=== PATIENT | female | born 1965 | race Caucasian/White ===

== ENCOUNTER 2017-01-07 20:39 | Inpatient (IN) | payer OTHER ==
[2017-01-07 22:17] LABS: Anisocytosis Slight; Basophils # (A) 0.1 k/uL (0-0.2); Basophils % (A) 1 %; CH 25.3; CHCM 30.9; Eosinophils # (A) 0.2 k/uL (0-0.7); Eosinophils % (A) 1 %; HDW 2.91; HGB 12.6 gm/dL (11.4-16.0); Hypochromasia Moderate; Luc # (Auto) 0.09; Luc % (Auto) 1; Lymphocytes # (A) 1.1 k/uL (1.0-4.8); Lymphocytes % (A) 8 %; MCH 24.7 pg (25.0-35.0); MCV 82.3 fL (80.0-100.0); Mean Platelet Volume 8.9; Monocytes # (A) 0.5 k/uL (0-1.0); Monocytes % (A) 4 %; Neutrophils # (A) 11.4 k/uL (1.3-7.7); Neutrophils % (A) 85 %; RBC 5.11 m/uL (3.80-5.40); RDW 18.3 % (11.5-15.5); WBC 13.4 k/uL (3.8-10.6); WBC (Perox) 13.98
[2017-01-07 22:18] LABS: INR 1.9 (<1.2); Partial Thromboplastin Time 41.5 sec (22.0-30.0); Prothrombin Time 18.5 sec (9.0-12.0)
[2017-01-07 22:26] LABS: ALT 26 U/L (9-52); AST 18 U/L (14-36); Alkaline Phosphatase 290 U/L (38-126); Anion Gap 15 mmol/L; Blood Urea Nitrogen 17 mg/dL (7-17); Calcium 9.2 mg/dL (8.4-10.2); Carbon Dioxide 25 mmol/L (22-30); Chloride 96 mmol/L (98-107); Glucose 107 mg/dL (74-99); Non-African American GFR(MDRD) >60 (>60 ml/min/1.73 sqM); Phosphorus 4.1 mg/dL (2.5-4.5); Potassium 3.7 mmol/L (3.5-5.1); Sodium 136 mmol/L (137-145); Total Bilirubin 0.6 mg/dL (0.2-1.3); Total Protein 7.2 g/dL (6.3-8.2)
--- NOTE | 2017-01-07 22:33 | ED ---
General Adult HPI - General Chief complaint: Shortness of Breath Stated complaint: SOB Source: EMS, RN notes reviewed, old records reviewed Mode of arrival: EMS Limitations: no limitations - History of Present Illness Initial comments: This is a 51-year-old female to the ER for evaluation today. This patient presents for evaluation in regards to shortness of breath, belly pain, swelling and patient has no history of cervical CVA. Patient accepted in transfer for evaluation, no prior testing was done. Patient has known positive PE. Not currently on anticoagulation. No fevers cough or congestion. Patient does complain of shortness of breath - Related Data Home Medications Medication Instructions Recorded Confirmed Hydrocodone/Acetaminophen [[place] 1 tab PO Q6HR PRN 01/07/17 01/07/17 5-325] Ranitidine HCl [Zantac] 150 mg PO BID 01/07/17 01/07/17 Rivaroxaban [Xarelto Starter Pack] 1 tab PO DIRECTED 01/07/17 01/07/17 Rizatriptan Benzoate [Rizatriptan] 10 mg PO DAILY PRN 01/07/17 01/07/17 diphenhydrAMINE HCL [Benadryl] 25 mg PO HS PRN 01/07/17 01/07/17 Allergies Allergy/AdvReac Type Severity Reaction Status Date / Time Penicillins Allergy Swelling Verified 01/07/17 22:20 Review of Systems ROS Statement: Those systems with pertinent positive or pertinent negative responses have been documented in the HPI. ROS Other: All systems not noted in ROS Statement are negative. Past Medical History Past Medical History: Cancer, COPD Additional Past Medical History / Comment(s): Possible cervical CA, traces of CA in liver History of Any Multi-Drug Resistant Organisms: None Reported Additional Past Surgical History / Comment(s): liver biopsy Past Psychological History: Anxiety Smoking Status: Current every day smoker Past Alcohol Use History: None Reported Past Drug Use History: None Reported General Exam Limitations: no limitations General appearance: alert, in no apparent distress Head exam: Present: atraumatic, normocephalic, normal inspection Eye exam: Present: normal appearance, PERRL, EOMI. Absent: scleral icterus, conjunctival injection, periorbital swelling ENT exam: Present: normal exam, mucous membranes moist Neck exam: Present: normal inspection. Absent: tenderness, meningismus, lymphadenopathy Respiratory exam: Present: normal lung sounds bilaterally, decreased breath sounds. Absent: respiratory distress, wheezes, rales, rhonchi, stridor Cardiovascular Exam: Present: regular rate, normal rhythm, normal heart sounds. Absent: systolic murmur, diastolic murmur, rubs, gallop, clicks GI/Abdominal exam: Present: soft, distended, normal bowel sounds, other ( Significant ascites). Absent: tenderness, guarding, rebound, rigid Extremities exam: Present: normal inspection, full ROM, normal capillary refill , other (Bilateral lower extremity edema). Absent: tenderness, pedal edema, joint swelling, calf tenderness Back exam: Present: normal inspection Neurological exam: Present: alert, oriented X3, CN II-XII intact Psychiatric exam: Present: normal affect, normal mood Skin exam: Present: warm, dry, intact, normal color. Absent: rash Course Vital Signs 01/07/17 01/07/17 01/07/17 20:42 21:15 22:18 Temperature 96.8 F L Pulse Rate 94 77 Respiratory 20 20 20 Rate Blood Pressure 112/73 102/72 O2 Sat by Pulse 98 95 Oximetry 01/07/17 01/08/17 23:11 00:08 Temperature Pulse Rate 97 95 Respiratory 20 Rate Blood Pressure 105/77 108/82 O2 Sat by Pulse 93 L 98 Oximetry - Reevaluation(s) Reevaluation #1: 01/08/17 00:18 Spoke with patient at length regarding diagnosis, questions answered EKG Findings - EKG Comments: EKG Findings:: EKG shows sinus rhythm rate of 97, [place] 128, QRS 80, QTC 469 Medical Decision Making - Medical Decision Making 51 female at a year with known PE coming in with increasing shortness of breath , 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 Patient has positive PE positive DVT, significant ascites. Patient readmitted for oncological evaluation, diagnostic and therapeutic paracentesis, anticoagulation - Lab Data Result diagrams: 01/07/17 21:31 01/07/17 21:31 Lab Results 01/07/17 01/07/17 01/07/17 Range/Units 21:31 21:31 21:31 WBC 13.4 H (3.8-10.6) k/uL RBC 5.11 (3.80-5.40) m/uL Hgb 12.6 (11.4-16.0) gm/dL Hct 42.0 (34.0-46.0) % MCV 82.3 (80.0-100.0) fL MCH 24.7 L (25.0-35.0) pg MCHC 30.0 L (31.0-37.0) g/dL RDW 18.3 H (11.5-15.5) % Plt Count 360 (150-450) k/uL Neutrophils % 85 % Lymphocytes % 8 % Monocytes % 4 % Eosinophils % 1 % Basophils % 1 % Neutrophils # 11.4 H (1.3-7.7) k/uL Lymphocytes # 1.1 (1.0-4.8) k/uL Monocytes # 0.5 (0-1.0) k/uL Eosinophils # 0.2 (0-0.7) k/uL Basophils # 0.1 (0-0.2) k/uL Hypochromasia Moderate Anisocytosis Slight PT (9.0-12.0) sec INR (<1.2) APTT (22.0-30.0) sec Sodium 136 L (137-145) mmol/L Potassium 3.7 (3.5-5.1) mmol/L Chloride 96 L (98-107) mmol/L Carbon Dioxide 25 (22-30) mmol/L Anion Gap 15 mmol/L BUN 17 (7-17) mg/dL Creatinine 0.70 (0.52-1.04) mg/dL Est GFR (MDRD) Af Amer >60 (>60 ml/min/1.73 sqM) Est GFR (MDRD) Non-Af >60 (>60 ml/min/1.73 sqM) Glucose 107 H (74-99) mg/dL Calcium 9.2 (8.4-10.2) mg/dL Phosphorus 4.1 (2.5-4.5) mg/dL Magnesium 2.0 (1.6-2.3) mg/dL Total Bilirubin 0.6 (0.2-1.3) mg/dL AST 18 (14-36) U/L ALT 26 (9-52) U/L Alkaline Phosphatase 290 H (38-126) U/L Total Creatine Kinase 55 (30-135) U/L CK-MB (CK-2) 0.7 (0.0-2.4) ng/mL CK-MB (CK-2) Rel Index 1.3 Troponin I 0.023 (0.000-0.034) ng/mL Total Protein 7.2 (6.3-8.2) g/dL Albumin 3.6 (3.5-5.0) g/dL Lipase 105 (23-300) U/L Urine Color Urine Appearance (Clear) Urine pH (5.0-8.0) Ur Specific [place] (1.001-1.035) Urine Protein (Negative) Urine Glucose (UA) (Negative) Urine Ketones (Negative) Urine Blood (Negative) Urine Nitrite (Negative) Urine Bilirubin (Negative) Urine Urobilinogen (<2.0) mg/dL Ur Leukocyte Esterase (Negative) Urine RBC (0-5) /hpf Urine WBC (0-5) /hpf Ur Squamous Epith Cells (0-4) /hpf Urine Mucus (None) /hpf 01/07/17 01/07/17 Range/Units 21:31 22:28 WBC (3.8-10.6) k/uL RBC (3.80-5.40) m/uL Hgb (11.4-16.0) gm/dL Hct (34.0-46.0) % MCV (80.0-100.0) fL MCH (25.0-35.0) pg MCHC (31.0-37.0) g/dL RDW (11.5-15.5) % Plt Count (150-450) k/uL Neutrophils % % Lymphocytes % % Monocytes % % Eosinophils % % Basophils % % Neutrophils # (1.3-7.7) k/uL Lymphocytes # (1.0-4.8) k/uL Monocytes # (0-1.0) k/uL Eosinophils # (0-0.7) k/uL Basophils # (0-0.2) k/uL Hypochromasia Anisocytosis PT 18.5 H (9.0-12.0) sec INR 1.9 H (<1.2) APTT 41.5 H (22.0-30.0) sec Sodium (137-145) mmol/L Potassium (3.5-5.1) mmol/L Chloride (98-107) mmol/L Carbon Dioxide (22-30) mmol/L Anion Gap mmol/L BUN (7-17) mg/dL Creatinine (0.52-1.04) mg/dL Est GFR (MDRD) Af Amer (>60 ml/min/1.73 sqM) Est GFR (MDRD) Non-Af (>60 ml/min/1.73 sqM) Glucose (74-99) mg/dL Calcium (8.4-10.2) mg/dL Phosphorus (2.5-4.5) mg/dL Magnesium (1.6-2.3) mg/dL Total Bilirubin (0.2-1.3) mg/dL AST (14-36) U/L ALT (9-52) U/L Alkaline Phosphatase (38-126) U/L Total Creatine Kinase (30-135) U/L CK-MB (CK-2) (0.0-2.4) ng/mL CK-MB (CK-2) Rel Index Troponin I (0.000-0.034) ng/mL Total Protein (6.3-8.2) g/dL Albumin (3.5-5.0) g/dL Lipase (23-300) U/L Urine Color Dark Yellow Urine Appearance Cloudy H (Clear) Urine pH 5.5 (5.0-8.0) Ur Specific [place] >1.050 H (1.001-1.035) Urine Protein 1+ H (Negative) Urine Glucose (UA) Negative (Negative) Urine Ketones Trace H (Negative) Urine Blood Negative (Negative) Urine Nitrite Negative (Negative) Urine Bilirubin 1+ H (Negative) Urine Urobilinogen 4.0 (<2.0) mg/dL Ur Leukocyte Esterase Negative (Negative) Urine RBC 4 (0-5) /hpf Urine WBC 6 H (0-5) /hpf Ur Squamous Epith Cells 13 H (0-4) /hpf Urine Mucus Few H (None) /hpf - Radiology Data Radiology results: report reviewed (Chest x-ray negative, ultrasound bilateral lower Short[place] positive for DVT), image reviewed Disposition Clinical Impression: Cervical cancer, DVT, bilateral lower limbs, Pulmonary emboli, Ascites Disposition: ADMITTED IP TO THIS [facility] Condition: Fair Referrals: Delonte Hadley, [Primary Care Provider] - 1-2 days
[2017-01-07 22:42] LABS: Creatine Kinase MB 0.7 ng/mL (0.0-2.4); Troponin I 0.023 ng/mL (0.000-0.034)
[2017-01-07 22:45] LABS: Appearance,Urine Cloudy (Clear); Bilirubin,Urine 1+ (Negative); Glucose,Urine (UA) Negative (Negative); Ketones,Urine Trace (Negative); Leukocyte Esterase,Urine Negative (Negative); Mucus,Urine Few /hpf; Nitrite,Urine Negative (Negative); PH, Urine 5.5 (5.0-8.0); Particle Count 15164; Protein,Urine 1+ (Negative); RBC,Urine 4 /hpf (0-5); Squamous Epithelial Cell,Urine 13 /hpf (0-4); UA Billing (MACRO vs. MICRO) MICRO; WBC,Urine 6 /hpf (0-5)
[2017-01-07 22:48] LABS: Specific Gravity,Urine >1.050 (1.001-1.035)
--- NOTE | 2017-01-07 23:38 | US ---
EXAMINATION TYPE: US venous doppler duplex LE LT DATE OF EXAM: 01/07/2017 11:23 PM COMPARISON: NONE CLINICAL HISTORY: Pain. right leg edma SIDE PERFORMED: Right TECHNIQUE: The lower extremity deep venous system is examined utilizing real time linear array sonog codie with graded compression, doppler sonography and color-flow sonography. VESSELS IMAGED: External Iliac Vein (EIV) Common Femoral Vein Deep Femoral Vein Greater Saphenous Vein * Femoral Vein Popliteal Vein Small Saphenous Vein * Proximal Calf Veins (* superficial vessels) Right Leg: Positive for DVT Left Leg: Positive for DVT Positive DVT right femoral vein, popiteal vein and left common femoral vein IMPRESSION: The exam shows evidence of bilateral acute deep venous thrombosis in the legs.
[2017-01-08] MEDS ORDERED: HEPARIN SODIUM,PORCINE 5,000 UNIT/ML 1 ML VIAL IV PRN (00:14)
[2017-01-08] MEDS ORDERED: HEPARIN SODIUM,PORCINE 5,000 UNIT/ML 1 ML VIAL IV ONE (00:14)
[2017-01-08] MEDS ORDERED: MORPHINE SULFATE 2 MG/ML SYRINGE IVP STA (00:15)
[2017-01-08] MEDS ORDERED: ONDANSETRON 4 MG/2 ML VIAL IVP PRN ×2 (00:15→01:54)
[2017-01-08] MEDS ORDERED: ONDANSETRON 4 MG/2 ML VIAL IVP STA (00:15)
[2017-01-08] MEDS ORDERED: MORPHINE SULFATE 2 MG/ML SYRINGE IVP PRN (00:15)
[2017-01-08] MEDS ORDERED: SODIUM CHLORIDE 0.9% 1,000 ML IV ONE (00:15)
[2017-01-08] MEDS: HEPARIN SODIUM,PORCINE/D5W PMX 25,000 UNIT in DEXTROSE/WATER 1 500ML.BAG IV SCH ×2 (00:44→16:19)
--- NOTE | 2017-01-08 01:39 | XR ---
EXAMINATION TYPE: XR chest 2V DATE OF EXAM: 01/08/2017 COMPARISON: NONE HISTORY: Chest pain TECHNIQUE: Frontal and lateral views of the chest are obtained. FINDINGS: There is blunting of costophrenic angles. Heart appears enlarged. There is some infiltrate at the lung bases bilaterally. There are chest leads. I see no definite heart failure. The bony thor ax appears intact. IMPRESSION: Bilateral pleural effusions with basilar pulmonary infiltrates. Cardiomegaly. No gross h eart failure seen. There are large central pulmonary arteries probably due to pulmonary hypertension.
[2017-01-08] MEDS ORDERED: ACETAMINOPHEN TAB 325 MG TAB PO PRN (01:54)
[2017-01-08] MEDS ORDERED: NALOXONE 0.4 MG/ML 1 ML VIAL IV PRN (01:54)
[2017-01-08] MEDS ORDERED: diphenhydrAMINE 25 MG CAP PO PRN (01:59)
[2017-01-08] MEDS ORDERED: SUMAtriptan SUCCINATE 50 MG TAB PO PRN (01:59)
[2017-01-08 02:06] VITALS: BMI 32.0
--- NOTE | 2017-01-08 02:37 | P.HPIM ---
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 Her legs have also been becoming more and more swollen right more than left. She has also been feeling dizzy, weak and nauseous as well. No fevers or chills but she was always feeling cold. Patient was diagnosed with cancer by the end of October by an outside facility but she did not see an oncologist yet. She told me she had an appointment on the with an oncologist. It has been hard for her to ambulate for the last several days secondary to significant weakness as well as the above symptoms. She does not recall any sick contacts or recent travel. At the outside facility patient was diagnosed with pulmonary embolism and deep venous thrombosis, she was started on Xarelto which she has some difficulties obtaining secondary to insurance issues. She also stopped taking it as because of significant abdominal pain. She presented to [facility] initially and over there she had a computed tomography scan of the chest and that showed significant bilateral pleural effusions greater on the right side as well as diffuse bilateral pulmonary emboli associated with right ventricular strain. Review of Systems 12 point review of system performed, negative except for HPI Past Medical History Past Medical History: Cancer, COPD, Deep Vein Thrombosis (DVT) Additional Past Medical History / Comment(s): Possible cervical CA, traces of CA in liver, enlarged heart History of Any Multi-Drug Resistant Organisms: None Reported Additional Past Surgical History / Comment(s): liver biopsy, history of cervical cancer removal many years ago. Past Anesthesia/Blood Transfusion Reactions: No Reported Reaction Past Psychological History: Anxiety Smoking Status: Current some day smoker Past Alcohol Use History: None Reported Past Drug Use History: None Reported - Past Family History Father History Unknown: Yes Family Medical History: Cancer, Hypertension Additional Family Medical History / Comment(s): after cancer went to brain Mother History Unknown: Yes Family Medical History: Coronary Artery Disease (CAD), Hyperlipidemia, Hypertension, Myocardial Infarction ([place]) Additional Family Medical History / Comment(s): heart caths with stents Medications and Allergies Home Medications Medication Instructions Recorded Confirmed Type Hydrocodone/Acetaminophen [[place] 1 tab PO Q6HR PRN 01/07/17 01/07/17 History 5-325] Ranitidine HCl [Zantac] 150 mg PO BID 01/07/17 01/07/17 History Rivaroxaban [Xarelto Starter Pack] 1 tab PO DIRECTED 01/07/17 01/07/17 History Rizatriptan Benzoate [Rizatriptan] 10 mg PO DAILY PRN 01/07/17 01/07/17 History diphenhydrAMINE HCL [Benadryl] 25 mg PO HS PRN 01/07/17 01/07/17 History Allergies Allergy/AdvReac Type Severity Reaction Status Date / Time Penicillins Allergy Swelling Verified 01/07/17 22:20 Physical Exam Vitals: Vital Signs Temp Pulse Pulse Resp BP BP Pulse Ox 01/08/17 01:51 97.3 F L 89 20 104/72 94 L 01/08/17 01:30 83 18 111/73 94 L 01/08/17 01:17 82 97 01/08/17 00:26 97.4 F L 92 20 102/75 96 01/08/17 00:08 95 108/82 98 01/07/17 23:11 97 20 105/77 93 L 01/07/17 22:18 77 20 102/72 95 01/07/17 21:15 20 01/07/17 20:42 96.8 F L 94 20 112/73 98 Intake and Output 01/07/17 01/07/17 01/08/17 14:59 22:59 06:59 Intake Total 150 Balance 150 Intake: Amount of Fluid Infused ( 150 ml) Other: Weight 71.668 kg 79.5 kg Patient Weight 01/08/17 06:59 Weight 79.5 kg Constitutional: No acute distress, conversant, pleasant Eyes:Anicteric sclerae, moist conjunctiva, no lid-lag, PERRLA, ENMT: Oropharynx clear, no erythema, exudates Neck: Supple, FROM, no masses, or JVD, No carotid bruits, No thyromegaly Lungs: Clear to auscultation, Clear to percussion, Normal respiratory effort, no accessory muscle use Cardiovascular: Heart regular in rate and rhythm, No murmurs, gallops, or rubs, 2+ peripheral edema R>L Abdominal: Soft, diffusely tender, severely distended, no guarding, rebound or rigidity, No hepatomegaly, No splenomegaly, No palpable mass Skin: Normal temperature, tone, texture, turgor, no induration, No subcutaneous nodules, No rash, lesions, No ulcers Extremities: No digital cyanosis, No clubbing, Pedal pulses intact and symmetrical, Radial pulses intact and symmetrical, No calf tenderness Psychiatric: Alert and oriented to person, place and time, appropriate affect, intact judgement Neuro: Muscles Strength 5/5 in all 4 extremities, Sensation to light touch grossly present throughout, Cranial nerves II-XII grossly intact, no focal sensory deficits Results CBC & Chem 7: 01/07/17 21:31 01/07/17 21:31 Labs: Abnormal Lab Results - Last 24 Hours (Table) 01/07/17 01/07/17 01/07/17 Range/Units 21:31 21:31 21:31 WBC 13.4 H (3.8-10.6) k/uL MCH 24.7 L (25.0-35.0) pg MCHC 30.0 L (31.0-37.0) g/dL RDW 18.3 H (11.5-15.5) % Neutrophils # 11.4 H (1.3-7.7) k/uL PT 18.5 H (9.0-12.0) sec INR 1.9 H (<1.2) APTT 41.5 H (22.0-30.0) sec Sodium 136 L (137-145) mmol/L Chloride 96 L (98-107) mmol/L Glucose 107 H (74-99) mg/dL Alkaline Phosphatase 290 H (38-126) U/L Urine Appearance (Clear) Ur Specific [place] (1.001-1.035) Urine Protein (Negative) Urine Ketones (Negative) Urine Bilirubin (Negative) Urine WBC (0-5) /hpf Ur Squamous Epith Cells (0-4) /hpf Urine Mucus (None) /hpf 01/07/17 Range/Units 22:28 WBC (3.8-10.6) k/uL MCH (25.0-35.0) pg MCHC (31.0-37.0) g/dL RDW (11.5-15.5) % Neutrophils # (1.3-7.7) k/uL PT (9.0-12.0) sec INR (<1.2) APTT (22.0-30.0) sec Sodium (137-145) mmol/L Chloride (98-107) mmol/L Glucose (74-99) mg/dL Alkaline Phosphatase (38-126) U/L Urine Appearance Cloudy H (Clear) Ur Specific [place] >1.050 H (1.001-1.035) Urine Protein 1+ H (Negative) Urine Ketones Trace H (Negative) Urine Bilirubin 1+ H (Negative) Urine WBC 6 H (0-5) /hpf Ur Squamous Epith Cells 13 H (0-4) /hpf Urine Mucus Few H (None) /hpf Thrombosis Risk Factor Assmnt - Choose All That Apply Any of the Below Risk Factors Present?: Yes Each Factor Represents 1 point: Age 41-60 years, Swollen legs (current) Other Risk Factors: Yes Each Risk Factor Represents 3 Points: History of DVT/PE Thrombosis Risk Factor Assessment Total Risk Factor Score: 5 Thrombosis Risk Factor Assessment Level: High Risk Assessment and Plan Plan: #1 acute bilateral pulmonary emboli, recent DVTs bilaterally: According to patient she did have an IVC filter put in at the outside facility, we'll need to obtain records in the morning. Started on heparin IV, will continue Likely switch to xarelto when stable #2 unknown type of cancer cervical vs. ovarian vs. other types: Oncology consult #3 severe ascites Likely secondary to intra-abdominal cancer combined with the liver metastases Likely need paracentesis
[2017-01-08 07:57] LABS: ALT 23 U/L (9-52); AST 14 U/L (14-36); Alkaline Phosphatase 220 U/L (38-126); Anion Gap 14 mmol/L; Blood Urea Nitrogen 15 mg/dL (7-17); Calcium 8.5 mg/dL (8.4-10.2); Carbon Dioxide 26 mmol/L (22-30); Chloride 97 mmol/L (98-107); Glucose 100 mg/dL (74-99); Magnesium 1.9 mg/dL (1.6-2.3); Non-African American GFR(MDRD) >60 (>60 ml/min/1.73 sqM); Phosphorus 4.1 mg/dL (2.5-4.5); Sodium 137 mmol/L (137-145); Total Bilirubin 0.4 mg/dL (0.2-1.3)
[2017-01-08 08:00] LABS: Anisocytosis Slight; Basophils # (A) 0.1 k/uL (0-0.2); Basophils % (A) 1 %; CH 24.7; Eosinophils # (A) 0.2 k/uL (0-0.7); Eosinophils % (A) 2 %; HCT 35.7 % (34.0-46.0); HDW 2.79; HGB 10.6 gm/dL (11.4-16.0); Hypochromasia Marked; Luc # (Auto) 0.14; Luc % (Auto) 1; Lymphocytes # (A) 1.2 k/uL (1.0-4.8); Lymphocytes % (A) 10 %; MCH 24.5 pg (25.0-35.0); MCHC 29.6 g/dL (31.0-37.0); MCV 82.6 fL (80.0-100.0); Mean Platelet Volume 9.1; Monocytes # (A) 0.8 k/uL (0-1.0); Monocytes % (A) 6 %; Neutrophils # (A) 10.6 k/uL (1.3-7.7); Neutrophils % (A) 81 %; RBC 4.32 m/uL (3.80-5.40); RDW 17.7 % (11.5-15.5); WBC 13.1 k/uL (3.8-10.6); WBC (Perox) 13.85
[2017-01-08 08:31] LABS: Hypersegmented Neutrophils Present; Large Platelets Present
[2017-01-08] MEDS ORDERED: IOHEXOL 350 MG/ML 25 ML BOTTLE (ORAL USE) PO PRN (08:34)
[2017-01-08] MEDS ORDERED: RX INFO: IV CONTRAST WAS GIVEN 1 EACH MISC MISCELLANE PRN (08:34)
[2017-01-08] MEDS: HYDROcodone/APAP 5-325MG 1 EACH TAB PO PRN ×2 (10:04→22:55)
[2017-01-08] MEDS: FAMOTIDINE 20 MG TAB PO SCH ×2 (10:05→20:06)
--- NOTE | 2017-01-08 13:15 | P.PN ---
Progress Note - Text Progress Note Date: 01/08/17 briefly this is a 51-year-old female with a diagnosis of cancer with metastasis , she does not know the primary (suspected cervical cancer versus ovarian) who presented with increasing abdominal distention pain and shortness of breath at the progressive lower extremity swelling, the patient apparently received most of her workup at [facility] but has not seen an oncologist she also was diagnosed with DVT and PE and reports having IVC filter. She has been off her Xarelto for the past month. She reportedly had a CT abdomen and pelvis a week ago done in [facility] results unknown. Except there is noted ascites with shifting dullness and abdominal distention. We will consult oncology and GI, we'll initiate diuresis started her on Lasix 40mg IV BID. We' ll request records from [facility] at [facility]. WE'LL await recommendations from consultants and continue to follow her clinical course
[2017-01-08] MEDS: FUROSEMIDE 10 MG/ML 4 ML VIAL IV SCH ×2 (14:18→20:07)
[2017-01-08] MEDS ORDERED: PHYTONADIONE 5 MG in SODIUM CHLORIDE 0.9% 50 ML IVPB STA (18:24)
--- NOTE | 2017-01-08 18:24 | P.CONS ---
History of Present Illness - Reason for Consult Consult date: 01/08/17 Metastatic malignancy. Ascites and pleural effusions - History of Present Illness The patient is a 51-year-old lady, with the complicated recent past medical history. She had presented to [facility] with increasing shortness of breath and lower extremity swelling, in late 11/12. She was found to have bilateral PE and DVT. Imaging at that time also revealed evidence of lesions in the liver suggestive of metastasis. She underwent a liver biopsy on 11/24/16. Tumor markers revealed markedly [place] 19-9[place] [address]. CEA was also elevated at 2720, with the CT a 125 increased to a much lesser extent at 198. AFP was normal at 2.3. Biopsy came back positive for moderately differentiated adenocarcinoma, most consistent with upper GI/ pancreatobiliary primary though lung was not totally ruled out. Around this time the patient apparently had a Pap smear that showed some atypical squamous cells but no definite evidence of malignancy. During that admission, the patient also had an IVC filter placed. She was prescribed as Xarelto on discharge, but apparently was not taking it regularly, due to coverage issues. Chest x-ray on 11/18/16 had shown bibasilar infiltrates and pleural effusions. CT chest abdomen and pelvis on 11/19/16 had revealed bilateral pulmonary emboli involving upper, middle and lower lobe branches. There was a small pleural effusion on the left side as well as a small speculated subpleural nodule in the left chest measuring 0.8 cm. There was also a 5 mm nodule in the right lung base. A CT of the abdomen had shown diffusely enlarged liver, nearly 20 cm, with multiple ill-defined hypodense lesions throughout consistent with metastasis, largest in the left lobe measuring 4.4 cm and the largest in the right measuring 4.6 cm. The spleen had also shown innumerable variable size fluid attenuation nodules largest anteriorly measuring 3.1 cm. Pancreatic and adrenal glands were negative. There was extensive mesenteric hyperdensity in the left anterior upper abdomen highly suggestive of peritoneal/omental metastatic deposits. Enlarged lymph nodes were noted in the left iliac and femoral regions. CT pelvis showed a moderate amount of ascites. Lower exudate Doppler had shown bilateral DVT, more extensive on the left compared to the right oncology follow-up was recommended, but according to the patient this was delayed as she could not find an oncologist near her would occur insurance. She was ultimately sent up to see Dr. De La Vega next week in the office. She went to the emergency room at [facility], on 12/31/16 complaining of some abdominal distention. Alpha phosphatase was elevated on labs at 217. She had a transvaginal ultrasound at that time that showed normal-appearing uterus, with a small cyst on the right ovary and the left ovary not visualized. Abdominal ultrasound again showed multiple lesions in the liver and spleen, and now development of ascites. She then came back to the ER at [facility] on 01/07/17, complaining of progressive shortness of breath as well as abdominal distention over the past few days. She had a repeat CTA done, which now showed progression of pleural effusions greater on the right than the left. Bilateral PE again noted, with decrease in clot burden. Compared to prior computed tomography scan done on there appeared to be progression of disease in the liver. The patient was thus transferred here, for further management. Consult was placed for further evaluation and recommendations. The patient denied any prior history of malignancy personally. She is a somewhat poor historian, and initially stated that she was told that she has cervical cancer. There is no history of breast or ovarian cancer in the family. He states that her father of some kind of cancer metastatic to the brain Review of Systems Constitutional: Reports fatigue, Reports poor appetite, Reports weakness, Reports weight loss Eyes: denies blurred vision, denies pain Ears: deny: decreased hearing, ear discharge, earache, tinnitus Ears, nose, mouth and throat: Denies headache, Denies sore throat Cardiovascular: Reports orthopnea, Reports palpitations, Reports shortness of breath Respiratory: Reports dyspnea, Reports pain on inspiration Gastrointestinal: Reports bloating, Reports loss of appetite Genitourinary: Denies dysuria, Denies hematuria Menstruation: Reports postmenopausal Musculoskeletal: Reports as per HPI (LE swelling) Integumentary: Denies pruritus, Denies rash Neurological: Reports weakness Psychiatric: Reports anxiety Endocrine: Reports fatigue, Reports weight change Hematologic/Lymphatic: Reports thrombophilia Past Medical History Past Medical History: Cancer, COPD, Deep Vein Thrombosis (DVT) Additional Past Medical History / Comment(s): Possible cervical CA, traces of CA in liver, enlarged heart History of Any Multi-Drug Resistant Organisms: None Reported Additional Past Surgical History / Comment(s): liver biopsy, history of cervical cancer removal many years ago. Past Anesthesia/Blood Transfusion Reactions: No Reported Reaction Past Psychological History: Anxiety Smoking Status: Current some day smoker Past Alcohol Use History: None Reported Past Drug Use History: None Reported - Past Family History Father History Unknown: Yes Family Medical History: Cancer, Hypertension Additional Family Medical History / Comment(s): after cancer went to brain Mother History Unknown: Yes Family Medical History: Coronary Artery Disease (CAD), Hyperlipidemia, Hypertension, Myocardial Infarction ([place]) Additional Family Medical History / Comment(s): heart caths with stents Medications and Allergies Home Medications Medication Instructions Recorded Confirmed Type Hydrocodone/Acetaminophen [[place] 1 tab PO Q6HR PRN 01/07/17 01/07/17 History 5-325] Ranitidine HCl [Zantac] 150 mg PO BID 01/07/17 01/07/17 History Rivaroxaban [Xarelto Starter Pack] 1 tab PO DIRECTED 01/07/17 01/07/17 History Rizatriptan Benzoate [Rizatriptan] 10 mg PO DAILY PRN 01/07/17 01/07/17 History diphenhydrAMINE HCL [Benadryl] 25 mg PO HS PRN 01/07/17 01/07/17 History Allergies Allergy/AdvReac Type Severity Reaction Status Date / Time Penicillins Allergy Swelling Verified 01/07/17 22:20 Physical Exam Vitals: Vital Signs Temp Pulse Pulse Resp BP BP Pulse Ox 01/08/17 11:58 97.5 F L 91 18 96/71 97 01/08/17 09:45 97.0 F L 96 18 108/79 96 01/08/17 04:00 89 18 100/74 94 L 01/08/17 01:51 97.3 F L 89 20 104/72 94 L 01/08/17 01:30 83 18 111/73 94 L 01/08/17 01:17 82 97 01/08/17 00:26 97.4 F L 92 20 102/75 96 01/08/17 00:08 95 108/82 98 01/07/17 23:11 97 20 105/77 93 L 01/07/17 22:18 77 20 102/72 95 01/07/17 21:15 20 01/07/17 20:42 96.8 F L 94 20 112/73 98 Intake and Output 01/08/17 01/08/17 01/08/17 06:59 14:59 22:59 Intake Total 550 100 837.05 Output Total 1000 Balance 550 100 -162.95 Intake: Amount of Fluid Infused ( 150 ml) Intake, IV Titration 400 777.05 Amount Heparin Sodium,Porcine/ 402.05 D5w Pmx 25,000 unit In Dextrose/Water 1 500ml. bag @ 18 UNITS/KG/HR 25.8 mls/hr IV .[id number] [facility] Rx#:[id number] Sodium Chloride 0.9% 1, 400 375 000 ml @ 100 mls/hr IV . Q10H ONE Rx#:[id number] Oral 100 60 Output: Urine 1000 Other: Voiding Method Bedpan Weight 79.5 kg - Constitutional General appearance: mild distress - EENT Eyes: EOMI, PERRLA ENT: hearing grossly normal, normal oropharynx - Neck Neck: no lymphadenopathy - Respiratory Respiratory: bilateral: diminished - Cardiovascular Rhythm: regular Heart sounds: normal: S1, S2 - Gastrointestinal General gastrointestinal: distended, hepatomegaly Localized gastrointestinal: tender: RUQ - Integumentary Integumentary: normal - Neurologic Neurologic: CNII-XII intact - Musculoskeletal 2 + LE edema Musculoskeletal: generalized weakness, strength equal bilaterally - Psychiatric Psychiatric: A&O x's 3, appropriate affect Results CBC & Chem 7: 01/08/17 05:44 01/08/17 05:44 Labs: Abnormal Lab Results - Last 24 Hours (Table) 01/07/17 01/07/17 01/07/17 Range/Units 21:31 21:31 21:31 WBC 13.4 H (3.8-10.6) k/uL Hgb (11.4-16.0) gm/dL MCH 24.7 L (25.0-35.0) pg MCHC 30.0 L (31.0-37.0) g/dL RDW 18.3 H (11.5-15.5) % Neutrophils # 11.4 H (1.3-7.7) k/uL PT 18.5 H (9.0-12.0) sec INR 1.9 H (<1.2) APTT 41.5 H (22.0-30.0) sec Sodium 136 L (137-145) mmol/L Chloride 96 L (98-107) mmol/L Glucose 107 H (74-99) mg/dL Alkaline Phosphatase 290 H (38-126) U/L Total Protein (6.3-8.2) g/dL Albumin (3.5-5.0) g/dL Urine Appearance (Clear) Ur Specific [place] (1.001-1.035) Urine Protein (Negative) Urine Ketones (Negative) Urine Bilirubin (Negative) Urine WBC (0-5) /hpf Ur Squamous Epith Cells (0-4) /hpf Urine Mucus (None) /hpf 01/07/17 01/08/17 01/08/17 Range/Units 22:28 05:44 05:44 WBC 13.1 H (3.8-10.6) k/uL Hgb 10.6 L (11.4-16.0) gm/dL MCH 24.5 L (25.0-35.0) pg MCHC 29.6 L (31.0-37.0) g/dL RDW 17.7 H (11.5-15.5) % Neutrophils # 10.6 H (1.3-7.7) k/uL PT (9.0-12.0) sec INR (<1.2) APTT 59.2 H (22.0-30.0) sec Sodium (137-145) mmol/L Chloride (98-107) mmol/L Glucose (74-99) mg/dL Alkaline Phosphatase (38-126) U/L Total Protein (6.3-8.2) g/dL Albumin (3.5-5.0) g/dL Urine Appearance Cloudy H (Clear) Ur Specific [place] >1.050 H (1.001-1.035) Urine Protein 1+ H (Negative) Urine Ketones Trace H (Negative) Urine Bilirubin 1+ H (Negative) Urine WBC 6 H (0-5) /hpf Ur Squamous Epith Cells 13 H (0-4) /hpf Urine Mucus Few H (None) /hpf 01/08/17 Range/Units 05:44 WBC (3.8-10.6) k/uL Hgb (11.4-16.0) gm/dL MCH (25.0-35.0) pg MCHC (31.0-37.0) g/dL RDW (11.5-15.5) % Neutrophils # (1.3-7.7) k/uL PT (9.0-12.0) sec INR (<1.2) APTT (22.0-30.0) sec Sodium (137-145) mmol/L Chloride 97 L (98-107) mmol/L Glucose 100 H (74-99) mg/dL Alkaline Phosphatase 220 H (38-126) U/L Total Protein 6.0 L (6.3-8.2) g/dL Albumin 2.8 L (3.5-5.0) g/dL Urine Appearance (Clear) Ur Specific [place] (1.001-1.035) Urine Protein (Negative) Urine Ketones (Negative) Urine Bilirubin (Negative) Urine WBC (0-5) /hpf Ur Squamous Epith Cells (0-4) /hpf Urine Mucus (None) /hpf Microbiology - Last 24 Hours (Table) 01/07/17 22:28 Urine Culture - Preliminary Urine,Voided Assessment and Plan (1) Dyspnea Narrative/Plan: The patient does have a known recent pulmonary embolus, and was not on anticoagulation regularly. However she states that she had been taking her Xarelto over the last few days with the last dose yesterday. CTA from yesterday showed decrease in size of the clot burden. At this time, I believe that her shortness of breath is more due to progression of pleural effusion and ascites. She is currently stable on oxygen, saturating 96% on 2 L. For further improvement, she is likely going to need fluid drainage from the peritoneal cavity and possibly the lung. Status: Acute (2) Ascites Narrative/Plan: This has been significantly progressive over the past week. At this time, I believe this is a significant component of her shortness of breath. There is also causing her marked discomfort. Therefore paracentesis is indicated. Consult had been placed to interventional radiology, but the procedure was held due to concerns about the patient's recent PE and the need to stop anticoagulation for the procedure. Had an extensive discussion with interventional radiology. The patient, clinically, should have significant benefit from the procedure. She is currently on IV heparin. Her clot is more than a month old. Her current symptoms are most likely not from the clot, but due to her pleural effusions and ascites. Therefore stopping anticoagulation for a few hours for this procedure should carry comparatively low risk. In addition, the patient actually has an IVC filter placed, in which case the risk of recurrent PE with stopping heparin for a few hours is essentially minimal. Radiology we'll therefore schedule the procedure for tomorrow. Heparin will be held, 2-4 hours prior to procedure, as recommended by radiology, and resumed after the procedure. Cytology will be ordered on the ascites fluid Status: Acute (3) Pulmonary emboli Narrative/Plan: The patient has bilateral PE and DVT. As noted, these are more than a month old. The patient was not taking her anticoagulation regularly in the interim, but appears to have been doing so more regularly over the last few days. Clot burden was diminished as noted. Current symptoms are felt to be more related to pleural effusion and ascites rather than her PE. The patient is currently on IV heparin. Continue IV heparin, until any planned invasive procedures are completed. She may need a thoracentesis. Once invasive procedures have been completed, she can resume Xarelto. Status: Acute (4) Metastatic adenocarcinoma Narrative/Plan: The patient's liver biopsy showed metastatic adenocarcinoma. She gave a history of cervical cancer. However her Pap smear had shown atypical squamous cells but no definite malignancy. In any case the histology in the liver as adenocarcinoma. Therefore she does NOT have a diagnosis of cervical cancer. She appears to have extensive metastatic disease from adenocarcinoma of upper GI /pancreatobiliary origin. Based on the very high CA 199 level, pancreaticobiliary origin is somewhat favored. She'll follow-up in the office with Dr. sahu, once acute conditions are controlled, to discuss treatment options Status: Acute (5) Coagulopathy Narrative/Plan: Her INR on admission was 1.9. This could be due to Xarelto affect, which usually lasts about 12-24 hours. However there could be a component of liver dysfunction also. I will give her a dose of IV vitamin K, given the planned procedure. PT INR will be checked in the a.m. there is no risk from reversing the INR, as the patient is being anticoagulated with IV heparin. In fact not reversing it, while the patient is on IV heparin could increase risk of bleeding Status: Acute
[2017-01-09] MEDS: HYDROcodone/APAP 5-325MG 1 EACH TAB PO PRN ×3 (04:42→19:41)
[2017-01-09] MEDS: HYDROmorphone 1 MG/ML 1 ML SYRINGE IV PRN (05:36)
[2017-01-09 06:55] LABS: Anisocytosis Slight; Basophils # (A) 0.1 k/uL (0-0.2); Basophils % (A) 1 %; CH 25.2; CHCM 30.8; Eosinophils # (A) 0.3 k/uL (0-0.7); Eosinophils % (A) 2 %; HCT 38.2 % (34.0-46.0); HDW 3.05; HGB 11.1 gm/dL (11.4-16.0); Hypochromasia Moderate; Luc # (Auto) 0.14; Luc % (Auto) 1; Lymphocytes # (A) 1.6 k/uL (1.0-4.8); Lymphocytes % (A) 13 %; MCH 23.9 pg (25.0-35.0); MCHC 29.1 g/dL (31.0-37.0); MCV 82.4 fL (80.0-100.0); Mean Platelet Volume 8.6; Monocytes # (A) 0.7 k/uL (0-1.0); Monocytes % (A) 5 %; Neutrophils # (A) 10.2 k/uL (1.3-7.7); Neutrophils % (A) 78 %; RBC 4.63 m/uL (3.80-5.40); RDW 18.5 % (11.5-15.5); WBC 13.1 k/uL (3.8-10.6); WBC (Perox) 12.79
[2017-01-09 07:04] LABS: INR 1.2 (<1.2); Partial Thromboplastin Time 32.7 sec (22.0-30.0)
[2017-01-09] MEDS: FAMOTIDINE 20 MG TAB PO SCH ×2 (08:13→19:43)
[2017-01-09] MEDS: FUROSEMIDE 10 MG/ML 4 ML VIAL IV SCH ×2 (10:21→19:43)
[2017-01-09] MEDS: ONDANSETRON 4 MG/2 ML VIAL IVP PRN ×2 (10:43→15:10)
--- NOTE | 2017-01-09 10:45 | CONS ---
CONSULTATION DATE OF DICTATION: 01/09/2017 REASON FOR CONSULTATION: Ascites. HISTORY OF PRESENT ILLNESS: The patient is a 51-year-old pleasant white female who was diagnosed with metastatic malignancy of unknown primary in October of 2016. Apparently in October of 2016 she presented with shortness of breath and lower extremity swelling, diagnosed with DVT, PE, and further workup revealed multiple lesions in the liver suspicious for metastasis. She underwent A liver biopsy that showed adenocarcinoma and also was noted to have elevated tumor markers of CEA as well as CA-19.9. The patient was discharged home on Xarelto; however, because of insurance reasons, she was not taking it regularly. She is regarding-admitted to the hospital with worsening shortness of breath, abdominal distention for the last 2 days' duration, and now diagnosed with massive ascites. She has been complaining of some abdominal discomfort, occasional nausea, vomiting, not feeling well over the last several weeks. She also has lower extremity swelling that started around 3 to 4 weeks. She denies any history of chronic liver disease. Denies any alcohol use. No history of jaundice or hepatitis in the past. PAST MEDICAL HISTORY: Her past medical history is significant for: 1. Newly diagnosed metastatic carcinoma of the liver. 2. History of COPD. 3. DVT/PE about 2 months ago. 4. Questionable cervical cancer. MEDICATIONS AT HOME: Medications at home include: 1. Xarelto. 2. Zantac. 3. [place]. 4. Benadryl. ALLERGIES: PENICILLIN. SOCIAL HISTORY: Denies any smoking or alcohol use. FAMILY HISTORY: Mother had some kind of cancer and hypertension. Father has coronary artery disease and hyperlipidemia. REVIEW OF SYSTEMS: CARDIOPULMONARY: No chest pain, but she does complain of shortness of breath. GENITOURINARY: No dysuria, hematuria. MUSCULOSKELETAL: Unremarkable. SKIN: Unremarkable. NEUROLOGY: Unremarkable. ENT/VISION: Unremarkable. CONSTITUTIONAL: Progressive weight loss. No fever, chills, night sweats. PHYSICAL EXAMINATION: She appears comfortable. Blood pressure is 107/77, pulse rate 71, temperature 97.1. HEENT EXAMINATION: Unremarkable. Conjunctivae are pink, sclerae anicteric. Oral cavity with no lesions. NECK: No JVD or lymph node enlargement. Chest was clear to auscultation. HEART: Regular rate and rhythm. ABDOMEN: Distended. Fluid thrill present. It was non-tender. EXTREMITIES: Two plus pedal edema. SKIN: No rashes. NEURO: She is alert and oriented x3. No focal deficits. IMAGING: Chest x-ray done at the time of admission to the hospital showed bilateral pleural effusions with basilar pulmonary infiltrates noted. CT of the abdomen done at [facility] prior to transfer showed hepatomegaly with multiple lesions in the liver and moderate amount of ascites. LABS FROM TODAY: WBC 13.1, hemoglobin 11.3, platelets 405. INR is 1.2. Basic metabolic panel is within normal limits. IMPRESSION: 1. This is a lady with history of metastatic malignancy to the liver of unknown primary, probably pancreatobiliary or upper GI in origin, who was seen by Dr. Bhat on consultation yesterday. She presents with shortness of breath, progressive abdominal distention and lower extremity swelling for the last several weeks' duration. CT of the abdomen apparently done at [facility] did show evidence of moderate amount of ascites. Clinically patient has significant amount of ascites. 2. History of DVT/PE, presently on Xarelto, which is on hold since yesterday. Presently on IV heparin. Most likely her ascites is related to metastatic malignancy. No history of chronic liver disease. RECOMMENDATIONS: I agree with Dr. Bhat's recommendation of proceeding with large-volume paracentesis for therapeutic purposes. According to the nursing staff, the patient is scheduled for large-volume paracentesis today. We will follow the patient closely during her hospital stay. Thank you for this consultation. MMODL / IJN: [id number] /
--- NOTE | 2017-01-09 15:03 | P.PN ---
Subjective Progress Note Date: 01/09/17 Principal diagnosis: The patient is a 51-year-old lady, with the complicated recent past medical history. She had presented to [facility] with increasing shortness of breath and lower extremity swelling, in late 11/12. She was found to have bilateral PE and DVT. Imaging at that time also revealed evidence of lesions in the liver suggestive of metastasis. She underwent a liver biopsy on 11/24/16. Tumor markers revealed markedly [place] 19[place] [address]. CEA was also elevated at 2720, with the CT a 125 increased to a much lesser extent at 198. AFP was normal at 2.3. Biopsy came back positive for moderately differentiated adenocarcinoma, most consistent with upper GI/ pancreatobiliary primary though lung was not totally ruled out. Around this time the patient apparently had a Pap smear that showed some atypical squamous cells but no definite evidence of malignancy. During that admission, the patient also had an IVC filter placed and discharged home and Xarelto, she was transferred here from [place] for progressive worsening dyspnea previous CT done there was consistent with a moderate amount of ascites Today patient is feeling pretty fatigued and tired denies any lightheadedness report some weakness, denies any improvement of her shortness of breath. No acute events overnight Objective - Vital Signs Vital signs: Vital Signs Temp 97.1 F L 01/09/17 04:00 Pulse 84 01/09/17 11:41 Resp 16 01/09/17 11:41 BP 97/75 01/09/17 11:41 Pulse Ox 93 L 01/09/17 11:41 Intake & Output 01/08/17 01/09/17 01/09/17 18:59 06:59 18:59 Intake Total 937.05 625 475.43 Output Total 1000 1350 150 Balance -62.95 -725 325.43 Weight 80.5 kg Intake: IV 25 45 0.9@5mls/hr 25 45 Intake, IV Titration 777.05 430.43 Amount Heparin Sodium,Porcine/ 402.05 430.43 D5w Pmx 25,000 unit In Dextrose/Water 1 500ml. bag @ 18 UNITS/KG/HR 25.8 mls/hr IV .[id number] [facility] Rx#:[id number] Sodium Chloride 0.9% 1, 375 000 ml @ 100 mls/hr IV . Q10H ONE Rx#:[id number] Oral 160 600 Output: Urine 1000 1350 150 Other: Voiding Method Bedpan Bedpan Bedpan # Voids 1 - Exam Constitutional: No acute distress, conversant, pleasant Eyes: Anicteric sclerae, moist conjunctiva, no lid-lag, PERRLA ENMT: NC/AT,Oropharynx clear, no erythema, exudates Neck:Supple, FROM, no masses, or JVD, No carotid bruits; No thyromegaly Lungs: Clear to auscultation but diminished in the bases bilaterally, Clear to percussion, Normal respiratory effort, no accessory muscle use Cardiovascular: Heart regular in rate and rhythm, No murmurs, gallops, or rubs no peripheral edema Abdominal: Soft Nontender, distended with shifting dullness, no guarding, no rebound or rigidity, Normoactive bowel sounds Skin: Normal temperature, tone, texture, turgor, No induration No subcutaneous nodules, No rash, lesions, No ulcers Extremities:No digital cyanosis No clubbing, Pedal pulses intact and symmetrical Radial pulses intact and symmetrical Normal gait and station, No calf tenderness Psychiatric: Alert and oriented to person, place and time, Appropriate affect Intact judgement Neuro: Muscles Strength 5/5 in all 4 extremities, Sensation to light touch grossly present throughout, Cranial nerves II-XII grossly intact. No focal sensory deficits - Labs CBC & Chem 7: 01/09/17 06:14 01/08/17 05:44 Labs: Abnormal Lab Results - Last 24 Hours (Table) 01/09/17 01/09/17 Range/Units 06:14 06:14 WBC 13.1 H (3.8-10.6) k/uL Hgb 11.1 L (11.4-16.0) gm/dL MCH 23.9 L (25.0-35.0) pg MCHC 29.1 L (31.0-37.0) g/dL RDW 18.5 H (11.5-15.5) % Neutrophils # 10.2 H (1.3-7.7) k/uL INR 1.2 H (<1.2) APTT 32.7 H (22.0-30.0) sec Microbiology - Last 24 Hours (Table) 01/07/17 22:28 Urine Culture - Final Urine,Voided 01/07/17 21:31 Blood Culture - Preliminary Blood No Growth after 24 hours Assessment and Plan (1) Dyspnea Narrative/Plan: * Multifactorial secondary to symptomatic ascites superimposed on underlying pleural effusion possibly malignant superimposed on underlying PE and COPD * Continue supplemental oxygen and Lasix for diuresis * Patient scheduled for paracentesis which will hopefully be therapeutic, we'll reassess the patient tomorrow and if improved send her home if not she'll probably need to have a thoracentesis Status: Acute (2) Coagulopathy Status: Acute (3) DVT, bilateral lower limbs Status: Acute (4) Metastatic adenocarcinoma Narrative/Plan: Appreciate oncology Dr. 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 Status: Acute (5) Pulmonary emboli Narrative/Plan: * Anticoagulation held we'll restart postprocedure * Repeat CT of the chest is showing gradually progressive decrease in the clot burden of note the patient does have IVC filter that was placed at [facility] Status: Acute (6) Ascites Narrative/Plan: * Patient is scheduled to have abdominal paracentesis by IR today Status: Acute
[2017-01-09] MEDS: HEPARIN SODIUM,PORCINE/D5W PMX 25,000 UNIT in DEXTROSE/WATER 1 500ML.BAG IV SCH (19:40)
--- NOTE | 2017-01-09 22:48 | US ---
EXAMINATION TYPE: US paracentesis abd w/image DATE OF EXAM: 01/09/2017 CLINICAL HISTORY: 51-year-old female with distended abdomen, trouble breathing, request for therapeu tic and diagnostic paracentesis. FINDINGS AND TECHNIQUE: The patient's INR was rechecked after vitamin K administration and I decreased from 1.9 to 1.2. The procedure was discussed with the patient. The risks, complications, benefits, and alternatives we re discussed and any questions were answered. Informed consent was obtained. The procedure was perfor med at the patient's bedside. Ultrasound directed marking was performed at the left lower quadrant. The patient was prepped and draped in the usual sterile fashion. All elements of maximal barrier technique were utilized. Utilizing a 6 [place] Safecentesis catheter, access into the left lower quadrant fluid collection was secured. Approximately 6 liters of straw-colored fluid was removed. The patient was stable throughout the proc edure and remained stable following completion of the procedure. A 60 ml sample was labeled by [facility] personnel and sent for requested laboratory analysis. Patient's condition was improved following the procedure. Catheter was removed, hemostasis obtained, and a bandage placed. IMPRESSION: Successful diagnostic and therapeutic paracentesis under ultrasound guidance. 6 L of normal straw-col ored fluid removed. Laboratory analysis pending.
[2017-01-10] MEDS: HYDROmorphone 1 MG/ML 1 ML SYRINGE IV PRN (00:23)
[2017-01-10] MEDS: ONDANSETRON 4 MG/2 ML VIAL IVP PRN ×4 (00:23→17:35)
[2017-01-10 03:01] LABS: Anisocytosis Slight; Basophils # (A) 0.1 k/uL (0-0.2); Basophils % (A) 1 %; CH 24.3; CHCM 29.4; Eosinophils # (A) 0.2 k/uL (0-0.7); Eosinophils % (A) 1 %; HCT 38.4 % (34.0-46.0); HDW 3.07; HGB 11.4 gm/dL (11.4-16.0); Hypochromasia Marked; Luc # (Auto) 0.17; Luc % (Auto) 1; Lymphocytes # (A) 0.8 k/uL (1.0-4.8); Lymphocytes % (A) 6 %; MCH 24.5 pg (25.0-35.0); MCHC 29.5 g/dL (31.0-37.0); MCV 82.7 fL (80.0-100.0); Mean Platelet Volume 7.6; Monocytes # (A) 0.6 k/uL (0-1.0); Monocytes % (A) 4 %; Neutrophils # (A) 11.2 k/uL (1.3-7.7); Neutrophils % (A) 86 %; RBC 4.64 m/uL (3.80-5.40); RDW 17.1 % (11.5-15.5); WBC (Perox) 12.93
[2017-01-10 03:26] LABS: INR 1.2 (<1.2)
[2017-01-10 03:27] LABS: Partial Thromboplastin Time 36.3 sec (22.0-30.0)
[2017-01-10] MEDS: FUROSEMIDE 10 MG/ML 4 ML VIAL IV SCH ×2 (08:37→22:51)
[2017-01-10] MEDS: FAMOTIDINE 20 MG TAB PO SCH ×2 (08:38→22:51)
--- NOTE | 2017-01-10 10:03 | XR ---
EXAMINATION TYPE: XR KUB , 2 VIEWS DATE OF EXAM ORDERED: 01/10/2017 HISTORY: nausea. COMPARISON: None. FINDINGS: There are bilateral pleural effusions and bibasilar atelectasis. There is an inferior vena cava filter in place. The abdominal gas pattern is within normal limits. There is no evidence of free fluid or free air. Th ere is a 10 mm amorphous calcification lateral to the right renal outline. This may represent a granu raysa.. IMPRESSION: 1. BILATERAL EFFUSIONS AND BIBASILAR AIRSPACE DISEASE. 2. NONOBSTRUCTIVE ABDOMINAL GAS PATTERN.
--- NOTE | 2017-01-10 10:10 | PN ---
PROGRESS NOTE DATE OF SERVICE: 01/10/17 INTERVAL HISTORY: The patient is a 51-year-old pleasant white female, admitted with shortness of breath, lower extremity swelling and bilateral DVT and PE, on anticoagulation. She was diagnosed with metastatic carcinoma involving the liver of unknown primary. She was admitted with new onset ascites with significant abdominal distention. She underwent large volume paracentesis yesterday and approximately 6 L of fluid was removed. The patient is feeling much better this morning. She has still has some nausea. No abdominal pain. Feels somewhat constipated. PHYSICAL EXAMINATION: Appears comfortable, in no apparent distress. VITAL SIGNS: Stable. Blood pressure is 107/80, pulse 87, temp is 97.2, HEENT examination unremarkable. Conjunctivae pink. Sclerae anicteric. Oral cavity not lesions. Neck: No jugular venous distention or lymph node enlargement. Chest: Clear to auscultation. HEART: Regular rate and rhythm. ABDOMEN: Soft, it was still slightly distended. Extremities 2+ pitting edema. Neurological: Alert and oriented times three. No focal deficits. LAB: WBC 13, hemoglobin 11.4, and platelets are normal. INR is 1.2. IMPRESSION: 1. Metastatic carcinoma to the liver of unknown primary. Dr. Bhat following the patient closely. 2. New onset ascites, most likely related to malignant ascites, she is status post large volume paracentesis yesterday for therapeutic purposes and she is feeling much better. RECOMMENDATIONS: 1. We will advance diet as tolerated. 2. We will sign off for now. 3. Please call us if needed. Thank you for this consultation. MMODL / IJN: [id number] /
[2017-01-10] MEDS: HEPARIN SODIUM,PORCINE/D5W PMX 25,000 UNIT in DEXTROSE/WATER 1 500ML.BAG IV SCH ×2 (10:41→14:39)
--- NOTE | 2017-01-10 10:47 | P.PN ---
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 She has noted marked improvement in abdominal discomfort. Shortness of breath is also improved, though partially Objective - Vital Signs Vital signs: Vital Signs Temp 96.3 F L 01/10/17 08:00 Pulse 90 01/10/17 08:00 Resp 16 01/10/17 08:00 BP 102/66 01/10/17 08:00 Pulse Ox 94 L 01/10/17 08:00 Intake & Output 01/09/17 01/10/17 01/10/17 18:59 06:59 18:59 Intake Total 475.43 986.72 120 Output Total 350 800 300 Balance 125.43 186.72 -180 Weight 74 kg Intake: IV 45 50 0.9@5mls/hr 45 50 Intake, IV Titration 430.43 216.72 Amount Heparin Sodium,Porcine/ 430.43 216.72 D5w Pmx 25,000 unit In Dextrose/Water 1 500ml. bag @ 18 UNITS/KG/HR 25.8 mls/hr IV .[id number] [facility] Rx#:[id number] Oral 720 120 Output: Urine 350 800 300 Other: Voiding Method Bedpan - Constitutional General appearance: Present: mild distress - EENT Eyes: Present: EOMI, PERRLA ENT: Present: hearing grossly normal, normal oropharynx - Respiratory Respiratory: bilateral: diminished (Right greater than left) - Cardiovascular Rhythm: regular Heart sounds: normal: S1, S2 - Gastrointestinal Gastrointestinal Comment(s): Positive ascites by exam, diminished General gastrointestinal: Present: distended, soft - Integumentary Integumentary: Present: normal - Neurologic Neurologic: Present: CNII-XII intact - Musculoskeletal Musculoskeletal Comment(s): Bilateral lower extremity swelling, right greater than left Musculoskeletal: Present: strength equal bilaterally - Psychiatric Psychiatric: Present: A&O x's 3, appropriate affect - Labs CBC & Chem 7: 01/10/17 02:14 01/08/17 05:44 Labs: Abnormal Lab Results - Last 24 Hours (Table) 01/10/17 01/10/17 Range/Units 02:14 02:14 WBC 13.0 H (3.8-10.6) k/uL MCH 24.5 L (25.0-35.0) pg MCHC 29.5 L (31.0-37.0) g/dL RDW 17.1 H (11.5-15.5) % Neutrophils # 11.2 H (1.3-7.7) k/uL Lymphocytes # 0.8 L (1.0-4.8) k/uL INR 1.2 H (<1.2) APTT 36.3 H (22.0-30.0) sec Microbiology - Last 24 Hours (Table) 01/07/17 21:31 Blood Culture - Preliminary Blood No Growth after 48 hours 01/07/17 22:28 Urine Culture - Final Urine,Voided Assessment and Plan (1) Dyspnea Narrative/Plan: This was clinically felt to be due to massive ascites, as well as pleural effusions. As noted in the initial consult, CT scans just prior to admission and actually shown decrease in clot burden in the lungs. The patient has experienced significant relief after paracentesis were still remains somewhat short of breath. In this case it would be reasonable to evaluate her for thoracentesis. Will consult pulmonary medicine for the same Status: Acute (2) Ascites Narrative/Plan: Status post 6 L paracentesis, with improvement in symptoms. Cytology is pending. Status: Acute (3) Pulmonary emboli Narrative/Plan: Continue IV heparin, till invasive procedures are completed. She can then be placed back on Xarelto Status: Acute (4) Metastatic adenocarcinoma Narrative/Plan: The diagnosis was discussed with the patient. She had previously indicated that she had cervix cancer. She was advised that her pathology report had shown only atypical cells in the cervix whereas the liver biopsy at confirmed metastatic adenocarcinoma most consistent with upper GI or pancreatobiliary origin. Based on the high CA 19-9 level, pancreaticobiliary origin is felt to be more likely. She was advise, that she has stage IV malignancy which is not curable. The mainstay of treatment is systemic chemotherapy, with an objective of prolongation of life and palliation of symptoms. She will follow-up in the office with Dr. De La Vega to discuss systemic treatment options Status: Acute (5) Coagulopathy Status: Acute
--- NOTE | 2017-01-10 11:43 | P.PN ---
Subjective Progress Note Date: 01/10/17 Principal diagnosis: The patient is a 51-year-old lady, with the complicated recent past medical history. She had presented to [facility] with increasing shortness of breath and lower extremity swelling, in late 11/12. She was found to have bilateral PE and DVT. Imaging at that time also revealed evidence of lesions in the liver suggestive of metastasis. She underwent a liver biopsy on 11/24/16. Tumor markers revealed markedly elevated CA 19-9[place] [address]. CEA was also elevated at 2720, with the CT a 125 increased to a much lesser extent at 198. AFP was normal at 2.3. Biopsy came back positive for moderately differentiated adenocarcinoma, most consistent with upper GI/ pancreatobiliary primary though lung was not totally ruled out. Around this time the patient apparently had a Pap smear that showed some atypical squamous cells but no definite evidence of malignancy. During that admission, the patient also had an IVC filter placed and discharged home and Xarelto, she was transferred here from [place] for progressive worsening dyspnea previous CT done there was consistent with a moderate amount of ascites Today patient is feeling pretty fatigued and tired denies any lightheadedness report some weakness, reports improvement in her shortness of breath. having some episodes of intractable nausea has had some vomiting and reports improvement of her belly pain since having her 6 L abdominal paracentesis yesterday also complains of some lightheadedness and feeling unsteady on her legs, No acute events overnight Objective - Vital Signs Vital signs: Vital Signs Temp 96.3 F L 01/10/17 08:00 Pulse 90 01/10/17 08:00 Resp 16 01/10/17 08:00 BP 102/66 01/10/17 08:00 Pulse Ox 94 L 01/10/17 08:00 Intake & Output 01/09/17 01/10/17 01/10/17 18:59 06:59 18:59 Intake Total 475.43 986.72 120 Output Total 350 800 300 Balance 125.43 186.72 -180 Weight 74 kg Intake: IV 45 50 0.9@5mls/hr 45 50 Intake, IV Titration 430.43 216.72 Amount Heparin Sodium,Porcine/ 430.43 216.72 D5w Pmx 25,000 unit In Dextrose/Water 1 500ml. bag @ 18 UNITS/KG/HR 25.8 mls/hr IV .[id number] [facility] Rx#:[id number] Oral 720 120 Output: Urine 350 800 300 Other: Voiding Method Bedpan - Exam Constitutional: No acute distress, conversant, pleasant Eyes: Anicteric sclerae, moist conjunctiva, no lid-lag, PERRLA ENMT: NC/AT,Oropharynx clear, no erythema, exudates Neck:Supple, FROM, no masses, or JVD, No carotid bruits; No thyromegaly Lungs: Clear to auscultation but diminished in the bases bilaterally, Clear to percussion, Normal respiratory effort, no accessory muscle use Cardiovascular: Heart regular in rate and rhythm, No murmurs, gallops, or rubs no peripheral edema Abdominal: Soft Nontender, improving distention with shifting dullness, no guarding, no rebound or rigidity, Normoactive bowel sounds Skin: Normal temperature, tone, texture, turgor, No induration No subcutaneous nodules, No rash, lesions, No ulcers Extremities:No digital cyanosis No clubbing, Pedal pulses intact and symmetrical Radial pulses intact and symmetrical Normal gait and station, No calf tenderness Psychiatric: Alert and oriented to person, place and time, Appropriate affect Intact judgement Neuro: Muscles Strength 5/5 in all 4 extremities, Sensation to light touch grossly present throughout, Cranial nerves II-XII grossly intact. No focal sensory deficits - Labs CBC & Chem 7: 01/10/17 02:14 01/08/17 05:44 Labs: Abnormal Lab Results - Last 24 Hours (Table) 01/10/17 01/10/17 Range/Units 02:14 02:14 WBC 13.0 H (3.8-10.6) k/uL MCH 24.5 L (25.0-35.0) pg MCHC 29.5 L (31.0-37.0) g/dL RDW 17.1 H (11.5-15.5) % Neutrophils # 11.2 H (1.3-7.7) k/uL Lymphocytes # 0.8 L (1.0-4.8) k/uL INR 1.2 H (<1.2) APTT 36.3 H (22.0-30.0) sec Microbiology - Last 24 Hours (Table) 01/07/17 21:31 Blood Culture - Preliminary Blood No Growth after 48 hours 01/07/17 22:28 Urine Culture - Final Urine,Voided Assessment and Plan (1) Dyspnea Narrative/Plan: * Multifactorial secondary to symptomatic ascites superimposed on underlying pleural effusion possibly malignant superimposed on underlying PE and COPD * Continue supplemental oxygen and Lasix for diuresis * much improved post 6 L paracentesis, agree with consult to pulmonary for possible thoracentesis Status: Acute (2) Coagulopathy Status: Acute (3) DVT, bilateral lower limbs Status: Acute (4) Metastatic adenocarcinoma Narrative/Plan: Appreciate oncology Dr. 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 Status: Acute (5) Pulmonary emboli Narrative/Plan: * Anticoagulation held we'll restart postprocedure * Repeat CT of the chest is showing gradually progressive decrease in the clot burden of note the patient does have IVC filter that was placed at [facility] Status: Acute (6) Ascites Narrative/Plan: * patient had large volume 6 L abdominal paracentesis yesterday, cytology pending * Clearly less symptomatic than she was yesterday Status: Acute Plan: patient doing well post-paracentesis pulmonary consulted, will order KUB for intractable nausea and vomiting, will consult PTOT and continue to follow her clinical course
[2017-01-10] MEDS: HYDROcodone/APAP 5-325MG 1 EACH TAB PO PRN ×2 (13:17→23:05)
--- NOTE | 2017-01-10 15:34 | P.CNPUL ---
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 I was asked to evaluate this patient shortness of breath. The patient is a very complex medical history. She initially presented to [facility] with increasing shortness of breath and lower extremity swelling, in late 11/12. She was found to have bilateral PE and DVT. At that time the patient was also given an IVC filter and placed on anticoagulation. However, imaging at that time also revealed evidence of lesions in the liver suggestive of metastasis. She underwent a liver biopsy on 11/24/16. Tumor markers revealed markedly elevated [place] 19-9[place] [address]. CEA was also elevated at 2720, with the CT a 125 increased to a much lesser extent at 198. AFP was normal at 2.3. Biopsy came back positive for moderately differentiated adenocarcinoma, most consistent with upper GI/pancreatobiliary primary though lung was not totally ruled out. Around this time the patient apparently had a Pap smear that showed some atypical squamous cells but no definite evidence of malignancy. During that admission, the patient also had an IVC filter placed. At the time of discharge, the patient was prescribed Xarelto, but apparently was not taking it regularly, due to coverage issues. Chest x-ray on 11/18/16 had shown bibasilar infiltrates and pleural effusions. CT chest abdomen and pelvis on 11/19/16 had revealed bilateral pulmonary emboli involving upper, middle and lower lobe branches. There was a small pleural effusion on the left side as well as a small speculated subpleural nodule in the left chest measuring 0.8 cm. There was also a 5 mm nodule in the right lung base. The CT of the abdomen had shown diffusely enlarged liver, nearly 20 cm, with multiple ill-defined hypodense lesions throughout consistent with metastasis, largest in the left lobe measuring 4.4 cm and the largest in the right measuring 4.6 cm. The spleen had also shown innumerable variable size fluid attenuation nodules largest anteriorly measuring 3.1 cm. Pancreatic and adrenal glands were negative. There was extensive mesenteric hyperdensity in the left anterior upper abdomen highly suggestive of peritoneal/omental metastatic deposits. Enlarged lymph nodes were noted in the left iliac and femoral regions. CT pelvis showed a moderate amount of ascites. Lower extremity Doppler had shown bilateral DVT, more extensive on the left compared to the right The patient went to the emergency room at [facility], on 12/31/16 complaining of some abdominal distention. She then came back to the ER at [facility] on 01/07/17, complaining of progressive shortness of breath as well as abdominal distention over the past few days. She had a repeat CTA done, which now showed progression of pleural effusions greater on the right than the left. Bilateral PE again noted, with decrease in clot burden. Compared to prior computed tomography scan done on 11/18/16 there appeared to be progression of disease in the liver. The patient was thus transferred here, for further management. The patient underwent a large volume paracentesis yesterday that was done by interventional radiology. A total of 6 L of fluid was removed and on today's evaluation the patient is already feeling better and she is less short of breath. I reviewed the CTA of the chest and I think there is small to moderate-sized bilateral pleural effusion which could be potentially malignant at this stage. Clinically the patient is doing well. She is in oxygen at 3 L/m nasal cannula. Lower extremities are swollen and the patient has been confirmed to have bilateral DVTs based on recent Doppler of the lower extremities was done on 01/07/2017. She is currently on IV heparin. No other oral anticoagulants for now. She is hemodynamically stable. Oncology is on the case. No hemoptysis. No pleurisy. No other complaints otherwise. Her shortness of breath significantly improved following the paracentesis Review of Systems Constitutional: Reports fatigue, Reports poor appetite, Reports weakness, Reports weight loss Eyes: denies blurred vision, denies bulging eye, denies decreased vision Ears: deny: decreased hearing, ear discharge, earache Ears, nose, mouth and throat: Denies headache, Denies sore throat Cardiovascular: Reports decreased exercise tolerance, Reports dyspnea on exertion, Reports edema, Reports leg edema, Reports shortness of breath Respiratory: Reports dyspnea Gastrointestinal: Reports as per HPI, Reports bloating, Reports nausea Genitourinary: Denies dysuria, Denies hematuria Musculoskeletal: Denies myalgias Musculoskeletal: bilateral: ankle swelling, absent: ankle pain, ankle stiffness Integumentary: Denies pruritus, Denies rash Neurological: Denies numbness, Denies weakness Psychiatric: Denies anxiety, Denies depression Endocrine: Denies fatigue, Denies weight change 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, ascites and [place] pleural effusions, bilateral lower extremity DVT, pulmonary embolism, lower extremity edema, ascites, atypical cells from cervical evaluation without indication of cervical cancer History of Any Multi-Drug Resistant Organisms: None Reported Additional Past Surgical History / Comment(s): liver biopsy, history of cervical procedures for atypical cervical cells Past Anesthesia/Blood Transfusion Reactions: No Reported Reaction Past Psychological History: Anxiety Smoking Status: Current some day smoker Past Alcohol Use History: None Reported Past Drug Use History: None Reported - Past Family History Father History Unknown: Yes Family Medical History: Cancer, Hypertension Additional Family Medical History / Comment(s): after cancer went to brain Mother History Unknown: Yes Family Medical History: Coronary Artery Disease (CAD), Hyperlipidemia, Hypertension, Myocardial Infarction (PR) Additional Family Medical History / Comment(s): heart caths with stents Medications and Allergies Home Medications Medication Instructions Recorded Confirmed Type Hydrocodone/Acetaminophen [[place] 1 tab PO Q6HR PRN 01/07/17 01/07/17 History 5-325] Ranitidine HCl [Zantac] 150 mg PO BID 01/07/17 01/07/17 History Rivaroxaban [Xarelto Starter Pack] 1 tab PO DIRECTED 01/07/17 01/07/17 History Rizatriptan Benzoate [Rizatriptan] 10 mg PO DAILY PRN 01/07/17 01/07/17 History diphenhydrAMINE HCL [Benadryl] 25 mg PO HS PRN 01/07/17 01/07/17 History Allergies Allergy/AdvReac Type Severity Reaction Status Date / Time Penicillins Allergy Swelling Verified 01/07/17 22:20 Physical Exam Vitals: Vital Signs Temp Pulse Resp BP Pulse Ox 01/10/17 12:00 96.4 F L 86 16 95/72 95 01/10/17 08:00 96.3 F L 90 16 102/66 94 L 01/10/17 03:19 97.2 F L 87 17 107/80 94 L 01/10/17 00:00 97 F L 93 16 97/68 94 L 01/09/17 20:00 97 F L 82 16 97/70 95 01/09/17 16:00 84 16 94/69 93 L Intake and Output 01/10/17 01/10/17 01/10/17 06:59 14:59 22:59 Intake Total 851.67 658.33 Output Total 300 700 Balance 551.67 -41.67 Intake: IV 50 0.9@5mls/hr 50 Intake, IV Titration 201.67 298.33 Amount Heparin Sodium,Porcine/ 201.67 298.33 D5w Pmx 25,000 unit In Dextrose/Water 1 500ml. bag @ 18 UNITS/KG/HR 25.8 mls/hr IV .[id number] NORMA Rx#:[id number] Oral 600 360 Output: Urine 300 700 Other: # Bowel Movements 1 Weight 74 kg Head exam was generally normal. There was no scleral icterus or corneal arcus. Mucous membranes were moist.Neck was supple and without jugular venous distension, thyromegaly, or carotid bruits. Carotids were easily palpable bilaterally. There was no adenopathy. Lung sounds are diminished bilaterally especially in the lung bases along with dullness to percussionCardiac exam revealed the PMI to be normally situated and sized. The rhythm was regular and no extrasystoles were noted during several minutes of auscultation. The first and second heart sounds were normal and physiologic splitting of the second heart sound was noted. There were no murmurs, rubs, clicks, or gallops. Abdomen is positive for ascites with shifting wave and dullness. No direct tenderness rebound tenderness or guarding. Extremities are swollen bilaterally and there is diminished pulses no open wounds or ulcers. Neurologically the patient is awake 3 and there is no focal neurological deficit.Examination of the skin revealed no evidence of significant rashes, suspicious appearing nevi or other concerning lesions. Skeletal examination shows no active arthritis or joint deformities. Results - Laboratory Findings CBC and BMP: 01/10/17 02:14 01/08/17 05:44 PT/INR, D-dimer PT 12.0 sec (9.0-12.0) 01/10/17 02:14 INR 1.2 (<1.2) H 01/10/17 02:14 Abnormal lab findings: Abnormal Labs 01/07/17 01/07/17 01/07/17 21:31 21:31 21:31 WBC 13.4 H Hgb MCH 24.7 L MCHC 30.0 L RDW 18.3 H Neutrophils # 11.4 H Lymphocytes # PT 18.5 H INR 1.9 H APTT 41.5 H Sodium 136 L Chloride 96 L Glucose 107 H Alkaline Phosphatase 290 H Total Protein Albumin Urine Appearance Ur Specific [place] Urine Protein Urine Ketones Urine Bilirubin Urine WBC Ur Squamous Epith Cells Urine Mucus 01/07/17 01/08/17 01/08/17 22:28 05:44 05:44 WBC 13.1 H Hgb 10.6 L MCH 24.5 L MCHC 29.6 L RDW 17.7 H Neutrophils # 10.6 H Lymphocytes # PT INR APTT 59.2 H Sodium Chloride Glucose Alkaline Phosphatase Total Protein Albumin Urine Appearance Cloudy H Ur Specific [place] >1.050 H Urine Protein 1+ H Urine Ketones Trace H Urine Bilirubin 1+ H Urine WBC 6 H Ur Squamous Epith Cells 13 H Urine Mucus Few H 01/08/17 01/09/17 01/09/17 05:44 06:14 06:14 WBC 13.1 H Hgb 11.1 L MCH 23.9 L MCHC 29.1 L RDW 18.5 H Neutrophils # 10.2 H Lymphocytes # PT INR 1.2 H APTT 32.7 H Sodium Chloride 97 L Glucose 100 H Alkaline Phosphatase 220 H Total Protein 6.0 L Albumin 2.8 L Urine Appearance Ur Specific [place] Urine Protein Urine Ketones Urine Bilirubin Urine WBC Ur Squamous Epith Cells Urine Mucus 01/10/17 01/10/17 01/10/17 02:14 02:14 12:30 WBC 13.0 H Hgb MCH 24.5 L MCHC 29.5 L RDW 17.1 H Neutrophils # 11.2 H Lymphocytes # 0.8 L PT INR 1.2 H APTT 36.3 H 37.3 H Sodium Chloride Glucose Alkaline Phosphatase Total Protein Albumin Urine Appearance Ur Specific [place] Urine Protein Urine Ketones Urine Bilirubin Urine WBC Ur Squamous Epith Cells Urine Mucus Assessment and Plan Plan: Assessment 1 metastatic stage IV cancer of a gastrointestinal/biliary in origin with secondary omental involvement and ascites and hepatic metastases. There may be also possibly pulmonary metastases knowing that the patient has multiple pulmonary nodules that are subcentimeter scattered throughout the lungs and the patient has also developed bilateral pleural effusions. Possibly malignant pleural effusions. A Biopsy of the liver has shown metastatic adenocarcinoma. The patient has an elevated CA-19-9 level. This is likely a metastatic adenocarcinoma of a biliary origin 2 pulmonary embolism, bilateral, initially diagnosed in October 2016 and the patient has an IVC filter in place. Patient was prescribed Xarelto for pulmonary embolism 3 bilateral lower extremity DVT 4 bilateral lower extremity edema 5 shortness of breath due to massive ascites, bilateral pleural effusion and pulmonary embolism. 6 acute hypoxic arrest 30 failure secondary to above and the patient is currently on oxygen at 2 L/m nasal cannula 7 cervical dysplasia Plan The patient will be kept on IV heparin. Will be glad to consider a thoracentesis on this patient, bilateral, the patient's shortness of breath does not improve much following the large volume paracentesis. We will obtain ultrasound marking of the chest bilaterally and we will proceed with sequential thoracentesis based on the ultrasound markings in the findings. Meanwhile, the patient will be kept on IV Lasix. Did not commit to long-acting oral anticoagulation such as Xarelto till the patient has been adequately drained in the fluid balance is well optimized. Prognosis obviously is poor baseline above -mentioned metastatic disease.
--- NOTE | 2017-01-10 17:18 | US ---
EXAMINATION TYPE: US chest DATE OF EXAM: 01/10/2017 COMPARISON: Chest x-ray from 2 days ago CLINICAL HISTORY: with markings of pleural effusions. EXAM MEASUREMENTS: Right Pleural Effusion fluid pocket: 9.0 cm Right skin to fluid thickness: 1.4 cm Left Pleural Effusion fluid pocket: not saved Left skin to fluid thickness: not saved Right side marked for possible thoracentesis outside the dept. Left side marked for possible thoracentesis outside the dept. Pulmonologists are able to review the images in the patient?s EMR. Small to moderate-sized right slightly greater than left pleural effusions are confirmed on images sa saima in correlate with recent x-ray IMPRESSIONS: As above
[2017-01-11] MEDS: HEPARIN SODIUM,PORCINE/D5W PMX 25,000 UNIT in DEXTROSE/WATER 1 500ML.BAG IV SCH (03:28)
[2017-01-11 06:03] LABS: Anisocytosis Slight; Basophils # (A) 0.1 k/uL (0-0.2); Basophils % (A) 1 %; CH 24.2; CHCM 29.6; Eosinophils # (A) 0.3 k/uL (0-0.7); Eosinophils % (A) 3 %; HCT 38.5 % (34.0-46.0); HDW 3.16; HGB 11.1 gm/dL (11.4-16.0); Hypochromasia Marked; Luc # (Auto) 0.21; Luc % (Auto) 2; Lymphocytes # (A) 1.1 k/uL (1.0-4.8); Lymphocytes % (A) 10 %; MCH 23.7 pg (25.0-35.0); MCHC 28.9 g/dL (31.0-37.0); Mean Platelet Volume 6.5; Monocytes # (A) 0.6 k/uL (0-1.0); Monocytes % (A) 5 %; Neutrophils % (A) 80 %; RBC 4.69 m/uL (3.80-5.40); RDW 17.1 % (11.5-15.5); WBC 11.3 k/uL (3.8-10.6); WBC (Perox) 11.25
[2017-01-11 06:16] LABS: INR 1.3 (<1.2); Partial Thromboplastin Time 54.2 sec (22.0-30.0); Prothrombin Time 12.5 sec (9.0-12.0)
[2017-01-11] MEDS: FUROSEMIDE 10 MG/ML 4 ML VIAL IV SCH ×2 (09:54→19:58)
[2017-01-11] MEDS: FAMOTIDINE 20 MG TAB PO SCH ×2 (09:54→19:58)
--- NOTE | 2017-01-11 11:03 | P.PN ---
Subjective Progress Note Date: 01/11/17 Principal diagnosis: Dyspnea This is a 51 year old unfortunate female with history of metastatic adenocarcinoma. The liver metastasis with proven by liver biopsy on 2016. Patient also with known history of pulmonary embolism for which she was discharged home on xarelto. Now patient presented with complaints of abdominal distention to [facility]. And on January 07 presented with some shortness of breath. Computed tomography scan showing progression of her pleural effusions. With the bilateral PE. Here patient has already underwent paracentesis. 6 L of fluid out. She is feeling better no abdominal pain no fever no chills. Objective - Vital Signs Vital signs: Vital Signs Temp 96.8 F L 01/11/17 08:00 Pulse 89 01/11/17 08:00 Resp 18 01/11/17 08:00 BP 100/69 01/11/17 08:00 Pulse Ox 92 L 01/11/17 08:00 Intake & Output 01/10/17 01/11/17 01/11/17 18:59 06:59 18:59 Intake Total 778.33 574.282 120 Output Total 900 2450 Balance -121.67 -1875.718 120 Weight 71.8 kg Intake: Intake, IV Titration 298.33 574.282 Amount Heparin Sodium,Porcine/ 298.33 574.282 D5w Pmx 25,000 unit In Dextrose/Water 1 500ml. bag @ 18 UNITS/KG/HR 25.8 mls/hr IV .[id number] NORMA Rx#:[id number] Oral 480 120 Output: Urine 900 1850 Stool 600 Other: Voiding Method Toilet # Voids 2 0 # Bowel Movements 1 1 - Exam gen:alert and oriented lungs: Diminished to auscultation. No wheezes heart:s1s2 abdomen:soft and depressible,non tender ext:no edema - Labs CBC & Chem 7: 01/11/17 05:34 01/08/17 05:44 Labs: Abnormal Lab Results - Last 24 Hours (Table) 01/10/17 01/10/17 01/11/17 Range/Units 12:30 19:08 05:34 WBC 11.3 H (3.8-10.6) k/uL Hgb 11.1 L (11.4-16.0) gm/dL MCH 23.7 L (25.0-35.0) pg MCHC 28.9 L (31.0-37.0) g/dL RDW 17.1 H (11.5-15.5) % Neutrophils # 9.0 H (1.3-7.7) k/uL PT (9.0-12.0) sec INR (<1.2) APTT 37.3 H 84.2 H (22.0-30.0) sec 01/11/17 Range/Units 05:34 WBC (3.8-10.6) k/uL Hgb (11.4-16.0) gm/dL MCH (25.0-35.0) pg MCHC (31.0-37.0) g/dL RDW (11.5-15.5) % Neutrophils # (1.3-7.7) k/uL PT 12.5 H (9.0-12.0) sec INR 1.3 H (<1.2) APTT 54.2 H (22.0-30.0) sec Microbiology - Last 24 Hours (Table) 01/07/17 21:31 Blood Culture - Preliminary Blood No Growth after 72 hours Assessment and Plan (1) Dyspnea Narrative/Plan: Starting to feel better now. Dr. Jack to evaluate for need for thoracentesis going to have a repeat chest x-ray. Status: Acute (2) Ascites Narrative/Plan: Status post paracentesis of 6 L Status: Acute (3) DVT, bilateral lower limbs Narrative/Plan: On heparin drip Status: Acute (4) Pulmonary emboli Narrative/Plan: On heparin drip Status: Acute (5) Metastatic adenocarcinoma Narrative/Plan: Patient with stage IV adenocarcinoma. Treatment at this point is palliative. Status: Acute Plan: We will await pulmonary plans at this time. To see if thoracentesis is indicated. Plan for treatment is outpatient therapy for palliative chemo
--- NOTE | 2017-01-11 11:45 | XR ---
EXAMINATION TYPE: XR chest 1V portable DATE OF EXAM: 01/11/2017 COMPARISON: NONE HISTORY: Pleural effusion TECHNIQUE: Single frontal view of the chest is obtained. FINDINGS: Bilateral lower lobe consolidation and small effusion. Heart size at the upper limits of n ormal. No pneumothorax. IMPRESSION: Bilateral infiltrate and small pleural effusion.
--- NOTE | 2017-01-11 12:47 | P.PN ---
Subjective Progress Note Date: 01/11/17 Principal diagnosis: Malignant ascites and pleural effusion. 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 I was asked to evaluate this patient shortness of breath. The patient is a very complex medical history. She initially presented to [facility] with increasing shortness of breath and lower extremity swelling, in late 11/12. She was found to have bilateral PE and DVT. At that time the patient was also given an IVC filter and placed on anticoagulation. However, imaging at that time also revealed evidence of lesions in the liver suggestive of metastasis. She underwent a liver biopsy on 11/24/16. Tumor markers revealed markedly elevated CA 19-9[place] [address]. CEA was also elevated at 2720, with the CT a 125 increased to a much lesser extent at 198. AFP was normal at 2.3. Biopsy came back positive for moderately differentiated adenocarcinoma, most consistent with upper GI/pancreatobiliary primary though lung was not totally ruled out. Around this time the patient apparently had a Pap smear that showed some atypical squamous cells but no definite evidence of malignancy. During that admission, the patient also had an IVC filter placed. At the time of discharge, the patient was prescribed Xarelto, but apparently was not taking it regularly, due to coverage issues. Chest x-ray on 11/18/16 had shown bibasilar infiltrates and pleural effusions. CT chest abdomen and pelvis on 11/19/16 had revealed bilateral pulmonary emboli involving upper, middle and lower lobe branches. There was a small pleural effusion on the left side as well as a small speculated subpleural nodule in the left chest measuring 0.8 cm. There was also a 5 mm nodule in the right lung base. The CT of the abdomen had shown diffusely enlarged liver, nearly 20 cm, with multiple ill-defined hypodense lesions throughout consistent with metastasis, largest in the left lobe measuring 4.4 cm and the largest in the right measuring 4.6 cm. The spleen had also shown innumerable variable size fluid attenuation nodules largest anteriorly measuring 3.1 cm. Pancreatic and adrenal glands were negative. There was extensive mesenteric hyperdensity in the left anterior upper abdomen highly suggestive of peritoneal/omental metastatic deposits. Enlarged lymph nodes were noted in the left iliac and femoral regions. CT pelvis showed a moderate amount of ascites. Lower extremity Doppler had shown bilateral DVT, more extensive on the left compared to the right The patient went to the emergency room at [facility], on 12/31/16 complaining of some abdominal distention. She then came back to the ER at [facility] on 01/07/17, complaining of progressive shortness of breath as well as abdominal distention over the past few days. She had a repeat CTA done, which now showed progression of pleural effusions greater on the right than the left. Bilateral PE again noted, with decrease in clot burden. Compared to prior computed tomography scan done on 11/18/16 there appeared to be progression of disease in the liver. The patient was thus transferred here, for further management. The patient underwent a large volume paracentesis yesterday that was done by interventional radiology. A total of 6 L of fluid was removed and on today's evaluation the patient is already feeling better and she is less short of breath. I reviewed the CTA of the chest and I think there is small to moderate-sized bilateral pleural effusion which could be potentially malignant at this stage. Clinically the patient is doing well. She is in oxygen at 3 L/m nasal cannula. Lower extremities are swollen and the patient has been confirmed to have bilateral DVTs based on recent Doppler of the lower extremities was done on 01/07/2017. She is currently on IV heparin. No other oral anticoagulants for now. She is hemodynamically stable. Oncology is on the case. No hemoptysis. No pleurisy. No other complaints otherwise. Her shortness of breath significantly improved following the paracentesis Patient was reevaluated today on 01/11/2017, doing well, relatively asymptomatic , had paracentesis done and total of 6 L of fluid were removed, noticed no significant change in her right pleural effusion. Patient is now on IV heparin , may consider holding the heparin tomorrow and performing a right-sided thoracentesis however before doing that I would like to have a repeat chest x- ray in a.m. I reviewed the results of the ultrasound of the chest, and I plan to most likely perform a right-sided thoracentesis on the patient tomorrow hoping to expand her right lung further. Patient is not in any form of respiratory distress, she is being followed by oncology, and she will eventually need to have outpatient follow-up with oncology for chemotherapy. Apparently she already had a tissue diagnosis showing moderately differentiated adenocarcinoma consistent with upper GI/pancreatobiliary primary. Objective - Vital Signs Vital signs: Vital Signs Temp 96.8 F L 01/11/17 08:00 Pulse 89 01/11/17 08:00 Resp 18 01/11/17 08:00 BP 100/69 01/11/17 08:00 Pulse Ox 92 L 01/11/17 08:00 Intake & Output 01/10/17 01/11/17 01/11/17 18:59 06:59 18:59 Intake Total 778.33 574.282 120 Output Total 900 2450 400 Balance -121.67 -1875.718 -280 Weight 71.8 kg Intake: Intake, IV Titration 298.33 574.282 Amount Heparin Sodium,Porcine/ 298.33 574.282 D5w Pmx 25,000 unit In Dextrose/Water 1 500ml. bag @ 18 UNITS/KG/HR 25.8 mls/hr IV .[id number] [facility] Rx#:[id number] Oral 480 120 Output: Urine 900 1850 400 Stool 600 Other: Voiding Method Toilet # Voids 2 0 # Bowel Movements 1 1 - Exam Physical Exam: Revealed a 51-year-old female in no distress. Head: Normocephalic, atraumatic. PERRLA, EOMI. HEENT:[Neck is supple.] [No neck masses.] [No thyromegaly.] [No JVD.] Chest: [Clear throughout, no crackles, no rhonchi, no wheezes.] Cardiac Exam: [Normal S1 and S2, no S3 gallop, no murmur.] Abdomen: [Soft, nontender, positive ascites, no rebound, no guarding. Positive shifting wave and dullness. Extremities: [No clubbing, no edema, no cyanosis.] Neurological Exam: [No focal neurologic deficit. Musculoskeletal normal range of motion, and no weakness. Skin: No rashes, no ulcerations Psychiatric: Normal mood and affect, no evidence of anxiety, and no symptoms to suggest depression. Normal mental status exam.] - Labs CBC & Chem 7: 01/11/17 05:34 01/08/17 05:44 Labs: Abnormal Lab Results - Last 24 Hours (Table) 01/10/17 01/10/1717 Range/Units 12:30 19:08 05:34 WBC 11.3 H (3.8-10.6) k/uL Hgb 11.1 L (11.4-16.0) gm/dL MCH 23.7 L (25.0-35.0) pg MCHC 28.9 L (31.0-37.0) g/dL RDW 17.1 H (11.5-15.5) % Neutrophils # 9.0 H (1.3-7.7) k/uL PT (9.0-12.0) sec INR (<1.2) APTT 37.3 H 84.2 H (22.0-30.0) sec 01/11/17 Range/Units 05:34 WBC (3.8-10.6) k/uL Hgb (11.4-16.0) gm/dL MCH (25.0-35.0) pg MCHC (31.0-37.0) g/dL RDW (11.5-15.5) % Neutrophils # (1.3-7.7) k/uL PT 12.5 H (9.0-12.0) sec INR 1.3 H (<1.2) APTT 54.2 H (22.0-30.0) sec Microbiology - Last 24 Hours (Table) 01/07/17 21:31 Blood Culture - Preliminary Blood No Growth after 72 hours Assessment and Plan Plan: 1 metastatic stage IV cancer of a gastrointestinal/biliary in origin with secondary omental involvement and ascites and hepatic metastases. There may be also possibly pulmonary metastases knowing that the patient has multiple pulmonary nodules that are subcentimeter scattered throughout the lungs and the patient has also developed bilateral pleural effusions. Possibly malignant pleural effusions. A Biopsy of the liver has shown metastatic adenocarcinoma. The patient has an elevated CA-19-9 level. This is likely a metastatic adenocarcinoma of a biliary origin 2 pulmonary embolism, bilateral, initially diagnosed in October 2016 and the patient has an IVC filter in place. Patient was prescribed Xarelto for pulmonary embolism 3 bilateral lower extremity DVT 4 bilateral lower extremity edema 5 shortness of breath due to massive ascites, bilateral pleural effusion and pulmonary embolism. 6 acute hypoxic arrest 30 failure secondary to above and the patient is currently on oxygen at 2 L/m nasal cannula 7 cervical dysplasia Recommendation: Continue IV heparin for now, reviewed the chest x-ray from today , reviewed the ultrasound which was done recently, we'll likely proceed with a right-sided thoracentesis after holding heparin for a couple of hours tomorrow. We'll continue to follow. Prognosis is definitely poor and guarded, patient could be discharged home possibly tomorrow and follow up on outpatient basis with oncology. Time with Patient: Less than 30
[2017-01-11] MEDS ORDERED: ALPRAZolam 0.25 MG TAB PO PRN (18:28)
[2017-01-11 21:34] VITALS: RESP 18; TEMP 97.5
[2017-01-12 07:35] VITALS: BP 105/69; PULSE 86
[2017-01-12] MEDS: FAMOTIDINE 20 MG TAB PO SCH (07:46)
[2017-01-12] MEDS: FUROSEMIDE 10 MG/ML 4 ML VIAL IV SCH (07:46)
[2017-01-12] MEDS: HYDROcodone/APAP 5-325MG 1 EACH TAB PO PRN (07:51)
[2017-01-12 08:17] LABS: Anisocytosis Slight; Basophils # (A) 0.1 k/uL (0-0.2); Basophils % (A) 1 %; CH 24.5; CHCM 29.7; Eosinophils # (A) 0.2 k/uL (0-0.7); Eosinophils % (A) 2 %; HCT 39.4 % (34.0-46.0); HDW 3.13; HGB 11.6 gm/dL (11.4-16.0); Hypochromasia Marked; Luc # (Auto) 0.16; Luc % (Auto) 2; Lymphocytes # (A) 0.9 k/uL (1.0-4.8); Lymphocytes % (A) 9 %; MCH 24.2 pg (25.0-35.0); MCHC 29.3 g/dL (31.0-37.0); MCV 82.7 fL (80.0-100.0); Mean Platelet Volume 6.7; Monocytes # (A) 0.5 k/uL (0-1.0); Monocytes % (A) 5 %; Neutrophils # (A) 8.3 k/uL (1.3-7.7); Neutrophils % (A) 82 %; RBC 4.77 m/uL (3.80-5.40); RDW 17.6 % (11.5-15.5); WBC 10.2 k/uL (3.8-10.6); WBC (Perox) 10.77
[2017-01-12 08:24] LABS: INR 1.3 (<1.2); Partial Thromboplastin Time 50.3 sec (22.0-30.0); Prothrombin Time 12.4 sec (9.0-12.0)
--- NOTE | 2017-01-12 09:18 | P.PN ---
Subjective Progress Note Date: 01/12/17 Principal diagnosis: Dyspnea This is a 51 year old unfortunate female with history of metastatic adenocarcinoma. The liver metastasis with proven by liver biopsy on 2016. Patient also with known history of pulmonary embolism for which she was discharged home on xarelto. Now patient presented with complaints of abdominal distention to [facility]. And on January 07 presented with some shortness of breath. Computed tomography scan showing progression of her pleural effusions. With the bilateral PE. Here patient has already underwent paracentesis. 6 L of fluid out. Today patient says she is complaining of some abdominal pain. Denies any shortness of breath. No fever no cough. Objective - Vital Signs Vital signs: Vital Signs Temp 97.5 F L 01/12/17 07:00 Pulse 86 01/12/17 07:55 Resp 18 01/12/17 07:55 BP 105/69 01/12/17 07:00 Pulse Ox 92 L 01/12/17 07:00 Intake & Output 01/11/17 01/12/17 01/12/17 18:59 06:59 18:59 Intake Total 480 Output Total 1000 Balance -520 Weight 71 kg Intake: Oral 480 Output: Urine 1000 Other: Voiding Method Toilet Toilet # Voids 0 3 2 # Bowel Movements 0 1 - Exam gen:alert and oriented lungs: Diminished to auscultation. No wheezes heart:s1s2 abdomen:soft and depressible,non tender, softly distended ext:no edema - Labs CBC & Chem 7: 01/12/17 07:49 01/08/17 05:44 Labs: Abnormal Lab Results - Last 24 Hours (Table) 01/12/17 01/12/17 Range/Units 07:49 07:49 MCH 24.2 L (25.0-35.0) pg MCHC 29.3 L (31.0-37.0) g/dL RDW 17.6 H (11.5-15.5) % Neutrophils # 8.3 H (1.3-7.7) k/uL Lymphocytes # 0.9 L (1.0-4.8) k/uL PT 12.4 H (9.0-12.0) sec INR 1.3 H (<1.2) APTT 50.3 H (22.0-30.0) sec Microbiology - Last 24 Hours (Table) 01/07/17 21:31 Blood Culture - Preliminary Blood No Growth after 96 hours Assessment and Plan (1) Dyspnea Narrative/Plan: Starting to feel better now. Plan for thoracentesis by Dr. Cao Status: Acute (2) Ascites Narrative/Plan: Status post paracentesis of 6 L Status: Acute (3) DVT, bilateral lower limbs Narrative/Plan: On heparin drip Status: Acute (4) Pulmonary emboli Narrative/Plan: On heparin drip Status: Acute (5) Metastatic adenocarcinoma Narrative/Plan: Patient with stage IV adenocarcinoma. Treatment at this point is palliative. I discussed with patient today she understands the condition is terminal in chemo will only be palliative Status: Acute (6) Pleural effusion Narrative/Plan: Serum for thoracentesis by Dr. Jack Status: Acute Plan: I did discuss went over everything with the patient. She understands that her condition is terminal chemotherapy is just palliative at this point. She wants to pursue palliative chemo at this time.
--- NOTE | 2017-01-12 09:49 | XR ---
EXAMINATION TYPE: XR chest 1V portable DATE OF EXAM: 01/12/2017 COMPARISON: Prior chest x-ray 01/11/2017 HISTORY: Pleural effusion TECHNIQUE: Single frontal view of the chest is obtained. FINDINGS: Bibasilar increased density persists, the heart is enlarged. No evident pneumothorax. Pulm onary vascularity and arik are stable. Prominent lung volume may be indicative of COPD. Patient is ro tated. IMPRESSION: Bibasilar effusions and associated atelectasis, correlate to exclude pneumonia. Cardiome stefani.
[2017-01-12] MEDS: HEPARIN SODIUM,PORCINE/D5W PMX 25,000 UNIT in DEXTROSE/WATER 1 500ML.BAG IV SCH (10:45)
--- NOTE | 2017-01-12 13:29 | P.PN ---
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 I was asked to evaluate this patient shortness of breath. The patient is a very complex medical history. She initially presented to [facility] with increasing shortness of breath and lower extremity swelling, in late 11/12. She was found to have bilateral PE and DVT. At that time the patient was also given an IVC filter and placed on anticoagulation. However, imaging at that time also revealed evidence of lesions in the liver suggestive of metastasis. She underwent a liver biopsy on 11/24/16. Tumor markers revealed markedly elevated CA 19-9[place] [address]. CEA was also elevated at 2720, with the CT a 125 increased to a much lesser extent at 198. AFP was normal at 2.3. Biopsy came back positive for moderately differentiated adenocarcinoma, most consistent with upper GI/pancreatobiliary primary though lung was not totally ruled out. Around this time the patient apparently had a Pap smear that showed some atypical squamous cells but no definite evidence of malignancy. During that admission, the patient also had an IVC filter placed. At the time of discharge, the patient was prescribed Xarelto, but apparently was not taking it regularly, due to coverage issues. Chest x-ray on 11/18/16 had shown bibasilar infiltrates and pleural effusions. CT chest abdomen and pelvis on 11/19/16 had revealed bilateral pulmonary emboli involving upper, middle and lower lobe branches. There was a small pleural effusion on the left side as well as a small speculated subpleural nodule in the left chest measuring 0.8 cm. There was also a 5 mm nodule in the right lung base. The CT of the abdomen had shown diffusely enlarged liver, nearly 20 cm, with multiple ill-defined hypodense lesions throughout consistent with metastasis, largest in the left lobe measuring 4.4 cm and the largest in the right measuring 4.6 cm. The spleen had also shown innumerable variable size fluid attenuation nodules largest anteriorly measuring 3.1 cm. Pancreatic and adrenal glands were negative. There was extensive mesenteric hyperdensity in the left anterior upper abdomen highly suggestive of peritoneal/omental metastatic deposits. Enlarged lymph nodes were noted in the left iliac and femoral regions. CT pelvis showed a moderate amount of ascites. Lower extremity Doppler had shown bilateral DVT, more extensive on the left compared to the right The patient went to the emergency room at [facility], on 12/31/16 complaining of some abdominal distention. She then came back to the ER at [facility] on 01/07/17, complaining of progressive shortness of breath as well as abdominal distention over the past few days. She had a repeat CTA done, which now showed progression of pleural effusions greater on the right than the left. Bilateral PE again noted, with decrease in clot burden. Compared to prior computed tomography scan done on 11/18/16 there appeared to be progression of disease in the liver. The patient was thus transferred here, for further management. The patient underwent a large volume paracentesis yesterday that was done by interventional radiology. A total of 6 L of fluid was removed and on today's evaluation the patient is already feeling better and she is less short of breath. I reviewed the CTA of the chest and I think there is small to moderate-sized bilateral pleural effusion which could be potentially malignant at this stage. Clinically the patient is doing well. She is in oxygen at 3 L/m nasal cannula. Lower extremities are swollen and the patient has been confirmed to have bilateral DVTs based on recent Doppler of the lower extremities was done on 01/07/2017. She is currently on IV heparin. No other oral anticoagulants for now. She is hemodynamically stable. Oncology is on the case. No hemoptysis. No pleurisy. No other complaints otherwise. Her shortness of breath significantly improved following the paracentesis Patient was reevaluated today on 01/11/2017, doing well, relatively asymptomatic , had paracentesis done and total of 6 L of fluid were removed, noticed no significant change in her right pleural effusion. Patient is now on IV heparin , may consider holding the heparin tomorrow and performing a right-sided thoracentesis however before doing that I would like to have a repeat chest x- ray in a.m. I reviewed the results of the ultrasound of the chest, and I plan to most likely perform a right-sided thoracentesis on the patient tomorrow hoping to expand her right lung further. Patient is not in any form of respiratory distress, she is being followed by oncology, and she will eventually need to have outpatient follow-up with oncology for chemotherapy. Apparently she already had a tissue diagnosis showing moderately differentiated adenocarcinoma consistent with upper GI/pancreatobiliary primary. On 01/12/2017 she has reevaluated. She is wearing oxygen intermittently, usually after ambulation. Lung sounds are clear, diminished at the bases right greater than the left . No rhonchi, no wheezes no rales . She wears 2 L of oxygen at home, and has a concentrator. Chest x-ray from 01/12/[address] Matthew, the right pleural effusion is decreasing in size, patient may be started on Xarelto, heparin drip can be stopped. Patient can be discharged home from pulmonary standpoint. Objective - Vital Signs Vital signs: Vital Signs Temp 97.5 F L 01/12/17 07:00 Pulse 86 01/12/17 07:55 Resp 18 01/12/17 07:55 BP 105/69 01/12/17 07:00 Pulse Ox 92 L 01/12/17 07:00 Intake & Output 01/11/17 01/12/17 01/12/17 18:59 06:59 18:59 Intake Total 869.92 Output Total 1000 Balance -130.08 Weight 71 kg Intake: Intake, IV Titration 389.92 Amount Heparin Sodium,Porcine/ 389.92 D5w Pmx 25,000 unit In Dextrose/Water 1 500ml. bag @ 18 UNITS/KG/HR 25.8 mls/hr IV .[id number] [facility] Rx#:[id number] Oral 480 Output: Urine 1000 Other: Voiding Method Toilet Toilet # Voids 0 3 1 # Bowel Movements 0 1 - Exam Exam Physical Exam: Revealed a 51-year-old female in no distress. Head: Normocephalic, atraumatic. PERRLA, EOMI. HEENT:[Neck is supple.] [No neck masses.] [No thyromegaly.] [No JVD.] Chest: [Clear throughout, no crackles, no rhonchi, no wheezes.] Cardiac Exam: [Normal S1 and S2, no S3 gallop, no murmur.] Abdomen: [Soft, nontender, positive ascites, no rebound, no guarding. Positive shifting wave and dullness. Extremities: [No clubbing, no edema, no cyanosis.] Neurological Exam: [No focal neurologic deficit. Musculoskeletal normal range of motion, and no weakness. Skin: No rashes, no ulcerations Psychiatric: Normal mood and affect, no evidence of anxiety, and no symptoms to suggest depression. Normal mental status exam.] - Labs CBC & Chem 7: 01/12/17 07:49 01/08/17 05:44 Labs: Abnormal Lab Results - Last 24 Hours (Table) 01/12/17 01/12/17 Range/Units 07:49 07:49 MCH 24.2 L (25.0-35.0) pg MCHC 29.3 L (31.0-37.0) g/dL RDW 17.6 H (11.5-15.5) % Neutrophils # 8.3 H (1.3-7.7) k/uL Lymphocytes # 0.9 L (1.0-4.8) k/uL PT 12.4 H (9.0-12.0) sec INR 1.3 H (<1.2) APTT 50.3 H (22.0-30.0) sec Microbiology - Last 24 Hours (Table) 01/07/17 21:31 Blood Culture - Preliminary Blood No Growth after 96 hours Assessment and Plan Plan: Assessment and Plan Plan: 1 metastatic stage IV cancer of a gastrointestinal/biliary in origin with secondary omental involvement and ascites and hepatic metastases. There may be also possibly pulmonary metastases knowing that the patient has multiple pulmonary nodules that are subcentimeter scattered throughout the lungs and the patient has also developed bilateral pleural effusions. Possibly malignant pleural effusions. A Biopsy of the liver has shown metastatic adenocarcinoma. The patient has an elevated CA-19-9 level. This is likely a metastatic adenocarcinoma of a biliary origin 2 pulmonary embolism, bilateral, initially diagnosed in October 2016 and the patient has an IVC filter in place. Patient was prescribed Xarelto for pulmonary embolism 3 bilateral lower extremity DVT 4 bilateral lower extremity edema 5 shortness of breath due to massive ascites, bilateral pleural effusion and pulmonary embolism. 6 acute hypoxic arrest 30 failure secondary to above and the patient is currently on oxygen at 2 L/m nasal cannula 7 cervical dysplasia Recommendation: Chest x-ray from 01/12/2017 has been reviewed and shows slight improvement in the size of the right pleural effusion. Patient is oxygenating well only wearing oxygen intermittently. This point we will not cancel the thoracentesis. Patient may resume her Xarelto, stop the IV heparin. Prognosis is definitely poor and guarded, patient could be discharged home today and follow up on outpatient basis with oncology. I performed a history & physical examination of the patient and discussed their management with my nurse practitioner, Mariam Berg. I reviewed the nurse practitioner's note and agree with the documented findings and plan of care.
--- NOTE | 2017-01-12 13:37 | P.DS ---
Providers Date of admission: 01/08/17 00:18 Expected date of discharge: 01/12/17 Attending physician: Karl Andrade MD Consults: 01/08/17 00:15 Consult Physician Routine Consulting Provider: Ramiro De La Vega Consult Reason/Comments: ca Do you want consulting provider notified?: Yes 01/10/17 10:49 Consult Physician Routine Consulting Provider: Jeremie Walter Consult Reason/Comments: Pleural effusions, dyspnea, need for thoracentesis Do you want consulting provider notified?: Yes Primary care physician: Delonte Hadley - Discharge Diagnosis(es) (1) Dyspnea Current Visit: Yes Status: Acute (2) Ascites Current Visit: Yes Status: Acute (3) DVT, bilateral lower limbs Current Visit: Yes Status: Acute (4) Pulmonary emboli Current Visit: Yes Status: Acute (5) Metastatic adenocarcinoma Current Visit: Yes Status: Acute (6) Pleural effusion Current Visit: Yes Status: Acute Hospital Course: this is a 51-year-old female with history of metastatic pancreatic cancer that comes in with symptoms of shortness of breath abdominal pain. Patient was found to have large volume ascites which paracentesis was performed at 6 L were obtained. Patient felt comfortable with that. Patient on previous admission was found to have pulmonary embolism and DVT for which she was on Trileptal. She was here short prescription he was placed on heparin drip. Patient was also found to have a pleural effusion which Dr. Jack decided on not performing thoracentesis because was not big enough. I did discuss future plans with the patient and his seem like Dr. Erwin did discuss this as well. She understands that her condition is terminal and chemotherapy is just couldn't be palliative in nature and not curative. She understands this and wants to proceed with treatment. So patient will be discharged home today on home back on her Serostim issues to follow-up with hematology oncology as an outpatient. Time spent discharging was 40 minutes today Patient Condition at Discharge: Stable Plan - Discharge Summary New Discharge Prescriptions: Continue Rizatriptan Benzoate [Rizatriptan] 10 mg PO DAILY PRN PRN Reason: Migraine Headache Ranitidine HCl [Zantac] 150 mg PO BID Hydrocodone/Acetaminophen [[place] 5-325] 1 tab PO Q6HR PRN PRN Reason: Pain Rivaroxaban [Xarelto Starter Pack] 1 tab PO DIRECTED diphenhydrAMINE HCL [Benadryl] 25 mg PO HS PRN PRN Reason: Allergy Symptoms Discharge Medication List Hydrocodone/Acetaminophen [[place] 5-325] 1 tab PO Q6HR PRN 01/07/17 [History] Ranitidine HCl [Zantac] 150 mg PO BID 01/07/17 [History] Rivaroxaban [Xarelto Starter Pack] 1 tab PO DIRECTED 01/07/17 [History] Rizatriptan Benzoate [Rizatriptan] 10 mg PO DAILY PRN 01/07/17 [History] diphenhydrAMINE HCL [Benadryl] 25 mg PO HS PRN 01/07/17 [History] Follow up Appointment(s)/Referral(s): Delonte Hadley DO [Primary Care Provider] - 1-2 days Ramiro De La Vega MD [STAFF PHYSICIAN] - 01/12/17 10:00 am Patient Instructions/Handouts: Pulmonary Embolism (DC), Deep Venous Thrombosis (DC)
== END 2017-01-12 14:55 | disposition home or self-care (01) | DRG 435 ==
LOC: EC 20:39 → 6SEL 01-08 00:18 → 5MS5E 01-11 20:31
PROVIDERS: ADMIT Internal Medicine; ATTEND Internal Medicine
PROC: 0W9G3ZX Drainage of Peritoneal Cavity, Percutaneous Approach, Diagnostic (ICD-10-PCS; principal; 2017-01-09)
DX: C25.9 Malignant neoplasm of pancreas, unspecified (principal); I26.99 Other pulmonary embolism without acute cor pulmonale; J96.01 Acute respiratory failure with hypoxia; R18.0 Malignant ascites; J90 Pleural effusion, not elsewhere classified; D68.9 Coagulation defect, unspecified; C78.00 Secondary malignant neoplasm of unspecified lung; C78.6 Secondary malignant neoplasm of retroperitoneum and peritoneum; I82.403 Acute embolism and thrombosis of unspecified deep veins of lower extremity, bilateral; C78.7 Secondary malignant neoplasm of liver and intrahepatic bile duct; K59.00 Constipation, unspecified; N87.9 Dysplasia of cervix uteri, unspecified; F17.200 Nicotine dependence, unspecified, uncomplicated; F41.9 Anxiety disorder, unspecified; J44.9 Chronic obstructive pulmonary disease, unspecified; Z79.01 Long term (current) use of anticoagulants; Z99.81 Dependence on supplemental oxygen; Z80.9 Family history of malignant neoplasm, unspecified; Z79.899 Other long term (current) drug therapy; Z88.0 Allergy status to penicillin
CPT/HCPCS: 36415; 49083; 71010; 71020; 74000; 76604; 80053; 81001; 82550; 82553; 83690; 83735; 84100; 84484; 85025; 85610; 85730; 87040; 87086; 88108; 88305; 88341; 88342; 93005; 96360; 96365; 96375; 96376; 99285

== ENCOUNTER 2017-02-02 12:47 | Inpatient (IN) | payer OTHER ==
--- NOTE | 2017-02-02 13:07 | CT ---
EXAMINATION TYPE: CT brain wo con for TPA DATE OF EXAM: 02/02/2017 COMPARISON: NONE INDICATION: Patient poor historian. Patient has left side weakness. Patient has history of cancer. DLP: 829.4 mGycm, Automated exposure control for dose reduction was used. CONTRAST: None CT of the brain is performed utilizing 3 mm thick sections through the posterior fossa and 3 mm thick sections through the remaining calvarium. Study is performed within 24 hours of arrival to the hosp ital. No abnormal hyperdensity is present to suggest an acute intracranial hemorrhage. No mass lesion is evident. No acute infarcts are evident. Ventricles and sulci are appropriate for the patient age. There is a small retention cyst within the anterior right sphenoid sinus. Remaining paranasal sinuses are clear. IMPRESSIONS: 1. No acute intracranial process.
[2017-02-02 13:08] LABS: Anisocytosis Slight; Basophils # (A) 0.1 k/uL (0-0.2); Basophils % (A) 1 %; CH 24.4; CHCM 29.8; Eosinophils # (A) 0.3 k/uL (0-0.7); Eosinophils % (A) 2 %; HCT 43.5 % (34.0-46.0); HDW 2.92; HGB 13.1 gm/dL (11.4-16.0); Hypochromasia Marked; Luc # (Auto) 0.15; Luc % (Auto) 1; Lymphocytes # (A) 0.8 k/uL (1.0-4.8); Lymphocytes % (A) 5 %; MCH 24.8 pg (25.0-35.0); MCHC 30.2 g/dL (31.0-37.0); MCV 82.1 fL (80.0-100.0); Mean Platelet Volume 8.3; Monocytes # (A) 0.6 k/uL (0-1.0); Monocytes % (A) 3 %; Neutrophils # (A) 15.2 k/uL (1.3-7.7); Neutrophils % (A) 89 %; RBC 5.29 m/uL (3.80-5.40); RDW 18.8 % (11.5-15.5); WBC 17.1 k/uL (3.8-10.6); WBC (Perox) 17.87
[2017-02-02] MEDS ORDERED: RX INFO: IV CONTRAST WAS GIVEN 1 EACH MISC MISCELLANE PRN ×2 (13:14→20:52)
[2017-02-02 13:16] LABS: ALT 24 U/L (9-52); AST 21 U/L (14-36); Alkaline Phosphatase 295 U/L (38-126); Anion Gap 10 mmol/L; Blood Urea Nitrogen 9 mg/dL (7-17); Calcium 8.6 mg/dL (8.4-10.2); Carbon Dioxide 23 mmol/L (22-30); Chloride 100 mmol/L (98-107); Glucose 100 mg/dL (74-99); INR 1.6 (<1.2); Non-African American GFR(MDRD) >60 (>60 ml/min/1.73 sqM); Partial Thromboplastin Time 23.7 sec (22.0-30.0); Potassium 4.2 mmol/L (3.5-5.1); Prothrombin Time 15.6 sec (9.0-12.0); Sodium 133 mmol/L (137-145); Total Bilirubin 0.7 mg/dL (0.2-1.3); Total Protein 5.8 g/dL (6.3-8.2)
--- NOTE | 2017-02-02 13:19 | ED ---
General Adult HPI - General Chief complaint: Neuro Symptoms/Deficit Stated complaint: TIA Time Seen by Provider: 02/02/17 12:51 Source: patient, EMS, RN notes reviewed Mode of arrival: EMS Limitations: altered mental status, physical limitation - History of Present Illness Initial comments: Patient is a pleasant 51-year-old female presenting to the emergency department with concerns for left-sided weakness. Patient is a poor historian. EMS tells provides history. EMS reports that family had concern for left-sided weakness starting 2 hours ago. Patient is unclear when it started but feels it started today. Patient does complain of some abdominal distention which has been somewhat chronic for her recently and has had several paracentesis done recently. Patient did have a port placed in her right chest approximately a week ago. Patient states she does have a history of colon cancer and is planning on starting chemotherapy in the near future. - Related Data Home Medications Medication Instructions Recorded Confirmed Hydrocodone/Acetaminophen [[place] 1 tab PO Q6HR PRN 01/07/17 02/02/17 5-325] Ranitidine HCl [Zantac] 150 mg PO BID 01/07/17 02/02/17 Rizatriptan Benzoate [Rizatriptan] 10 mg PO DAILY PRN 01/07/17 02/02/17 Furosemide [Lasix] 20 mg PO DAILY 01/22/17 02/02/17 Potassium Chloride [Klor-Con 10] 10 meq PO DAILY 02/02/17 02/02/17 Rivaroxaban [Xarelto] 20 mg PO DAILY 02/02/17 02/02/17 Allergies Allergy/AdvReac Type Severity Reaction Status Date / Time Penicillins Allergy Swelling Verified 02/02/17 13:14 Review of Systems ROS Statement: Those systems with pertinent positive or pertinent negative responses have been documented in the HPI. ROS Other: All systems not noted in ROS Statement are negative. Constitutional: Denies: fever Eyes: Denies: eye pain ENT: Denies: ear pain Respiratory: Reports: dyspnea (Reported dyspnea earlier however patient states she is breathing fine.). 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, ascites and [place] pleural effusions, bilateral lower extremity DVT, pulmonary embolism, lower extremity edema, ascites, atypical cells from cervical evaluation without indication of cervical cancer History of Any Multi-Drug Resistant Organisms: None Reported Additional Past Surgical History / Comment(s): liver biopsy, history of cervical procedures for atypical cervical cells Past Anesthesia/Blood Transfusion Reactions: No Reported Reaction Past Psychological History: Anxiety Smoking Status: Current some day smoker Past Alcohol Use History: None Reported Past Drug Use History: None Reported - Past Family History Father History Unknown: Yes Family Medical History: Cancer, Hypertension Additional Family Medical History / Comment(s): after cancer went to brain Mother History Unknown: Yes Family Medical History: Coronary Artery Disease (CAD), Hyperlipidemia, Hypertension, Myocardial Infarction ([place]) Additional Family Medical History / Comment(s): heart caths with stents General Exam Limitations: altered mental status, physical limitation General appearance: alert Head exam: Present: atraumatic Eye exam: Present: normal appearance, PERRL, other (Unable to move the eyes past midline on the left) ENT exam: Present: normal oropharynx Neck exam: Present: normal inspection Respiratory exam: Present: normal lung sounds bilaterally Cardiovascular Exam: Present: regular rate, normal rhythm GI/Abdominal exam: Present: soft, distended (Mildly distended/ascites). Absent : tenderness Extremities exam: Present: pedal edema. Absent: calf tenderness Neurological exam: Present: alert, altered Expanded Neurological exam: Present: other (Left facial droop and difficulty moving left eyes past midline. Left-sided neglect.) Patient oriented to: Present: person, place. Absent: time (Patient is unclear if it is 2017 or 2018.) Cranial nerves: EOM's Intact: Abnormal Left (Unable to move left of midline) Motor strength exam: RUE: 5, LUE: 0, RLE: 5, LLE: 2/1 Eye Response: (4) open spontaneously Motor Response: (6) obeys commands Verbal Response: (4) confused conversation Psychiatric exam: Present: normal affect, normal mood Skin exam: Present: normal color Course Vital Signs 02/02/17 02/02/17 02/02/17 12:50 13:05 13:20 Temperature 96.7 F L Pulse Rate 101 H 101 H 100 Respiratory 18 18 18 Rate Blood Pressure 126/85 126/86 106/80 O2 Sat by Pulse 94 L 96 95 Oximetry 02/02/17 02/02/17 13:35 14:35 Temperature Pulse Rate 103 H 103 H Respiratory 18 18 Rate Blood Pressure 120/87 113/89 O2 Sat by Pulse 95 95 Oximetry - Reevaluation(s) Reevaluation #1: 02/02/17 13:13 Case was discussed in detail with Dr. Larry who does not recommend patient have TPA. He is concerned regarding metastatic colon cancer with liver lesions and patient being on Xarelto and felt she is very high risk for bleeding with TPA. He will does recommend further treatment to be determined by neurologist. 02/02/17 15:26 Case was discussed in detail with Dr. Bunch who question pneumothorax from procedure secondary to the way the port was placed with ultrasound guidance. He does recommend consulting Dr. Matthew since he is out of town currently. He feels it is unlikely that patient needs an emergent chest tube at this time. He states if needed for surgical consult Dr. Thompson could be consulted. Case also discussed in detail with Dr. Matthew, who will consult. He also recommends counseled seen Dr. Rojas. 02/02/17 15:31 Dr. Jerez has been paged for admission for hospital call. EKG Findings - EKG Comments: EKG Findings:: Sinus tachycardia 101. MS 114. QRS 82. QT 308. QTC 399. Normal axis. Normal QRS. Nonspecific T waves. Medical Decision Making - Lab Data Result diagrams: 02/02/17 12:49 02/02/17 12:49 Lab Results 02/02/17 02/02/17 02/02/17 Range/Units 12:49 12:49 12:49 WBC 17.1 H (3.8-10.6) k/uL RBC 5.29 (3.80-5.40) m/uL Hgb 13.1 (11.4-16.0) gm/dL Hct 43.5 (34.0-46.0) % MCV 82.1 (80.0-100.0) fL MCH 24.8 L (25.0-35.0) pg MCHC 30.2 L (31.0-37.0) g/dL RDW 18.8 H (11.5-15.5) % Plt Count 253 (150-450) k/uL Neutrophils % 89 % Lymphocytes % 5 % Monocytes % 3 % Eosinophils % 2 % Basophils % 1 % Neutrophils # 15.2 H (1.3-7.7) k/uL Lymphocytes # 0.8 L (1.0-4.8) k/uL Monocytes # 0.6 (0-1.0) k/uL Eosinophils # 0.3 (0-0.7) k/uL Basophils # 0.1 (0-0.2) k/uL Hypochromasia Marked Anisocytosis Slight PT (9.0-12.0) sec INR (<1.2) APTT (22.0-30.0) sec Sodium 133 L (137-145) mmol/L Potassium 4.2 (3.5-5.1) mmol/L Chloride 100 (98-107) mmol/L Carbon Dioxide 23 (22-30) mmol/L Anion Gap 10 mmol/L BUN 9 (7-17) mg/dL Creatinine 0.60 (0.52-1.04) mg/dL Est GFR (MDRD) Af Amer >60 (>60 ml/min/1.73 sqM) Est GFR (MDRD) Non-Af >60 (>60 ml/min/1.73 sqM) Glucose 100 H (74-99) mg/dL Calcium 8.6 (8.4-10.2) mg/dL Total Bilirubin 0.7 (0.2-1.3) mg/dL AST 21 (14-36) U/L ALT 24 (9-52) U/L Alkaline Phosphatase 295 H (38-126) U/L Total Creatine Kinase 180 H (30-135) U/L CK-MB (CK-2) 2.7 H* (0.0-2.4) ng/mL CK-MB (CK-2) Rel Index 1.5 Troponin I 0.326 H* (0.000-0.034) ng/mL Total Protein 5.8 L (6.3-8.2) g/dL Albumin 2.6 L (3.5-5.0) g/dL 02/02/17 Range/Units 12:49 WBC (3.8-10.6) k/uL RBC (3.80-5.40) m/uL Hgb (11.4-16.0) gm/dL Hct (34.0-46.0) % MCV (80.0-100.0) fL MCH (25.0-35.0) pg MCHC (31.0-37.0) g/dL RDW (11.5-15.5) % Plt Count (150-450) k/uL Neutrophils % % Lymphocytes % % Monocytes % % Eosinophils % % Basophils % % Neutrophils # (1.3-7.7) k/uL Lymphocytes # (1.0-4.8) k/uL Monocytes # (0-1.0) k/uL Eosinophils # (0-0.7) k/uL Basophils # (0-0.2) k/uL Hypochromasia Anisocytosis PT 15.6 H (9.0-12.0) sec INR 1.6 H (<1.2) APTT 23.7 (22.0-30.0) sec Sodium (137-145) mmol/L Potassium (3.5-5.1) mmol/L Chloride (98-107) mmol/L Carbon Dioxide (22-30) mmol/L Anion Gap mmol/L BUN (7-17) mg/dL Creatinine (0.52-1.04) mg/dL Est GFR (MDRD) Af Amer (>60 ml/min/1.73 sqM) Est GFR (MDRD) Non-Af (>60 ml/min/1.73 sqM) Glucose (74-99) mg/dL Calcium (8.4-10.2) mg/dL Total Bilirubin (0.2-1.3) mg/dL AST (14-36) U/L ALT (9-52) U/L Alkaline Phosphatase (38-126) U/L Total Creatine Kinase (30-135) U/L CK-MB (CK-2) (0.0-2.4) ng/mL CK-MB (CK-2) Rel Index Troponin I (0.000-0.034) ng/mL Total Protein (6.3-8.2) g/dL Albumin (3.5-5.0) g/dL - Radiology Data Radiology results: report reviewed (CT angiogram head and neck shows no acute skin stenosis. Right-sided pneumothorax.), image reviewed (1 view chest x-ray shows right-sided hydro-pneumothorax. There is right-sided Port-A-Cath in place. Computed tomography scan of the brain shows no acute process.) Critical Care Time Critical Care Time: Yes Total Critical Care Time: 31 Disposition Clinical Impression: Cerebrovascular accident, Hydropneumothorax, Metastatic adenocarcinoma Disposition: ADMITTED IP TO THIS [facility] Condition: Serious Referrals: Delonte Hadley DO [Primary Care Provider] - 1-2 days Decision Time: 15:31
[2017-02-02 13:45] LABS: Creatine Kinase MB 2.7 ng/mL (0.0-2.4); Troponin I 0.326 ng/mL (0.000-0.034)
--- NOTE | 2017-02-02 14:15 | CT ---
EXAMINATION TYPE: CT angio head neck DATE OF EXAM: 02/02/2017 HISTORY: Patient poor historian. stroke symptoms. left side weakness. COMPARISON: Chest x-ray same date CT DLP: 304 mGycm. Automated Exposure Control for Dose Reduction was Utilized. TECHNIQUE: CTA scan of the neck is performed with IV Contrast, patient injected with 65 mL of Omnipa que 350, axial images are obtained, coronal and sagittal reformatted images are reviewed. Three-D rec onstructed images are created on an independent workstation and reviewed. FINDINGS: Carotid/Vascular Structures: Carotid artery bifurcation appears patent without significant flow-limit ing stenosis there is some tortuosity of the left internal carotid artery. Vertebral arteries are cod ominant and patent. [place]: Internal carotid arteries bifurcate into A1 and M1 segments. A2 segments appear nor mal. Middle cerebral artery branches on source images appear unremarkable. The posterior right communicating artery is patent. Left posterior communicating artery is not defini tely identified. The anterior communicating artery is patent. Other: There is a moderate right pleural effusion. Right-sided pneumothorax may be present. IMPRESSION: 1. Right-sided pneumothorax. Subsequent chest x-ray suggests this may be larger on the chest x-ray. R eport was a moderately called to emergency room physician by Dr. Arce by telephone at 1412 hours 1 04/04/2016 2. Internal carotid artery origins and [place] appear within normal limits.
--- NOTE | 2017-02-02 14:19 | XR ---
EXAMINATION TYPE: XR chest 1V DATE OF EXAM: 02/02/2017 COMPARISON: CT 02/02/2017, chest x-ray 01/12/2017 HISTORY: Altered mental status. TECHNIQUE: Single frontal view of the chest is obtained. FINDINGS: Right-sided hydropneumothorax is noted as on CT. Right-sided Port-A-Cath has been placed i nterval over the right pectoral region, distal tip is coursing in the region of the superior vena cav a, patient is rotated. The heart is enlarged. There may be left lower lobe atelectasis versus pneumon ia and associated IMPRESSION: Right-sided hydropneumothorax. Report relayed to Dr. Joel telephonically.
[2017-02-02] MEDS: SODIUM CHLORIDE 0.9% 1,000 ML IV SCH (15:41)
[2017-02-02] MEDS ORDERED: HYDROcodone/APAP 5-325MG 1 EACH TAB PO PRN (23:15)
[2017-02-03 00:29] LABS: Creatine Kinase MB 1.9 ng/mL (0.0-2.4)
[2017-02-03 00:40] LABS: Troponin I 0.38 ng/mL (0.000-0.034)
[2017-02-03 06:24] LABS: Anisocytosis Slight; Basophils # (A) 0.1 k/uL (0-0.2); Basophils % (A) 1 %; CH 23.8; CHCM 29.1; Eosinophils # (A) 0.3 k/uL (0-0.7); Eosinophils % (A) 2 %; HCT 38.1 % (34.0-46.0); HDW 2.86; HGB 11.5 gm/dL (11.4-16.0); Hypochromasia Marked; Luc # (Auto) 0.14; Luc % (Auto) 1; Lymphocytes # (A) 0.8 k/uL (1.0-4.8); Lymphocytes % (A) 5 %; MCH 24.8 pg (25.0-35.0); MCHC 30.2 g/dL (31.0-37.0); MCV 82.2 fL (80.0-100.0); Mean Platelet Volume 8.1; Monocytes # (A) 0.7 k/uL (0-1.0); Monocytes % (A) 4 %; Neutrophils # (A) 13.4 k/uL (1.3-7.7); Neutrophils % (A) 87 %; RBC 4.63 m/uL (3.80-5.40); RDW 18.4 % (11.5-15.5); WBC 15.3 k/uL (3.8-10.6); WBC (Perox) 15.91
[2017-02-03 06:34] LABS: Anion Gap 11 mmol/L; Blood Urea Nitrogen 7 mg/dL (7-17); Calcium 8.2 mg/dL (8.4-10.2); Carbon Dioxide 21 mmol/L (22-30); Chloride 101 mmol/L (98-107); Cholesterol 185 mg/dL (<200); Glucose 54 mg/dL (74-99); HDL Cholesterol 21 mg/dL (40-60); Non-African American GFR(MDRD) >60 (>60 ml/min/1.73 sqM); Potassium 3.9 mmol/L (3.5-5.1); Sodium 133 mmol/L (137-145)
[2017-02-03 07:04] LABS: Creatine Kinase MB 1.7 ng/mL (0.0-2.4)
[2017-02-03 07:19] LABS: Glucose,Whole Blood 107 mg/dL (75-99)
[2017-02-03 07:21] LABS: Troponin I 0.414 ng/mL (0.000-0.034)
--- NOTE | 2017-02-03 07:50 | P.CRDCN ---
History of Present Illness Consult date: 02/03/17 Chief complaint: Generalized weakness History of present illness: This is a pleasant and unfortunate 51-year-old female patient with stage IV colon cancer with metastasis to the lung who is also poor historian at this point of time was brought to the emergency room with concern about left sided weakness. The patient is a poor historian and she seems to be in mild respiratory distress. She stated that she has been progressively weak lately. She denies having any chest pain or chest discomfort but she has been also progressively getting more short of breath. No dizziness or lightheadedness and no syncope. Beside that the patient has been experiencing progressive abdominal distention and she stated that she had paracentesis in the past. She has a port placed in the right chest about a week ago. The patient apparently has a stage IV colon cancer and there was a plan to start the patient on chemotherapy in the near future. When she arrived to the emergency room and during her hospitalization she is tachycardic with heart rate around 110 beats per minute. The EKG showed low voltage QRS with sinus tachycardia. The patient also is on oral anticoagulation for history of DVT/PE according to the previous medical records. The cardiac enzymes were checked and came in to be slightly abnormal which is likely secondary to the sinus tachycardia. More importantly, the chest x-ray revealed right-sided hydropneumothorax and cardiothoracic surgeon was consulted to see the patient. 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, ascites and [place] pleural effusions, bilateral lower extremity DVT, pulmonary embolism, lower extremity edema, ascites, atypical cells from cervical evaluation without indication of cervical cancer History of Any Multi-Drug Resistant Organisms: None Reported Additional Past Surgical History / Comment(s): liver biopsy, history of cervical procedures for atypical cervical cells Past Anesthesia/Blood Transfusion Reactions: No Reported Reaction Past Psychological History: Anxiety Smoking Status: Current some day smoker Past Alcohol Use History: None Reported Past Drug Use History: None Reported - Past Family History Father History Unknown: Yes Family Medical History: Cancer, Hypertension Additional Family Medical History / Comment(s): after cancer went to brain Mother History Unknown: Yes Family Medical History: Coronary Artery Disease (CAD), Hyperlipidemia, Hypertension, Myocardial Infarction ([place]) Additional Family Medical History / Comment(s): heart caths with stents Medications and Allergies Home Medications Medication Instructions Recorded Confirmed Type Hydrocodone/Acetaminophen [[place] 1 tab PO Q6HR PRN 01/07/17 02/02/17 History 5-325] Ranitidine HCl [Zantac] 150 mg PO BID 01/07/17 02/02/17 History Rizatriptan Benzoate [Rizatriptan] 10 mg PO DAILY PRN 01/07/17 02/02/17 History Furosemide [Lasix] 20 mg PO DAILY 01/22/17 02/02/17 History Potassium Chloride [Klor-Con 10] 10 meq PO DAILY 02/02/17 02/02/17 History Rivaroxaban [Xarelto] 20 mg PO DAILY 02/02/17 02/02/17 History Allergies Allergy/AdvReac Type Severity Reaction Status Date / Time Penicillins Allergy Swelling Verified 02/02/17 13:14 Physical Exam Vitals: Vital Signs Temp Pulse Pulse Resp BP BP Pulse Ox 02/03/17 04:00 98.9 F 115 H 18 127/97 92 L 02/03/17 00:00 97.5 F L 110 H 18 122/83 94 L 02/02/17 20:00 97.1 F L 108 H 18 122/88 95 02/02/17 18:32 108 H 16 125/88 96 02/02/17 17:32 97.7 F 105 H 18 120/83 92 L 02/02/17 16:32 106 H 16 120/90 93 L 02/02/17 15:35 102 H 14 124/78 91 L 02/02/17 14:35 103 H 18 113/89 95 02/02/17 13:35 103 H 18 120/87 95 02/02/17 13:20 100 18 106/80 95 02/02/17 13:05 101 H 18 126/86 96 02/02/17 12:50 96.7 F L 101 H 18 126/85 94 L Intake and Output 02/02/17 02/03/17 02/03/17 22:59 06:59 14:59 Intake Total 800 Output Total 200 200 Balance -200 600 Intake: Intake, IV Titration 800 Amount Sodium Chloride 0.9% 1, 800 000 ml @ 100 mls/hr IV . Q10H [facility] Rx#:[id number] Output: Urine 200 200 Other: Voiding Method Bedpan Bedpan Weight 79.8 kg 77 kg - Constitutional General appearance: no acute distress - Respiratory Respiratory: right: diminished - Cardiovascular Rhythm: regular Heart sounds: normal: S1, S2 Results 02/03/17 05:34 02/03/17 05:34 Cardiac Enzymes 02/02/17 02/02/17 02/02/17 Range/Units 12:49 12:49 23:15 AST 21 (14-36) U/L CK-MB (CK-2) 2.7 H* 1.9 (0.0-2.4) ng/mL Troponin I 0.326 H* 0.380 H* (0.000-0.034) ng/mL 02/03/17 Range/Units 05:34 AST (14-36) U/L CK-MB (CK-2) 1.7 (0.0-2.4) ng/mL Troponin I 0.414 H* (0.000-0.034) ng/mL Coagulation 02/02/17 Range/Units 12:49 PT 15.6 H (9.0-12.0) sec APTT 23.7 (22.0-30.0) sec Lipids 02/03/17 Range/Units 05:34 Triglycerides 211 H (<150) mg/dL Cholesterol 185 (<200) mg/dL HDL Cholesterol 21 L (40-60) mg/dL CBC 02/02/17 02/03/17 Range/Units 12:49 05:34 WBC 17.1 H 15.3 H (3.8-10.6) k/uL RBC 5.29 4.63 (3.80-5.40) m/uL Hgb 13.1 11.5 (11.4-16.0) gm/dL Hct 43.5 38.1 (34.0-46.0) % Plt Count 253 229 (150-450) k/uL Comprehensive Metabolic Panel 02/02/17 02/03/17 Range/Units 12:49 05:34 Sodium 133 L 133 L (137-145) mmol/L Potassium 4.2 3.9 (3.5-5.1) mmol/L Chloride 100 101 (98-107) mmol/L Carbon Dioxide 23 21 L (22-30) mmol/L BUN 9 7 (7-17) mg/dL Creatinine 0.60 0.57 (0.52-1.04) mg/dL Glucose 100 H 54 L (74-99) mg/dL Calcium 8.6 8.2 L (8.4-10.2) mg/dL AST 21 (14-36) U/L ALT 24 (9-52) U/L Alkaline Phosphatase 295 H (38-126) U/L Total Protein 5.8 L (6.3-8.2) g/dL Albumin 2.6 L (3.5-5.0) g/dL Current Medications Generic Name Dose Route Start Last Admin Trade Name Freq PRN Reason Stop Dose Admin Hydrocodone Bitart/Acetaminophen 1 each 02/02/17 23:15 [place] 5-325 PO Q6HR PRN Pain Famotidine 20 mg 02/03/17 09:00 Pepcid PO BID NORMA Furosemide 20 mg 02/03/17 09:00 Lasix PO DAILY NORMA Sodium Chloride 1,000 mls @ 100 mls/hr 02/02/17 15:45 02/02/17 15:41 Saline 0.9% IV 100 mls/hr .Q10H NORMA Administration Miscellaneous Information 1 each 02/02/17 13:14 02/02/17 13:49 Rx Info: Iv Contrast Was Given MISCELLANE 02/04/17 13:14 1 each DAILY PRN Administration Per Protocol Miscellaneous Information 1 each 02/02/17 20:52 Rx Info: Iv Contrast Was Given MISCELLANE 02/04/17 20:52 DAILY PRN Per Protocol Potassium Chloride 10 meq 02/03/17 09:00 K-Dur 10 PO DAILY NORMA Rivaroxaban 20 mg 02/03/17 09:00 Xarelto PO DAILY NORMA Intake and Output 02/02/17 02/03/17 02/03/17 22:59 06:59 14:59 Intake Total 800 Output Total 200 200 Balance -200 600 Intake: Intake, IV Titration 800 Amount Sodium Chloride 0.9% 1, 800 000 ml @ 100 mls/hr IV . Q10H [facility]MA Rx#:[id number] Output: Urine 200 200 Other: Voiding Method Bedpan Bedpan Weight 79.8 kg 77 kg 02/03/17 05:34 02/03/17 05:34 Assessment and Plan Assessment: This is a pleasant 51-year-old unfortunate female patient who is known to have stage IV colon cancer with metastasis to the lung who was going to start chemotherapy recently with a known history of DVT/PE on anticoagulation presented to the emergency room with overall generalized weakness. She has also some change in mental status. The chest x-ray revealed right-sided hydropneumothorax and currently she is in process to be seen for chest tube placement. We get involved in her care for mildly abnormal cardiac enzymes which is likely related to sinus tachycardia which is secondary to her lung situation. At this point, I did recommend no further cardiac testing. We'll continue monitor the heart rate and blood pressure and start the patient on beta bonnie if she continues to be tachycardic. Thank you for allowing us participate in her care
--- NOTE | 2017-02-03 07:57 | P.GSCN ---
History of Present Illness Consult date: 02/03/17 Reason for Consult: Right sided hydropneumothorax, treatment recommendations. Requesting physician: Patrick Joel History of present illness: This 51 year old female with a past medical history of pancreatobiliary adenocarcinoma with liver metastasis with recent port placement for palliative chemotherapy, recent diagnoses of bilateral pulmonary embolism and DVTs with IVC filter placed in October 2016, ascites post paracentesis on 01/09/17 and with 6 liters fluid removed each time, COPD, and current tobacco dependance presented to the emergency room with left sided weakness and altered mental status. She is a poor historian and no family is present so history is taken from the chart. Apparently, her symptoms began approximately 2 hours prior to arrival to the emergency room per her family. She had a brain CT which demonstrated no acute process. CTA of the head and neck demonstrated no acute process as well, however a right sided pneumothorax was identified. CXR demonstrated right sided hydropneumothorax. Dr. Rojas was consulted for treatment recommendations. Review of Systems Review of systems was completed but was limited by patient's mental status. 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, ascites and [place] pleural effusions, bilateral lower extremity DVT, pulmonary embolism, lower extremity edema, ascites, atypical cells from cervical evaluation without indication of cervical cancer History of Any Multi-Drug Resistant Organisms: None Reported Additional Past Surgical History / Comment(s): liver biopsy, history of cervical procedures for atypical cervical cells Past Anesthesia/Blood Transfusion Reactions: No Reported Reaction Past Psychological History: Anxiety Smoking Status: Current some day smoker Past Alcohol Use History: None Reported Past Drug Use History: None Reported - Past Family History Father History Unknown: Yes Family Medical History: Cancer, Hypertension Additional Family Medical History / Comment(s): after cancer went to brain Mother History Unknown: Yes Family Medical History: Coronary Artery Disease (CAD), Hyperlipidemia, Hypertension, Myocardial Infarction ([place]) Additional Family Medical History / Comment(s): heart caths with stents Medications and Allergies Home Medications Medication Instructions Recorded Confirmed Type Hydrocodone/Acetaminophen [[place] 1 tab PO Q6HR PRN 01/07/17 02/02/17 History 5-325] Ranitidine HCl [Zantac] 150 mg PO BID 01/07/17 02/02/17 History Rizatriptan Benzoate [Rizatriptan] 10 mg PO DAILY PRN 01/07/17 02/02/17 History Furosemide [Lasix] 20 mg PO DAILY 01/22/17 02/02/17 History Potassium Chloride [Klor-Con 10] 10 meq PO DAILY 02/02/17 02/02/17 History Rivaroxaban [Xarelto] 20 mg PO DAILY 02/02/17 02/02/17 History Allergies Allergy/AdvReac Type Severity Reaction Status Date / Time Penicillins Allergy Swelling Verified 02/02/17 13:14 Surgical - Exam Vital Signs Temp Pulse Resp BP Pulse Ox 96.7 F L 101 H 18 126/85 94 L 02/02/17 12:50 02/02/17 12:50 02/02/17 12:50 02/02/17 12:50 02/02/17 12:50 - General well developed, no distress, no pain, chronically ill - Eyes Right sided gaze present, unable to move eyes past the midline to the left. PERRL - ENT poor intermediate - Neck no masses, no bruits, trachea midline - Respiratory Lung sounds diminished bilaterally with coarse breath sounds present in the bases, right greater than left. Respirations shallow but non-labored. Currently on 2 LPM nasal cannula with oxygen saturation 94%. - Cardiovascular S1, S2 present. Regular rate and rhythm, sinus tach on telemetry. Palpable radial, DP, PT pulses bilaterally. 2-3+ bilateral lower extremity edema present. - Abdomen Tender to percussion Abdomen: soft, distended - Genitourinary Deferred - Rectum Deferred - Integumentary Fingernails and feet very dirty. no rash, no growths - Neurologic Left side completely flaccid. Left facial droop present. Eyes gazed to the right. Extraocular movements not intact, patient unable to follow my finger. - Psychiatric States she doesn't know where she is at, when told she is in the hospital in [place] she stated no she wasn't. When asked the year she said "17 something ". oriented to person, speech is normal Results - Labs 02/03/17 05:34 02/03/17 05:34 Abnormal Lab Results - Last 24 Hours (Table) 02/02/17 02/02/17 02/02/17 Range/Units 12:47 12:49 12:49 WBC 17.1 H (3.8-10.6) k/uL MCH 24.8 L (25.0-35.0) pg MCHC 30.2 L (31.0-37.0) g/dL RDW 18.8 H (11.5-15.5) % Neutrophils # 15.2 H (1.3-7.7) k/uL Lymphocytes # 0.8 L (1.0-4.8) k/uL PT (9.0-12.0) sec INR (<1.2) Sodium (137-145) mmol/L Carbon Dioxide (22-30) mmol/L Glucose (74-99) mg/dL POC Glucose (mg/dL) 107 H (75-99) mg/dL Calcium (8.4-10.2) mg/dL Alkaline Phosphatase (38-126) U/L Total Creatine Kinase 180 H (30-135) U/L CK-MB (CK-2) 2.7 H* (0.0-2.4) ng/mL Troponin I 0.326 H* (0.000-0.034) ng/mL Total Protein (6.3-8.2) g/dL Albumin (3.5-5.0) g/dL Triglycerides (<150) mg/dL LDL Cholesterol, Calc (0-99) mg/dL HDL Cholesterol (40-60) mg/dL 02/02/17 02/02/17 02/02/17 Range/Units 12:49 12:49 23:15 WBC (3.8-10.6) k/uL MCH (25.0-35.0) pg MCHC (31.0-37.0) g/dL RDW (11.5-15.5) % Neutrophils # (1.3-7.7) k/uL Lymphocytes # (1.0-4.8) k/uL PT 15.6 H (9.0-12.0) sec INR 1.6 H (<1.2) Sodium 133 L (137-145) mmol/L Carbon Dioxide (22-30) mmol/L Glucose 100 H (74-99) mg/dL POC Glucose (mg/dL) (75-99) mg/dL Calcium (8.4-10.2) mg/dL Alkaline Phosphatase 295 H (38-126) U/L Total Creatine Kinase 191 H (30-135) U/L CK-MB (CK-2) (0.0-2.4) ng/mL Troponin I 0.380 H* (0.000-0.034) ng/mL Total Protein 5.8 L (6.3-8.2) g/dL Albumin 2.6 L (3.5-5.0) g/dL Triglycerides (<150) mg/dL LDL Cholesterol, Calc (0-99) mg/dL HDL Cholesterol (40-60) mg/dL 02/03/17 02/03/17 02/03/17 Range/Units 05:34 05:34 05:34 WBC 15.3 H (3.8-10.6) k/uL MCH 24.8 L (25.0-35.0) pg MCHC 30.2 L (31.0-37.0) g/dL RDW 18.4 H (11.5-15.5) % Neutrophils # 13.4 H (1.3-7.7) k/uL Lymphocytes # 0.8 L (1.0-4.8) k/uL PT (9.0-12.0) sec INR (<1.2) Sodium 133 L (137-145) mmol/L Carbon Dioxide 21 L (22-30) mmol/L Glucose 54 L (74-99) mg/dL POC Glucose (mg/dL) (75-99) mg/dL Calcium 8.2 L (8.4-10.2) mg/dL Alkaline Phosphatase (38-126) U/L Total Creatine Kinase 180 H (30-135) U/L CK-MB (CK-2) (0.0-2.4) ng/mL Troponin I 0.414 H* (0.000-0.034) ng/mL Total Protein (6.3-8.2) g/dL Albumin (3.5-5.0) g/dL Triglycerides 211 H (<150) mg/dL LDL Cholesterol, Calc 122 H (0-99) mg/dL HDL Cholesterol 21 L (40-60) mg/dL Diabetes panel 02/02/17 02/03/17 Range/Units 12:49 05:34 Sodium 133 L 133 L (137-145) mmol/L Potassium 4.2 3.9 (3.5-5.1) mmol/L Chloride 100 101 (98-107) mmol/L Carbon Dioxide 23 21 L (22-30) mmol/L BUN 9 7 (7-17) mg/dL Creatinine 0.60 0.57 (0.52-1.04) mg/dL Glucose 100 H 54 L (74-99) mg/dL Calcium 8.6 8.2 L (8.4-10.2) mg/dL AST 21 (14-36) U/L ALT 24 (9-52) U/L Alkaline Phosphatase 295 H (38-126) U/L Total Protein 5.8 L (6.3-8.2) g/dL Albumin 2.6 L (3.5-5.0) g/dL Triglycerides 211 H (<150) mg/dL HDL Cholesterol 21 L (40-60) mg/dL Calcium panel 02/02/17 02/03/17 Range/Units 12:49 05:34 Calcium 8.6 8.2 L (8.4-10.2) mg/dL Albumin 2.6 L (3.5-5.0) g/dL Pituitary panel 02/02/17 02/03/17 Range/Units 12:49 05:34 Sodium 133 L 133 L (137-145) mmol/L Potassium 4.2 3.9 (3.5-5.1) mmol/L Chloride 100 101 (98-107) mmol/L Carbon Dioxide 23 21 L (22-30) mmol/L BUN 9 7 (7-17) mg/dL Creatinine 0.60 0.57 (0.52-1.04) mg/dL Glucose 100 H 54 L (74-99) mg/dL Calcium 8.6 8.2 L (8.4-10.2) mg/dL Adrenal panel 02/02/17 02/03/17 Range/Units 12:49 05:34 Sodium 133 L 133 L (137-145) mmol/L Potassium 4.2 3.9 (3.5-5.1) mmol/L Chloride 100 101 (98-107) mmol/L Carbon Dioxide 23 21 L (22-30) mmol/L BUN 9 7 (7-17) mg/dL Creatinine 0.60 0.57 (0.52-1.04) mg/dL Glucose 100 H 54 L (74-99) mg/dL Calcium 8.6 8.2 L (8.4-10.2) mg/dL Total Bilirubin 0.7 (0.2-1.3) mg/dL AST 21 (14-36) U/L ALT 24 (9-52) U/L Alkaline Phosphatase 295 H (38-126) U/L Total Protein 5.8 L (6.3-8.2) g/dL Albumin 2.6 L (3.5-5.0) g/dL - Imaging Chest x-ray: report reviewed, image reviewed EKG: image reviewed Additional studies: Brain CT and had/neck CTA reviewed. Assessment and Plan (1) COPD (chronic obstructive pulmonary disease) Current Visit: Yes Status: Chronic Code(s): J44.9 - CHRONIC OBSTRUCTIVE PULMONARY DISEASE, UNSPECIFIED SNOMED Code(s): 15916096 (2) Tobacco dependence Current Visit: Yes Status: Chronic Code(s): F17.200 - NICOTINE DEPENDENCE, UNSPECIFIED, UNCOMPLICATED SNOMED Code(s): 41819425 (3) Cerebrovascular accident Current Visit: Yes Status: Acute Code(s): I63.9 - CEREBRAL INFARCTION, UNSPECIFIED SNOMED Code(s): 848977688 (4) Hydropneumothorax Current Visit: Yes Status: Acute Code(s): J94.8 - OTHER SPECIFIED PLEURAL CONDITIONS SNOMED Code(s): 74515468 (5) Metastatic adenocarcinoma Current Visit: Yes Status: Acute Code(s): C79.9 - SECONDARY MALIGNANT NEOPLASM OF UNSPECIFIED SITE SNOMED Code(s): 452275902 (6) Ascites Current Visit: No Status: Chronic Code(s): R18.8 - OTHER ASCITES SNOMED Code(s): 638282473 (7) DVT, bilateral lower limbs Current Visit: No Status: Chronic Code(s): I82.403 - ACUTE EMBOLISM AND THOMBOS UNSP DEEP VEINS OF LOW EXTRM, BI SNOMED Code(s): 296736736 (8) Dyspnea Current Visit: No Status: Acute Code(s): R06.00 - DYSPNEA, UNSPECIFIED SNOMED Code(s): 241505106 (9) Pleural effusion Current Visit: No Status: Acute Code(s): J90 - PLEURAL EFFUSION, NOT ELSEWHERE CLASSIFIED SNOMED Code(s): 47676501 (10) Pulmonary emboli Current Visit: No Status: Chronic Code(s): I26.99 - OTHER PULMONARY EMBOLISM WITHOUT ACUTE COR PULMONALE SNOMED Code(s): 20265095 Plan: The patient was seen and examined at the bedside. Chart/diagnostics were reviewed. Appreciate neurology/pulmonary/oncology recommendations. Would continue supportive treatment, recommended smoking cessation. Will discuss the case with Dr. Rojas, further recommendations to follow. Patient has a very poor prognosis. Thank you for this consult. We look forward to working with you in the care of your patient. Time with Patient: Greater than 30
[2017-02-03] MEDS: FUROSEMIDE 20 MG TAB PO SCH (09:36)
[2017-02-03] MEDS: POTASSIUM CHLORIDE ER 10 MEQ TAB.ER.PRT PO SCH (09:37)
[2017-02-03] MEDS: RIVAROXABAN 10 MG TAB PO SCH (09:37)
[2017-02-03] MEDS: FAMOTIDINE 20 MG TAB PO SCH ×2 (09:37→20:43)
[2017-02-03] MEDS: SODIUM CHLORIDE 0.9% 1,000 ML IV SCH (09:45)
--- NOTE | 2017-02-03 11:15 | P.CNNES ---
History of Present Illness Consult date: 02/02/17 History of Present Illness: The patient is a 51-year-old right-handed white female who states that she came to the hospital because of shortness of breath. Apparently she also had some left-sided weakness although she is unclear about this. Asked about weakness she states she was told that she had weakness on one side only family brought her to the emergency room because of weakness on the left side. She does a poor historian. Her main complaint in the emergency room was shortness of breath. She has abdominal distention distention due to situs and has had several paracentesis done. He has a history of bilateral pulmonary embolism which occurred in October 2016. She has been on Xarelto for the embolism. She has also been experiencing lower extremity swelling and has had DVT. The patient has a history of metastatic adenocarcinoma. she is unclear about the duration of her left-sided symptoms and is actually confused which side is weak. She is very poor historian. She had a CAT scan of the brain in the emergency room which was negative. The patient does have a history of liver metastases. She denies any headache . 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, ascites and [place] pleural effusions, bilateral lower extremity DVT, pulmonary embolism, lower extremity edema, ascites, atypical cells from cervical evaluation without indication of cervical cancer History of Any Multi-Drug Resistant Organisms: None Reported Additional Past Surgical History / Comment(s): liver biopsy, history of cervical procedures for atypical cervical cells Past Anesthesia/Blood Transfusion Reactions: No Reported Reaction Past Psychological History: Anxiety Smoking Status: Current some day smoker Past Alcohol Use History: None Reported Past Drug Use History: None Reported - Past Family History Father History Unknown: Yes Family Medical History: Cancer, Hypertension Additional Family Medical History / Comment(s): after cancer went to brain Mother History Unknown: Yes Family Medical History: Coronary Artery Disease (CAD), Hyperlipidemia, Hypertension, Myocardial Infarction ([place]) Additional Family Medical History / Comment(s): heart caths with stents Medications and Allergies Home Medications Medication Instructions Recorded Confirmed Type Hydrocodone/Acetaminophen [[place] 1 tab PO Q6HR PRN 01/07/17 02/02/17 History 5-325] Ranitidine HCl [Zantac] 150 mg PO BID 01/07/17 02/02/17 History Rizatriptan Benzoate [Rizatriptan] 10 mg PO DAILY PRN 01/07/17 02/02/17 History Furosemide [Lasix] 20 mg PO DAILY 01/22/17 02/02/17 History Potassium Chloride [Klor-Con 10] 10 meq PO DAILY 02/02/17 02/02/17 History Rivaroxaban [Xarelto] 20 mg PO DAILY 02/02/17 02/02/17 History Allergies Allergy/AdvReac Type Severity Reaction Status Date / Time Penicillins Allergy Swelling Verified 02/02/17 13:14 Physical Examination - Vital Signs Vital Signs: Vital Signs Temp Pulse Pulse Resp BP BP Pulse Ox 02/02/17 20:00 97.1 F L 108 H 18 122/88 95 02/02/17 18:32 108 H 16 125/88 96 02/02/17 17:32 97.7 F 105 H 18 120/83 92 L 02/02/17 16:32 106 H 16 120/90 93 L 02/02/17 15:35 102 H 14 124/78 91 L 02/02/17 14:35 103 H 18 113/89 95 02/02/17 13:35 103 H 18 120/87 95 02/02/17 13:20 100 18 106/80 95 02/02/17 13:05 101 H 18 126/86 96 02/02/17 12:50 96.7 F L 101 H 18 126/85 94 L Intake and Output 02/02/17 02/02/17 02/02/17 06:59 14:59 22:59 Other: Voiding Method Bedpan Weight 79.832 kg Patient Weight 02/03/17 06:59 Weight 79.832 kg - Constitutional General appearance: average body habitus - EENT EENT: hearing intact - Respiratory Respiratory: respiratory distress - Cardiovascular Cardiovascular: regular rate - Neurologic Mental status: she was awake she was oriented to person and place. There was no a aphasia or dysarthria. Cranial nerve examination: other (pupils were 2 mm she had left-sided neglect she had right gaze deviation she had left facial droop) Speech examination: intact Sensorimotor examination: hemiparesis, hemineglect Detailed motor examination: other (left hemiparesis) - Psychiatric Psychiatric: cooperative Results - Laboratory Findings CBC and BMP: 02/02/17 12:49 02/02/17 12:49 Abnormal Lab Findings: Abnormal Labs 02/02/17 02/02/17 02/02/17 12:49 12:49 12:49 WBC 17.1 H MCH 24.8 L MCHC 30.2 L RDW 18.8 H Neutrophils # 15.2 H Lymphocytes # 0.8 L PT INR Sodium 133 L Glucose 100 H Alkaline Phosphatase 295 H Total Creatine Kinase 180 H CK-MB (CK-2) 2.7 H* Troponin I 0.326 H* Total Protein 5.8 L Albumin 2.6 L 02/02/17 12:49 WBC MCH MCHC RDW Neutrophils # Lymphocytes # PT 15.6 H INR 1.6 H Sodium Glucose Alkaline Phosphatase Total Creatine Kinase CK-MB (CK-2) Troponin I Total Protein Albumin Assessment and Plan (1) Cerebrovascular accident Current Visit: Yes Status: Acute SNOMED Code(s): 811054171 (2) Metastatic adenocarcinoma Current Visit: Yes Status: Acute SNOMED Code(s): 437790914 (3) Ascites Current Visit: No Status: Acute SNOMED Code(s): 795265060 (4) Hydropneumothorax Current Visit: Yes Status: Acute SNOMED Code(s): 81159165 Plan: The patient is a 51 year old woman with a history of metastatic adenocarcinoma, bilateral pulmonary embolisim, and DVT, who presents with shortness of breath and left sided weakness. Her neurologic exam is sugggestive of underalying right cortical stroke. She is a poor historian. Reccomend MRI or CT brain with contrast. The patient is on xarelto for pulmonary embolism. Ct brain shows no acute findings. Reccomend EEG. CT angio of the carotids did not show significant stenosis.
--- NOTE | 2017-02-03 11:24 | P.CNPUL ---
History of Present Illness Consult date: 02/03/17 Requesting physician: Adam Jerez Reason for consult: abnormal CXR/CT Chief complaint: Left-sided weakness History of present illness: This is a very pleasant 51-year-old female patient who follows with Dr. Hadley as her primary care physician. She has a history of chronic obstructive pulmonary disease, chronic and ongoing tobacco dependence, anxiety. 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 She has had issues with ascites and bilateral pleural effusions she has undergone paracentesis. She also has a history of DVT/pulmonary embolism and is status post Sarah filter placement and she remains on Xarelto. She was seen here less than one month ago by Dr. Walter. She did have bilateral pleural effusions then. Ultrasound revealed a right-sided pleural effusion at 9.0 cm and to a lesser extent left pleural effusion. No thoracentesis was performed at that time. She was diuresed and did undergo a paracentesis with approximate 6.4 L of serous fluid removed which improved her pulmonary status. The peritoneal fluid was positive for metastatic carcinoma as well. A barium enema did reveal a 2.7 cm long apple core lesion/colon cancer in the ascending colon. She did improve and was subsequently discharged on 01/12/2017 with plans for palliative treatment. She re-presented to the emergency room yesterday by her family after being found to have left-sided weakness and altered mental status. A computed tomography scan of the brain did not reveal any intracranial abnormalities and no masses or lesions, no acute infarcts. Her chest x-ray revealed a right- sided hydropneumothorax. She is status post right-sided Port-A-Cath placement done approximately a week ago. A CT angiogram of the neck revealed no abnormalities within the internal carotids or the [place]. The right- sided pneumothorax with subsequent chest x-ray suggests may be larger than the originally reported. We're consulted for the same. She is seen on the selective care unit. She is somewhat of a poor historian. She does have some left-sided weakness but is answering yes and no questions appropriately. She is requiring to be fed by the nursing assistants. There is no evidence of aspiration. Speech pathology is in the room. She was quite short of breath while laying flat but is currently maintaining good O2 saturations in the upper 90s on 2 L/m per nasal cannula. Prior to that she was maintaining O2 saturations in the 90s on room air. An ultrasound of the chest is pending. Review of Systems ROS unobtainable: due to mental status Past Medical History Past Medical History: Cancer, COPD, Deep Vein Thrombosis (DVT), Hyperlipidemia, Pulmonary Embolus (PE) Additional Past Medical History / Comment(s): 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, ascites and [place] pleural effusions, bilateral lower extremity DVT, pulmonary embolism, lower extremity edema, ascites, atypical cells from cervical evaluation without indication of cervical cancer History of Any Multi-Drug Resistant Organisms: None Reported Additional Past Surgical History / Comment(s): liver biopsy, history of cervical procedures for atypical cervical cells Past Anesthesia/Blood Transfusion Reactions: No Reported Reaction Past Psychological History: Anxiety Smoking Status: Current some day smoker Past Alcohol Use History: None Reported Past Drug Use History: None Reported - Past Family History Father History Unknown: Yes Family Medical History: Cancer, Hypertension Additional Family Medical History / Comment(s): after cancer went to brain Mother History Unknown: Yes Family Medical History: Coronary Artery Disease (CAD), Hyperlipidemia, Hypertension, Myocardial Infarction ([place]) Additional Family Medical History / Comment(s): heart caths with stents Medications and Allergies Home Medications Medication Instructions Recorded Confirmed Type Hydrocodone/Acetaminophen [[place] 1 tab PO Q6HR PRN 01/07/17 02/02/17 History 5-325] Ranitidine HCl [Zantac] 150 mg PO BID 01/07/17 02/02/17 History Rizatriptan Benzoate [Rizatriptan] 10 mg PO DAILY PRN 01/07/17 02/02/17 History Furosemide [Lasix] 20 mg PO DAILY 01/22/17 02/02/17 History Potassium Chloride [Klor-Con 10] 10 meq PO DAILY 02/02/17 02/02/17 History Rivaroxaban [Xarelto] 20 mg PO DAILY 02/02/17 02/02/17 History Allergies Allergy/AdvReac Type Severity Reaction Status Date / Time Penicillins Allergy Swelling Verified 02/02/17 13:14 Physical Exam Vitals: Vital Signs Temp Pulse Pulse Resp BP BP Pulse Ox 02/03/17 08:00 98.2 F 107 H 18 132/91 97 02/03/17 04:00 98.9 F 115 H 18 127/97 92 L 02/03/17 00:00 97.5 F L 110 H 18 122/83 94 L 02/02/17 20:00 97.1 F L 108 H 18 122/88 95 02/02/17 18:32 108 H 16 125/88 96 02/02/17 17:32 97.7 F 105 H 18 120/83 92 L 02/02/17 16:32 106 H 16 120/90 93 L 02/02/17 15:35 102 H 14 124/78 91 L 02/02/17 14:35 103 H 18 113/89 95 02/02/17 13:35 103 H 18 120/87 95 02/02/17 13:20 100 18 106/80 95 02/02/17 13:05 101 H 18 126/86 96 02/02/17 12:50 96.7 F L 101 H 18 126/85 94 L Intake and Output 02/02/17 02/03/17 02/03/17 22:59 06:59 14:59 Intake Total 800 Output Total 200 200 Balance -200 600 Intake: Intake, IV Titration 800 Amount Sodium Chloride 0.9% 1, 800 000 ml @ 100 mls/hr IV . Q10H [facility] Rx#:[id number] Output: Urine 200 200 Other: Voiding Method Bedpan Bedpan Bedpan Weight 79.8 kg 77 kg GENERAL EXAM: Alert, oriented to person, comfortable in no apparent distress. HEAD: Normocephalic. EYES: Deviated gaze to the right. NOSE: Clear with pink turbinates. THROAT: No erythema or exudates. Poor dentition. NECK: No masses, no JVD. CHEST: No chest wall deformity. Right subclavian Port-A-Cath in place. LUNGS: Few scattered rhonchi, diminished in the bases greater on the right. CVS: S1 and S2 normal with no audible murmur, regular rhythm. ABDOMEN: Slightly distended, normal bowel sounds, no guarding or rigidity. SPINE: No scoliosis or deformity SKIN: No rashes EXTREMITIES: There is significant left-sided weakness. No significant peripheral edema. Peripheral pulses are intact.. Results - Laboratory Findings CBC and BMP: 02/03/17 05:34 02/03/17 05:34 PT/INR, D-dimer PT 15.6 sec (9.0-12.0) H 02/02/17 12:49 INR 1.6 (<1.2) H 02/02/17 12:49 Abnormal lab findings: Abnormal Labs 02/02/17 02/02/17 02/02/17 12:47 12:49 12:49 WBC 17.1 H MCH 24.8 L MCHC 30.2 L RDW 18.8 H Neutrophils # 15.2 H Lymphocytes # 0.8 L PT INR Sodium Carbon Dioxide Glucose POC Glucose (mg/dL) 107 H Calcium Alkaline Phosphatase Total Creatine Kinase 180 H CK-MB (CK-2) 2.7 H* Troponin I 0.326 H* Total Protein Albumin Triglycerides LDL Cholesterol, Calc HDL Cholesterol 02/02/17 02/02/17 02/02/17 12:49 12:49 23:15 WBC MCH MCHC RDW Neutrophils # Lymphocytes # PT 15.6 H INR 1.6 H Sodium 133 L Carbon Dioxide Glucose 100 H POC Glucose (mg/dL) Calcium Alkaline Phosphatase 295 H Total Creatine Kinase 191 H CK-MB (CK-2) Troponin I 0.380 H* Total Protein 5.8 L Albumin 2.6 L Triglycerides LDL Cholesterol, Calc HDL Cholesterol 02/03/17 02/03/17 02/03/17 05:34 05:34 05:34 WBC 15.3 H MCH 24.8 L MCHC 30.2 L RDW 18.4 H Neutrophils # 13.4 H Lymphocytes # 0.8 L PT INR Sodium 133 L Carbon Dioxide 21 L Glucose 54 L POC Glucose (mg/dL) Calcium 8.2 L Alkaline Phosphatase Total Creatine Kinase 180 H CK-MB (CK-2) Troponin I 0.414 H* Total Protein Albumin Triglycerides 211 H LDL Cholesterol, Calc 122 H HDL Cholesterol 21 L - Diagnostic Findings Chest x-ray: image reviewed Assessment and Plan Assessment: Impression: #1 Altered mental status with left-sided weakness and gaze deviated to the right side. Initial computed tomography scan of the brain revealed no acute intracranial abnormalities. #2 Right sided hydropneumothorax. Status post right-sided Port-A-Cath placement approximately one week ago. #3 Bilateral pleural effusions right greater than left. #4 Ascites with recent paracentesis was 6.4 L fluid removed. Positive for adenocarcinoma. #5 Metastatic stage IV cancer of the gastrointestinal/biliary origin with secondary omental involvement and ascites and hepatic hepatic metastasis. Most likely pulmonary metastasis as the patient does have multiple pulmonary nodules that are subcentimeter scattered throughout the lungs and subsequent bilateral pleural effusions. #6 Recent pulmonary embolism/DVT, anticoagulated with Xarelto. #7 Cervical dysplasia. #8 Tachycardia with troponin elevation. Echocardiogram pending. Plan: The patient was seen and evaluated by Dr. Matthew. Her chest x-rays and labs were reviewed. There is a right-sided hydropneumothorax along with pleural effusion.. We will await ultrasound of the chest to determine if there is any need for palliative thoracentesis. She is currently maintaining good O2 saturations in the 90s on 2 L/m per nasal cannula. Neurology consult is pending. We'll continue her current medications. Her overall prognosis is quite poor and guarded. We'll continue to follow. I, the cosigning physician, have performed a history and physical examination on the patient. Lung sounds are diminished in the bilateral bases right greater than left. Maintaining good O2 saturations in the 90s on 2 L/m per nasal cannula. Ultrasound is pending. We'll determine if a thoracentesis is warranted. I have discussed the assessment and plan of care with my nurse practitioner, Marianna Cortes. I attest the above documented note as dictated by her. Time with Patient: Greater than 30
--- NOTE | 2017-02-03 11:56 | ECHOF ---
Referral Reason:Thrombus MEASUREMENTS -------- HEIGHT: 157.5 cm WEIGHT: 79.8 kg BP: RVIDd: 4.3 cm (< 3.3) IVSd: 0.8 cm (0.6 - 1.1) LVIDd: 3.6 cm (3.9 - 5.3) LVPWd: 1.0 cm (0.6 - 1.1) IVSs: 1.1 cm LVIDs: 1.9 cm LVPWs: 1.3 cm LAESV Index (A-L): 10.24 ml/m Ao Diam: 3.1 cm (2.0 - 3.7) AV Cusp: 1.8 cm (1.5 - 2.6) LA Diam: 2.9 cm (2.7 - 3.8) MV E Jony: 0.49 m/s MV DecT: 356 ms MV A Jony: 0.70 m/s MV E/A Ratio: 0.70 RAP: 5.00 mmHg RVSP: 68.94 mmHg FINDINGS -------- Sinus rhythm. Resting tachycardia (HR>100bpm). This was a technically adequate study. The left ventricular size is normal. Left ventricular wall thickness is normal. Overall left vent ricular systolic function is normal with, an EF between 55 - 60 %. The right ventricle is severely enlarged. The right ventricular systolic function is normal. Normal LA size by volume 22+/-6 ml/m2. RA appears enlarged. There is mild aortic valve sclerosis. There is mild aortic regurgitation. The mitral valve leaflets are mildly thickened. Mild mitral regurgitation is present. Moderate tricuspid regurgitation present. There is moderate to severe pulmonary hypertension. The right ventricular systolic pressure, as measured by Doppler, is 68.94mmHg. Trace/mild (physiologic) pulmonic regurgitation. The aortic root size is normal. IVC Not well visulized. There is no pericardial effusion. CONCLUSIONS -------- 1. Resting tachycardia (HR>100bpm). 2. This was a technically adequate study. 3. Left ventricular wall thickness is normal. 4. Overall left ventricular systolic function is normal with, an EF between 55 - 60 %. 5. The right ventricle is severely enlarged. 6. Normal LA size by volume 22+/-6 ml/m2. 7. RA appears enlarged. 8. There is mild aortic valve sclerosis. 9. There is mild aortic regurgitation. 10. The mitral valve leaflets are mildly thickened. 11. Mild mitral regurgitation is present. 12. Moderate tricuspid regurgitation present. 13. There is moderate to severe pulmonary hypertension. 14. Trace/mild (physiologic) pulmonic regurgitation. 15. The aortic root size is normal. 16. IVC Not well visulized. 17. There is no pericardial effusion. BETTING CLERKS: Alfred Saab RDCS
--- NOTE | 2017-02-03 11:59 | US ---
EXAMINATION TYPE: US chest DATE OF EXAM: 02/03/2017 COMPARISON: US and CXR CLINICAL HISTORY: rt effusion. Right pleural effusion EXAM MEASUREMENTS: Right Pleural Effusion fluid pocket: 10.9 cm Right skin to fluid thickness: 3.7 cm Right side marked for possible thoracentesis outside the dept. Pulmonologists are able to review the images in the patient?s EMR. IMPRESSIONS: Right pleural effusion
[2017-02-03] MEDS ORDERED: IPRATROPIUM-ALBUTEROL 3 ML NEB INHALATION PRN (12:29)
--- NOTE | 2017-02-03 13:29 | US ---
EXAMINATION TYPE: US carotid duplex BILAT DATE OF EXAM: 02/03/2017 COMPARISON: NONE CLINICAL HISTORY: Stenosis. CVA Due to pt's body position, left carotid system imaged first EXAM MEASUREMENTS: RIGHT: Peak Systolic Velocity (PSV) cm/sec ----- Right CCA: 74.6 ----- Right ICA: 58.4 ----- Right ECA: 71.4 ICA/CCA ratio: 0.8 RIGHT: End Diastole cm/sec ----- Right CCA: 25.1 ----- Right ICA: 15.6 ----- Right ECA: 10.4 LEFT: Peak Systolic Velocity (PSV) cm/sec ----- Left CCA: 61.0 ----- Left ICA: 98.2 ----- Left ECA: 69.7 ICA/CCA ratio: 1.6 LEFT: End Diastole cm/sec ----- Left CCA: 20.9 ----- Left ICA: 33.5 ----- Left ECA: 14.7 VERTEBRALS (direction of flow): Right Vertebral: Antegrade Left Vertebral: Antegrade No significant stenosis seen, pt somewhat uncooperative during exam, large bandage on right side of n damien made proximal portion of CCA difficult to visualize IMPRESSION: No evidence for hemodynamically significant stenosis. Criteria for Assigning % of Stenosis / Diameter reduction (Estimation based on the indirect measurements of the internal carotid artery velocities (ICA PSV). 1. Normal (no stenosis)=ICA PSV < 125 cm/s: ratio < 2.0: ICA EDV<40 cm/s. 2. Less than 50% stenosis=ICA PSV < 125 cm/s: ratio < 2.0: ICA EDV<40 cm/s. 3. 50 to 69% stenosis=ICA PSV of 125 to 230 cm/s: ration 2.0 ? 4.0: ICA EDV 40-100 cm/s. 4. Greater than 70% stenosis to near occlusion= ICA PSV > 230 cm/s: ratio > 4.0: ICA EDV > 100 cm/s. 5. Near occlusion= ICA PSV velocities may be low or undetectable: variable ratio and ICA EDV. 6. Total occlusion=unable to detect flow.
[2017-02-03] MEDS: SODIUM CHLORIDE 0.9% 500 ML IV SCH (13:54)
--- NOTE | 2017-02-03 14:39 | CT ---
EXAMINATION TYPE: CT brain wo/w con DATE OF EXAM: 02/03/2017 COMPARISON: 02/02/2017 HISTORY: CVA CT DLP: 2035mGycm CONTRAST: CT scan of the head is performed without and with IV Contrast, patient injected with 100 mL of Omnipa que 300. Unenhanced followed by contrast enhanced CT of the brain is submitted for evaluation. The ventricles are midline. Age-related atrophic and chronic small vessel ischemic change. There is no evidence for intracranial hemorrhage or extra-axial collection. No mass effects are identified. Visualized bony calvarium is intact. Contrast is administered and no enhancing lesions are detected. No pathologic enhancement is identified. If symptoms persist consider MRI. IMPRESSION: 1. No evidence for enhancing intracranial lesion. 2. No evidence for sulcal effacement or intracranial hemorrhage. 3. Age-related atrophic and chronic small vessel ischemic change.
--- NOTE | 2017-02-03 18:06 | P.CONS ---
History of Present Illness - Reason for Consult Consult date: 02/03/17 oncology care Requesting physician: Patrick Joel - Chief Complaint AMS, left sided deficit - History of Present Illness Patient is a very pleasant 51-year-old female patient of Dr. De La Vega, who presented to PCP Dr. Khoury with c/o increasing abdominal pain, distension and lower extremity swelling for few months, U/S and CT revealed diffuse liver metastatic lesions and ascites, PE was incidentally found-she was subsequently found to have BLE DTVs. She was admitted to [facility], had CT-guided biopy of liver lesion on 11/24/16, path revealing metastatic moderately -differentiated adenocarcinoma, consistent with GI primary, all tumor markers- CA 19-9 and CEA-were elevated. Pt was then admitted to [facility] with progressive abdominal distention, paracentesis performed was positive for metastatic adenocarcinoma. Colonscopy was unable to be completed due to inability to pass scope, barium enema showed apple core lesion in ascending colon. Pt has had 2 palliative paracentesis, plan of care was palliative chemotherapy to start soon, she just had port placed. Patient is unable to tell me much about the events that brought her to the hospital, she knows that her family could not control her, she was aware that she was not thinking clearly, she is not aware that her left side of her body is not functioning. Denies SNYDER, dizziness, nausea, difficulty breathing, abdominal distention is bothersome, she does not recall her last bowel movement , she denies any current pain. Review of Systems 10 point ROS as stated in HPI Past Medical History Past Medical History: Cancer, COPD, Deep Vein Thrombosis (DVT), Hyperlipidemia, Pulmonary Embolus (PE) Additional Past Medical History / Comment(s): 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, ascites and [place] pleural effusions, bilateral lower extremity DVT, pulmonary embolism, lower extremity edema, ascites, atypical cells from cervical evaluation without indication of cervical cancer History of Any Multi-Drug Resistant Organisms: None Reported Additional Past Surgical History / Comment(s): liver biopsy, history of cervical procedures for atypical cervical cells Past Anesthesia/Blood Transfusion Reactions: No Reported Reaction Past Psychological History: Anxiety Smoking Status: Current some day smoker Past Alcohol Use History: None Reported Past Drug Use History: None Reported - Past Family History Father History Unknown: Yes Family Medical History: Cancer, Hypertension Additional Family Medical History / Comment(s): after cancer went to brain Mother History Unknown: Yes Family Medical History: Coronary Artery Disease (CAD), Hyperlipidemia, Hypertension, Myocardial Infarction ([place]) Additional Family Medical History / Comment(s): heart caths with stents Medications and Allergies Home Medications Medication Instructions Recorded Confirmed Type Hydrocodone/Acetaminophen [[place] 1 tab PO Q6HR PRN 01/07/17 02/02/17 History 5-325] Ranitidine HCl [Zantac] 150 mg PO BID 01/07/17 02/02/17 History Rizatriptan Benzoate [Rizatriptan] 10 mg PO DAILY PRN 01/07/17 02/02/17 History Furosemide [Lasix] 20 mg PO DAILY 01/22/17 02/02/17 History Potassium Chloride [Klor-Con 10] 10 meq PO DAILY 02/02/17 02/02/17 History Rivaroxaban [Xarelto] 20 mg PO DAILY 02/02/17 02/02/17 History Allergies Allergy/AdvReac Type Severity Reaction Status Date / Time Penicillins Allergy Swelling Verified 02/02/17 13:14 Physical Exam Vitals: Vital Signs Temp Pulse Resp BP Pulse Ox 02/03/17 16:00 97 F L 106 H 18 128/86 99 02/03/17 12:00 101 H 18 125/86 98 02/03/17 08:00 98.2 F 107 H 18 132/91 97 02/03/17 04:00 98.9 F 115 H 18 127/97 92 L 02/03/17 00:00 97.5 F L 110 H 18 122/83 94 L 02/02/17 20:00 97.1 F L 108 H 18 122/88 95 02/02/17 18:32 108 H 16 125/88 96 Intake and Output 02/03/17 02/03/17 02/03/17 06:59 14:59 22:59 Intake Total 800 600 Output Total 200 Balance 600 600 Intake: IV 80 0.9 80 Intake, IV Titration 800 Amount Sodium Chloride 0.9% 1, 800 000 ml @ 100 mls/hr IV . Q10H [facility] Rx#:[id number] Oral 520 Output: Urine 200 Other: Voiding Method Bedpan Bedpan Bedpan # Voids 2 Weight 77 kg - Constitutional General appearance: average body habitus, cooperative, no acute distress - EENT pupils 4mm, PERRL Eyes: anicteric sclerae - Neck Neck: no lymphadenopathy - Respiratory Respiratory: bilateral: diminished - Cardiovascular Heart sounds: normal: S1, S2 Abnormal Heart Sounds: systolic murmur leg Peripheral Edema: bilateral: 2+ (mid calf distal) - Gastrointestinal General gastrointestinal: no absent bowel sounds, no decreased bowel sounds, distended, no hepatomegaly, no hyperactive bowel sounds, normal bowel sounds, no organomegaly, no rigid, no scaphoid, soft, no splenomegaly, no tenderness, no umbilical hernia, no ventral hernia - Integumentary Integumentary: pale - Musculoskeletal Musculoskeletal: left sided weakness - Psychiatric expressive aphasia, given time pt does respond appropriately Psychiatric: A&O x's 3, appropriate affect, intact judgment & insight Results CBC & Chem 7: 02/03/17 05:34 02/03/17 05:34 Labs: Abnormal Lab Results - Last 24 Hours (Table) 02/02/17 02/02/17 02/03/17 Range/Units 12:47 23:15 05:34 WBC (3.8-10.6) k/uL MCH (25.0-35.0) pg MCHC (31.0-37.0) g/dL RDW (11.5-15.5) % Neutrophils # (1.3-7.7) k/uL Lymphocytes # (1.0-4.8) k/uL Sodium 133 L (137-145) mmol/L Carbon Dioxide 21 L (22-30) mmol/L Glucose 54 L (74-99) mg/dL POC Glucose (mg/dL) 107 H (75-99) mg/dL Calcium 8.2 L (8.4-10.2) mg/dL Total Creatine Kinase 191 H (30-135) U/L Troponin I 0.380 H* (0.000-0.034) ng/mL Triglycerides 211 H (<150) mg/dL LDL Cholesterol, Calc 122 H (0-99) mg/dL HDL Cholesterol 21 L (40-60) mg/dL 02/03/17 02/03/17 Range/Units 05:34 05:34 WBC 15.3 H (3.8-10.6) k/uL MCH 24.8 L (25.0-35.0) pg MCHC 30.2 L (31.0-37.0) g/dL RDW 18.4 H (11.5-15.5) % Neutrophils # 13.4 H (1.3-7.7) k/uL Lymphocytes # 0.8 L (1.0-4.8) k/uL Sodium (137-145) mmol/L Carbon Dioxide (22-30) mmol/L Glucose (74-99) mg/dL POC Glucose (mg/dL) (75-99) mg/dL Calcium (8.4-10.2) mg/dL Total Creatine Kinase 180 H (30-135) U/L Troponin I 0.414 H* (0.000-0.034) ng/mL Triglycerides (<150) mg/dL LDL Cholesterol, Calc (0-99) mg/dL HDL Cholesterol (40-60) mg/dL CT Scan - head: report reviewed Assessment and Plan (1) DVT, bilateral lower limbs Narrative/Plan: continue Xarelto at this time. Current Visit: No Status: Chronic Code(s): I82.403 - ACUTE EMBOLISM AND THOMBOS UNSP DEEP VEINS OF LOW EXTRM, BI SNOMED Code(s): 273471912 (2) Pulmonary emboli Current Visit: No Status: Chronic Code(s): I26.99 - OTHER PULMONARY EMBOLISM WITHOUT ACUTE COR PULMONALE SNOMED Code(s): 88046113 (3) Metastatic adenocarcinoma Narrative/Plan: Further imaging of the head as been done awaiting neurology workup and recommendations and treatment plan. Patient just had her port placed, she has not had her first cycle of chemotherapy. Hopefully patient will be able to recover enough from CVA to move forward with some palliative treatment, this will be determined based on her hospital course. Current Visit: Yes Status: Acute Priority: High Code(s): C79.9 - SECONDARY MALIGNANT NEOPLASM OF UNSPECIFIED SITE SNOMED Code(s): 096656985 (4) Malignant ascites Narrative/Plan: Will cont to monitor, pt may require palliative paracentesis. Current Visit: Yes Status: Chronic Priority: Medium Code(s): R18.0 - MALIGNANT ASCITES SNOMED Code(s): 626648164
--- NOTE | 2017-02-03 19:49 | P.HPIM ---
History of Present Illness H&P Date: 02/03/17 Chief Complaint: Left Sided weakness A 51-year-old female who resented to the ER on 02/02/2017 with cc of progressive left side weakness and confusion, medical history of recent biopsy proven adenocarcinoma colon cancer with mets to the liver, also recent admission for PE and DVT which she is anticoagulated status post Sarah filter placement, along with bilateral pleural effusions in which she has undergone paracentesis x2 .she had a recen admission last month for SOB in [facility] she had a theraputic Paracentesis She did improve and was subsequently discharged on 01/12/2017 with plans for palliative treatment. during this admission A computed tomography scan of the brain did not reveal any intracranial abnormalities and no masses or lesions, no acute infarcts. Her chest x-ray revealed a right-sided hydropneumothorax. She is status post right- sided Port-A-Cath placement done approximately a week ago. A CT angiogram of the neck revealed no abnormalities within the internal carotids or the [place] of [place]. she continued to have worsening neuro sgns in the form of prgessive left sided wekaness to the point of flaccidity, a MRI of the brain could not be done 2/2 chemo port not being compatible. throughout the day it was noted by bursing staff that she has been having increasing confusions, she is to the point of complete left sided neglect w/ left sided homonymous Hemianopsia. she was seen by speech therapy and passed swallow eval. Sh mirta is sitting upright in bed, She made is clear that she would like to be full code. Neuro, pulmonary, surgery, on board , Review of Systems Constitutional: Reports chronic headaches Eyes: left loss of peripheral vision Ears, nose, mouth and throat: Reports headache Cardiovascular: Reports shortness of breath, Denies chest pain, Denies dyspnea on exertion, Denies lightheadedness, Denies paroxysmal nocturnal dyspnea, Denies rapid heart beat Respiratory: Reports snoring, Denies cough, Denies cough with sputum, Denies dyspnea, Denies home oxygen Gastrointestinal: Denies abdominal pain, Denies diarrhea, Denies nausea, Denies vomiting Musculoskeletal: Reports myalgias, Denies low back pain, Denies muscle weakness , Denies neck pain, Denies neck stiffness Neurological: Reports change in mentation, Reports change in speech, Reports gait dysfunction, Reports headaches, Reports loss of vision, Reports sensory deficit, Denies seizures Past Medical History Past Medical History: Cancer, COPD, Deep Vein Thrombosis (DVT), Hyperlipidemia, Pulmonary Embolus (PE) Additional Past Medical History / Comment(s): 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, ascites and [place] pleural effusions, bilateral lower extremity DVT, pulmonary embolism, lower extremity edema, ascites, atypical cells from cervical evaluation without indication of cervical cancer History of Any Multi-Drug Resistant Organisms: None Reported Additional Past Surgical History / Comment(s): liver biopsy, history of cervical procedures for atypical cervical cells Past Anesthesia/Blood Transfusion Reactions: No Reported Reaction Past Psychological History: Anxiety Smoking Status: Current some day smoker Past Alcohol Use History: None Reported Past Drug Use History: None Reported - Past Family History Father History Unknown: Yes Family Medical History: Cancer, Hypertension Additional Family Medical History / Comment(s): after cancer went to brain Mother History Unknown: Yes Family Medical History: Coronary Artery Disease (CAD), Hyperlipidemia, Hypertension, Myocardial Infarction ([place]) Additional Family Medical History / Comment(s): heart caths with stents Medications and Allergies Home Medications Medication Instructions Recorded Confirmed Type Hydrocodone/Acetaminophen [[place] 1 tab PO Q6HR PRN 01/07/17 02/02/17 History 5-325] Ranitidine HCl [Zantac] 150 mg PO BID 01/07/17 02/02/17 History Rizatriptan Benzoate [Rizatriptan] 10 mg PO DAILY PRN 01/07/17 02/02/17 History Furosemide [Lasix] 20 mg PO DAILY 01/22/17 02/02/17 History Potassium Chloride [Klor-Con 10] 10 meq PO DAILY 02/02/17 02/02/17 History Rivaroxaban [Xarelto] 20 mg PO DAILY 02/02/17 02/02/17 History Allergies Allergy/AdvReac Type Severity Reaction Status Date / Time Penicillins Allergy Swelling Verified 02/02/17 13:14 Physical Exam Vitals: Vital Signs Temp Pulse Resp BP Pulse Ox 02/03/17 16:00 97 F L 106 H 18 128/86 99 02/03/17 12:00 101 H 18 125/86 98 02/03/17 08:00 98.2 F 107 H 18 132/91 97 02/03/17 04:00 98.9 F 115 H 18 127/97 92 L 02/03/17 00:00 97.5 F L 110 H 18 122/83 94 L 02/02/17 20:00 97.1 F L 108 H 18 122/88 95 Intake and Output 02/03/17 02/03/17 02/03/17 06:59 14:59 22:59 Intake Total 800 600 100 Output Total 200 Balance 600 600 100 Intake: IV 80 0.9 80 Intake, IV Titration 800 Amount Sodium Chloride 0.9% 1, 800 000 ml @ 100 mls/hr IV . Q10H [facility] Rx#:[id number] Oral 520 100 Output: Urine 200 Other: Voiding Method Bedpan Bedpan Bedpan # Voids 2 Weight 77 kg - Constitutional General appearance: cooperative - EENT Eyes: abnormal pupil, no EOMI, PERRLA - Neck Neck: no lymphadenopathy, no stridor - Respiratory Respiratory: bilateral: diminished, dullness, other (pursing lips ), negative: wheezing - Cardiovascular Heart sounds: normal: S1, S2 Abnormal Heart Sounds: no systolic murmur, no diastolic murmur - Neurologic Compkete left sided neglect, Loss of sensory and motor function on upper left extremity and lower left extremity, Plantar reflex on left is up going and retract at the hip on the right. there is right facial droop with dysartheria present. Patient eye dont cross the mid line on left later gaze. Neurologic: focal deficits - Musculoskeletal Musculoskeletal: left sided weakness - Psychiatric Psychiatric: A&O x's 3, no appropriate affect (exhibit depressed mood ), intact judgment & insight Results CBC & Chem 7: 02/03/17 05:34 02/03/17 05:34 Labs: Abnormal Lab Results - Last 24 Hours (Table) 02/02/17 02/02/17 02/03/17 Range/Units 12:47 23:15 05:34 WBC (3.8-10.6) k/uL MCH (25.0-35.0) pg MCHC (31.0-37.0) g/dL RDW (11.5-15.5) % Neutrophils # (1.3-7.7) k/uL Lymphocytes # (1.0-4.8) k/uL Sodium 133 L (137-145) mmol/L Carbon Dioxide 21 L (22-30) mmol/L Glucose 54 L (74-99) mg/dL POC Glucose (mg/dL) 107 H (75-99) mg/dL Calcium 8.2 L (8.4-10.2) mg/dL Total Creatine Kinase 191 H (30-135) U/L Troponin I 0.380 H* (0.000-0.034) ng/mL Triglycerides 211 H (<150) mg/dL LDL Cholesterol, Calc 122 H (0-99) mg/dL HDL Cholesterol 21 L (40-60) mg/dL 02/03/17 02/03/17 Range/Units 05:34 05:34 WBC 15.3 H (3.8-10.6) k/uL MCH 24.8 L (25.0-35.0) pg MCHC 30.2 L (31.0-37.0) g/dL RDW 18.4 H (11.5-15.5) % Neutrophils # 13.4 H (1.3-7.7) k/uL Lymphocytes # 0.8 L (1.0-4.8) k/uL Sodium (137-145) mmol/L Carbon Dioxide (22-30) mmol/L Glucose (74-99) mg/dL POC Glucose (mg/dL) (75-99) mg/dL Calcium (8.4-10.2) mg/dL Total Creatine Kinase 180 H (30-135) U/L Troponin I 0.414 H* (0.000-0.034) ng/mL Triglycerides (<150) mg/dL LDL Cholesterol, Calc (0-99) mg/dL HDL Cholesterol (40-60) mg/dL Thrombosis Risk Factor Assmnt - Choose All That Apply Each Factor Represents 1 point: Swollen legs (current) Each Risk Factor Represents 2 Points: Malignancy Each Risk Factor Represents 3 Points: History of DVT/PE Each Risk Factor Represents 5 Points: Stroke (< 1 month) Thrombosis Risk Factor Assessment Total Risk Factor Score: 11 Thrombosis Risk Factor Assessment Level: High Risk Assessment and Plan Assessment: #1 Altered mental status with left-sided hemiparesis and neglect Likely CVA vs Brain mets. Initial computed tomography scan of the brain revealed no acute intracranial abnormalities. unable to obtain MRI 2/2 incompalibilties of chemo port. Neuro on board await rec, patient is on AC and Ct head did not show any acute transformation, Patient is on fall/ asp/ seizure precaution, Continue with Neuro checks q2 and obtain stat CT head with any further rapid decline in neuro exam. #2 acute hypoxic respiratory failure 2/2 Right sided hydropneumothorax from malignant effusion. Status post right-sided Port-A-Cath placement approximately one week ago. pulmonary on board and likely to preform therapeutic thorcentesis once U/S is read, Continue with supplemntal O2, Respiratory therapy to eval and assist with breathing tx. #3 NSTEMI type 2 with elevated troponin 2/2 demand ischemia from tachycardia and known PE,- Cardiology on board and rec appreciated #4 Metastatic stage IV colon cancer with hepatic metastasis. Most likely pulmonary metastasis as the patient does have multiple pulmonary nodules that are subcentimeter scattered throughout the lungs and subsequent bilateral pleural effusions. [place] on board and awaiting results of neuro evaluation and outcome to determin to proceed with chemo for palliative approach #5 Recent pulmonary embolism/DVT, anticoagulated with Xarelto. 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
--- NOTE | 2017-02-03 20:18 | P.PN ---
Subjective Progress Note Date: 02/03/17 The patient is a 51-year-old woman who presents to the hospital with acute left- sided weakness yesterday. The patient has history of metastatic adenocarcinoma. The patient had a CT today with contrast which did not reveal any acute abnormality. Medically the patient has had a right subcortical infarct. She is doing somewhat better in her mentation today but her left- sided weakness has progressed. She is on Xarelto . Recommend speech to reassess swallowing. Recommend follow-up CT in 24 hours. She is unable to have MRI done. Continue PT OT Objective - Vital Signs Vital signs: Vital Signs Temp 97 F L 02/03/17 16:00 Pulse 106 H 02/03/17 16:00 Resp 18 02/03/17 16:00 BP 128/86 02/03/17 16:00 Pulse Ox 99 02/03/17 16:00 Intake & Output 02/03/17 02/03/17 02/04/17 06:59 18:59 06:59 Intake Total 800 700 Output Total 400 Balance 400 700 Weight 77 kg Intake: IV 80 0.9 80 Intake, IV Titration 800 Amount Sodium Chloride 0.9% 1, 800 000 ml @ 100 mls/hr IV . Q10H [facility] Rx#:[id number] Oral 620 Output: Urine 400 Other: Voiding Method Bedpan Bedpan # Voids 2 - Labs CBC & Chem 7: 02/03/17 05:34 02/03/17 05:34 Labs: Abnormal Lab Results - Last 24 Hours (Table) 02/02/17 02/02/17 02/03/17 Range/Units 12:47 23:15 05:34 WBC (3.8-10.6) k/uL MCH (25.0-35.0) pg MCHC (31.0-37.0) g/dL RDW (11.5-15.5) % Neutrophils # (1.3-7.7) k/uL Lymphocytes # (1.0-4.8) k/uL Sodium 133 L (137-145) mmol/L Carbon Dioxide 21 L (22-30) mmol/L Glucose 54 L (74-99) mg/dL POC Glucose (mg/dL) 107 H (75-99) mg/dL Calcium 8.2 L (8.4-10.2) mg/dL Total Creatine Kinase 191 H (30-135) U/L Troponin I 0.380 H* (0.000-0.034) ng/mL Triglycerides 211 H (<150) mg/dL LDL Cholesterol, Calc 122 H (0-99) mg/dL HDL Cholesterol 21 L (40-60) mg/dL 02/03/17 02/03/17 Range/Units 05:34 05:34 WBC 15.3 H (3.8-10.6) k/uL MCH 24.8 L (25.0-35.0) pg MCHC 30.2 L (31.0-37.0) g/dL RDW 18.4 H (11.5-15.5) % Neutrophils # 13.4 H (1.3-7.7) k/uL Lymphocytes # 0.8 L (1.0-4.8) k/uL Sodium (137-145) mmol/L Carbon Dioxide (22-30) mmol/L Glucose (74-99) mg/dL POC Glucose (mg/dL) (75-99) mg/dL Calcium (8.4-10.2) mg/dL Total Creatine Kinase 180 H (30-135) U/L Troponin I 0.414 H* (0.000-0.034) ng/mL Triglycerides (<150) mg/dL LDL Cholesterol, Calc (0-99) mg/dL HDL Cholesterol (40-60) mg/dL Assessment and Plan (1) Cerebrovascular accident Current Visit: Yes Status: Acute SNOMED Code(s): 606466620 (2) Metastatic adenocarcinoma Current Visit: Yes Status: Acute Priority: High SNOMED Code(s): 763801268 (3) Ascites Current Visit: No Status: Chronic SNOMED Code(s): 496552733 (4) Hydropneumothorax Current Visit: Yes Status: Acute SNOMED Code(s): 22153272
[2017-02-04 05:59] LABS: Glucose,Whole Blood 97 mg/dL (75-99)
[2017-02-04 06:37] LABS: Anisocytosis Slight; CH 24.4; CHCM 29.1; HCT 39.9 % (34.0-46.0); HDW 2.86; HGB 11.6 gm/dL (11.4-16.0); Hypochromasia Marked; MCH 24.5 pg (25.0-35.0); MCHC 29.2 g/dL (31.0-37.0); Mean Platelet Volume 7.3; RBC 4.75 m/uL (3.80-5.40); RDW 16.9 % (11.5-15.5); WBC 13.3 k/uL (3.8-10.6)
[2017-02-04 06:46] LABS: ALT 28 U/L (9-52); AST 24 U/L (14-36); Alkaline Phosphatase 251 U/L (38-126); Anion Gap 9 mmol/L; Blood Urea Nitrogen 7 mg/dL (7-17); Calcium 8.2 mg/dL (8.4-10.2); Carbon Dioxide 24 mmol/L (22-30); Chloride 101 mmol/L (98-107); Glucose 85 mg/dL (74-99); Magnesium 1.9 mg/dL (1.6-2.3); Non-African American GFR(MDRD) >60 (>60 ml/min/1.73 sqM); Phosphorus 3.8 mg/dL (2.5-4.5); Potassium 4.1 mmol/L (3.5-5.1); Sodium 134 mmol/L (137-145); Total Bilirubin 0.6 mg/dL (0.2-1.3); Total Protein 5.5 g/dL (6.3-8.2)
--- NOTE | 2017-02-04 07:23 | P.PN ---
Subjective Progress Note Date: 02/04/17 Principal diagnosis: Right-sided hydropneumothorax. Right subcortical CVA. History of pancreaticobiliary adenocarcinoma with liver metastasis with recent port placement for palliative chemotherapy, recent diagnosis of bilateral pulmonary embolism and DVTs with IVC filter placed, ascites status post paracentesis 2, COPD, current tobacco dependence. Patient's currently laying in bed in no acute distress. Denies pain, states she is still short of breath when asked. No acute process demonstrated on repeat CT yesterday, however is felt patient had a sub-cortical infarct per neurology. Left-sided weakness has not resolved. Per nursing, she did have an episode of choking after consuming water last night, was made nothing by mouth for swallow evaluation today. Objective - Vital Signs Vital signs: Vital Signs Temp 96.4 F L 02/04/17 04:00 Pulse 112 H 02/04/17 04:00 Resp 18 02/04/17 04:00 BP 121/86 02/04/17 04:00 Pulse Ox 93 L 02/04/17 04:00 Intake & Output 02/03/17 02/04/17 02/04/17 18:59 06:59 18:59 Intake Total 700 260 Balance 700 260 Weight 76 kg Intake: IV 80 0.9 80 Intake, IV Titration 160 Amount Sodium Chloride 0.9% 1, 160 000 ml @ 20 mls/hr IV . Q24H [facility] Rx#:[id number] Oral 620 100 Other: Voiding Method Bedpan Diaper # Voids 2 1 # Bowel Movements 1 - Constitutional General appearance: Present: cooperative, no acute distress - EENT EENT Comment(s): Right-sided gaze present - Respiratory Details: Lungs sounds diminished bilaterally with coarse breath sounds in the bases. Respirations shallow but even and nonlabored. Currently on 2 L nasal cannula with oxygen saturation 93%. - Cardiovascular Details: S1, S2 present. Regular rate and rhythm, sinus tach on telemetry. Palpable radial, DP, PT pulses bilaterally. Trace bilateral lower extremity edema still present. - Gastrointestinal Gastrointestinal Comment(s): Abdomen soft, nontender, nondistended. Active bowel sounds 4 quadrants. Currently nothing by mouth until seen by speech therapy for swallowing evaluation. - Genitourinary Genitourinary Comment(s): Continues to void, occasionally incontinent of urine. - Neurologic Neurologic Comment(s): Right-sided gaze present. Left facial droop present. Left side completely flaccid. - Musculoskeletal Musculoskeletal: Present: left sided weakness - Psychiatric Psychiatric Comment(s): Able to state her full name and prostate, states it is 2017, states she does not know where she is at even when given choices. - Allied health notes Allied health notes reviewed: nursing - Labs CBC & Chem 7: 02/04/17 05:57 02/04/17 05:57 Labs: Abnormal Lab Results - Last 24 Hours (Table) 02/02/17 02/03/17 02/04/17 Range/Units 12:47 05:34 05:57 WBC 13.3 H (3.8-10.6) k/uL MCH 24.5 L (25.0-35.0) pg MCHC 29.2 L (31.0-37.0) g/dL RDW 16.9 H (11.5-15.5) % Sodium (137-145) mmol/L POC Glucose (mg/dL) 107 H (75-99) mg/dL Calcium (8.4-10.2) mg/dL Alkaline Phosphatase (38-126) U/L Total Creatine Kinase 180 H (30-135) U/L Troponin I 0.414 H* (0.000-0.034) ng/mL Total Protein (6.3-8.2) g/dL Albumin (3.5-5.0) g/dL 02/04/17 Range/Units 05:57 WBC (3.8-10.6) k/uL MCH (25.0-35.0) pg MCHC (31.0-37.0) g/dL RDW (11.5-15.5) % Sodium 134 L (137-145) mmol/L POC Glucose (mg/dL) (75-99) mg/dL Calcium 8.2 L (8.4-10.2) mg/dL Alkaline Phosphatase 251 H (38-126) U/L Total Creatine Kinase (30-135) U/L Troponin I (0.000-0.034) ng/mL Total Protein 5.5 L (6.3-8.2) g/dL Albumin 2.3 L (3.5-5.0) g/dL - Imaging and Cardiology CT Scan - head: report reviewed, image reviewed Assessment and Plan (1) COPD (chronic obstructive pulmonary disease) Current Visit: Yes Status: Chronic Code(s): J44.9 - CHRONIC OBSTRUCTIVE PULMONARY DISEASE, UNSPECIFIED SNOMED Code(s): 98824629 (2) Tobacco dependence Current Visit: Yes Status: Chronic Code(s): F17.200 - NICOTINE DEPENDENCE, UNSPECIFIED, UNCOMPLICATED SNOMED Code(s): 12070330 (3) Cerebrovascular accident Current Visit: Yes Status: Acute Code(s): I63.9 - CEREBRAL INFARCTION, UNSPECIFIED SNOMED Code(s): 010927306 (4) Hydropneumothorax Current Visit: Yes Status: Acute Code(s): J94.8 - OTHER SPECIFIED PLEURAL CONDITIONS SNOMED Code(s): 13704286 (5) Metastatic adenocarcinoma Current Visit: Yes Status: Acute Priority: High Code(s): C79.9 - SECONDARY MALIGNANT NEOPLASM OF UNSPECIFIED SITE SNOMED Code(s): 497047885 (6) Ascites Current Visit: No Status: Chronic Code(s): R18.8 - OTHER ASCITES SNOMED Code(s): 359567468 (7) DVT, bilateral lower limbs Current Visit: No Status: Chronic Code(s): I82.403 - ACUTE EMBOLISM AND THOMBOS UNSP DEEP VEINS OF LOW EXTRM, BI SNOMED Code(s): 224123507 (8) Dyspnea Current Visit: No Status: Acute Code(s): R06.00 - DYSPNEA, UNSPECIFIED SNOMED Code(s): 812276511 (9) Pleural effusion Current Visit: No Status: Acute Code(s): J90 - PLEURAL EFFUSION, NOT ELSEWHERE CLASSIFIED SNOMED Code(s): 84845715 (10) Pulmonary emboli Current Visit: No Status: Chronic Code(s): I26.99 - OTHER PULMONARY EMBOLISM WITHOUT ACUTE COR PULMONALE SNOMED Code(s): 96806899 Plan: 1. Continue supportive care, palliative treatment. 2. Medical management per primary, pulmonology, neurology. 3. No surgical intervention appropriate at this time. 4. Will continue to monitor as needed. Please call us with any questions. Time with Patient: Greater than 30
--- NOTE | 2017-02-04 08:17 | CT ---
EXAMINATION TYPE: CT brain wo con DATE OF EXAM: 02/04/2017 COMPARISON: 02/03/2017 and 02/02/2017 HISTORY: 51-year-old female Follow up to CVA TECHNIQUE: Examination was done in axial plane without intravenous contrast. Coronal and sagittal r econstructions performed. CT DLP: 1981.5 mGycm Automated exposure control for dose reduction was used. FINDINGS: There is no evidence of acute intracranial hemorrhage, acute ischemic changes, mass, mass-effect, or extra-axial fluid collection. There is no effacement of cerebral sulci or basal subarachnoid cister ns. There is no hydrocephalus. There is no midline shift. Acevedo-white matter distinction is preserv ed. There is mild white matter hypodensities suggest changes of chronic small vessel ischemic disease. Fo parag hypodensity near the right-sided splenium of the corpus callosum, axial image 29 is unchanged. No large vascular territory evolving infarct. 5 mm rounded prominence to the right carotid terminus. Refer to axial image 19 and coronal image 23. Paranasal sinuses show mucosal retention cyst or polyp along the floor of the right maxillary sinus a nd within the right sphenoid sinus. Mastoid air cells well pneumatized. Orbits and globes are intact. IMPRESSION: 1. No evolving large vascular territory infarct. No acute intracranial hemorrhage. 2. Hypodensity in the region of the right splenium of the corpus callosum was present back to 02/03/20 17 without change. Older priors are not available to determine long-term stability. Both subacute and chronic white matter infarct are in the differential. If indicated, MRI can be performed. 3. As the 02/02/2017 CTA did not demonstrate any aneurysm along the ute of [place], MRA can provide a re-assessment to exclude a potential 5 mm right ICA terminus aneurysm if MRI is performed.
[2017-02-04] MEDS: FUROSEMIDE 20 MG TAB PO SCH (09:07)
[2017-02-04] MEDS: POTASSIUM CHLORIDE ER 10 MEQ TAB.ER.PRT PO SCH (09:07)
[2017-02-04] MEDS: FAMOTIDINE 20 MG TAB PO SCH ×2 (09:07→22:16)
[2017-02-04] MEDS: RIVAROXABAN 10 MG TAB PO SCH (09:07)
[2017-02-04] MEDS: METOPROLOL TARTRATE 12.5 MG TAB PO SCH ×2 (09:08→22:15)
[2017-02-04] MEDS: SODIUM CHLORIDE 0.9% 500 ML IV SCH (11:11)
--- NOTE | 2017-02-04 11:16 | P.PN ---
Subjective Progress Note Date: 02/04/17 Principal diagnosis: Acute CVA Patient seen bedside, over night she was notied to be having choking episodes with sips of water, she was place on NPO, she did not have any significant Neuro change , Speech seen this morning and diet was modified. Objective - Vital Signs Vital signs: Vital Signs Temp 97.8 F 02/04/17 07:47 Pulse 107 H 02/04/17 07:58 Resp 18 02/04/17 07:58 BP 130/77 02/04/17 07:47 Pulse Ox 93 L 02/04/17 07:47 Intake & Output 02/03/17 02/04/17 02/04/17 18:59 06:59 18:59 Intake Total 700 260 Balance 700 260 Weight 76 kg Intake: IV 80 0.9 80 Intake, IV Titration 160 Amount Sodium Chloride 0.9% 1, 160 000 ml @ 20 mls/hr IV . Q24H [facility] Rx#:[id number] Oral 620 100 Other: Voiding Method Bedpan Diaper Diaper # Voids 2 1 # Bowel Movements 1 - Exam Constitutional General appearance: Awake and alert, she knows the year but not the month, she is on some mild resp distress with noted increase work of breathing, however she is cooperative mother and brother at bedside - EENT Eyes: abnormal pupil, no EOMI, PERRLA left side noelle neglect - Neck Neck: no lymphadenopathy, no stridor - Respiratory Respiratory: bilateral: diminished, dullness, other (pursing lips ), diffuse crackles and rhonchi noted, transmitting through orophayranx - Cardiovascular Heart sounds: normal: S1, S2 Abnormal Heart Sounds: no systolic murmur, no diastolic murmur - Neurologic Compkete left sided neglect, Loss of sensory and motor function on upper left extremity and lower left extremity, Plantar reflex on left is up going and retract at the hip on the right. there is right facial droop with dysartheria present. Patient eye dont cross the mid line on left later gaze. Neurologic: focal deficits - Musculoskeletal Musculoskeletal: left sided flaccid paralysis weakness - Psychiatric Psychiatric: A&O x's 3, no appropriate affect (exhibit depressed mood ), intact judgment & insight - Labs CBC & Chem 7: 02/04/17 05:57 02/04/17 05:57 Labs: Abnormal Lab Results - Last 24 Hours (Table) 02/04/17 02/04/17 Range/Units 05:57 05:57 WBC 13.3 H (3.8-10.6) k/uL MCH 24.5 L (25.0-35.0) pg MCHC 29.2 L (31.0-37.0) g/dL RDW 16.9 H (11.5-15.5) % Sodium 134 L (137-145) mmol/L Calcium 8.2 L (8.4-10.2) mg/dL Alkaline Phosphatase 251 H (38-126) U/L Total Protein 5.5 L (6.3-8.2) g/dL Albumin 2.3 L (3.5-5.0) g/dL Assessment and Plan Assessment: #1 Acute CVA Initial computed tomography scan of the brain revealed no acute intracranial abnormalities. unable to obtain MRI 2/2 incompalibilties of chemo port. CT head on 02/04/2018 demonstarted hypodensity in the region of the right splenium of the corpous callosum unchanged from 02/02/2017 both subacute and acute white matter infarct are in the defferntial, Neuro on board, oma lbe given statin if able to tolerate PO patient is on AC and Ct head did not show any acute transformation, Patient is on fall/ asp/ seizure precaution, Continue with Neuro checks q2 and obtain stat CT head with any further rapid decline in neuro exam. #2 acute hypoxic respiratory failure 2/2 Right sided hydropneumothorax from malignant effusion. Status post right-sided Port-A-Cath placement approximately one week ago. pulmonary on board no plan for intervention due to other pressing medical issue they will continue to follow, Continue with supplemntal O2, Respiratory therapy to eval and assist with breathing tx. #3 NSTEMI type 2 with elevated troponin 2/2 demand ischemia from tachycardia and known PE,- Cardiology on board and rec appreciated #4 Metastatic stage IV colon cancer with hepatic metastasis. Most likely pulmonary metastasis as the patient does have multiple pulmonary nodules that are subcentimeter scattered throughout the lungs and subsequent bilateral pleural effusions. [place] on board and awaiting results of neuro evaluation and outcome to determine to proceed with chemo for palliative approach #5 Recent pulmonary embolism/DVT, anticoagulated with Xarelto. will need rec on possible anticoagulation changes due to the fact patient sustained a CVA while on Xarelto (? antiocagulation failure). 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
--- NOTE | 2017-02-04 12:48 | P.PN ---
Subjective Progress Note Date: 02/04/17 Principal diagnosis: Acute CVA This is a very pleasant 51-year-old female patient who follows with Dr. Hadley as her primary care physician. She has a history of chronic obstructive pulmonary disease, chronic and ongoing tobacco dependence, anxiety. 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 She has had issues with ascites and bilateral pleural effusions she has undergone paracentesis. She also has a history of DVT/pulmonary embolism and is status post Thorofare filter placement and she remains on Xarelto. She was seen here less than one month ago by Dr. Walter. She did have bilateral pleural effusions then. Ultrasound revealed a right-sided pleural effusion at 9.0 cm and to a lesser extent left pleural effusion. No thoracentesis was performed at that time. She was diuresed and did undergo a paracentesis with approximate 6.4 L of serous fluid removed which improved her pulmonary status. The peritoneal fluid was positive for metastatic carcinoma as well. A barium enema did reveal a 2.7 cm long apple core lesion/colon cancer in the ascending colon. She did improve and was subsequently discharged on 01/12/2017 with plans for palliative treatment. She re-presented to the emergency room yesterday by her family after being found to have left-sided weakness and altered mental status. A computed tomography scan of the brain did not reveal any intracranial abnormalities and no masses or lesions, no acute infarcts. Her chest x-ray revealed a right- sided hydropneumothorax. She is status post right-sided Port-A-Cath placement done approximately a week ago. A CT angiogram of the neck revealed no abnormalities within the internal carotids or the [place]. The right- sided pneumothorax with subsequent chest x-ray suggests may be larger than the originally reported. We're consulted for the same. She is seen on the selective care unit. She is somewhat of a poor historian. She does have some left-sided weakness but is answering yes and no questions appropriately. She is requiring to be fed by the nursing assistants. There is no evidence of aspiration. Speech pathology is in the room. She was quite short of breath while laying flat but is currently maintaining good O2 saturations in the upper 90s on 2 L/m per nasal cannula. Prior to that she was maintaining O2 saturations in the 90s on room air. An ultrasound of the chest is pending. Reevaluated today on 02/05/2017, patient is basically about the same. Family happened to be at bedside, and I explained to the family that she does have pleural effusion and small pneumothorax, thoracentesis could be considered, however at this point her main issue seems to be related to her acute CVA and her metastatic adenocarcinoma. Patient continues to have episodes of choking with sips of water, and she is presently nothing by mouth. Neurologic status is about the same.patient's main problem seems to be related to her acute CVA, she also has a right sided hydropneumothorax, possible malignant pleural effusion from metastatic stage IV colon cancer, and non-ST elevation myocardial infarction as well as recent history of pulmonary embolism and DVT. History of quadriplegia and physical debility. Objective - Vital Signs Vital signs: Vital Signs Temp 97.2 F L 02/04/17 11:07 Pulse 94 02/04/17 11:29 Resp 16 02/04/17 11:29 BP 101/72 02/04/17 11:07 Pulse Ox 92 L 02/04/17 11:07 Intake & Output 02/03/17 02/04/17 02/04/17 18:59 06:59 18:59 Intake Total 700 260 Balance 700 260 Weight 76 kg Intake: IV 80 0.9 80 Intake, IV Titration 160 Amount Sodium Chloride 0.9% 1, 160 000 ml @ 20 mls/hr IV . Q24H [facility] Rx#:[id number] Oral 620 100 Other: Voiding Method Bedpan Diaper Diaper # Voids 2 1 1 # Bowel Movements 1 - Exam GENERAL EXAM: Alert, oriented to person, comfortable in no apparent distress. HEAD: Normocephalic. EYES: Deviated gaze to the right. NOSE: Clear with pink turbinates. THROAT: No erythema or exudates. Poor dentition. NECK: No masses, no JVD. CHEST: No chest wall deformity. Right subclavian Port-A-Cath in place. LUNGS: Few scattered rhonchi, diminished in the bases greater on the right. CVS: S1 and S2 normal with no audible murmur, regular rhythm. ABDOMEN: Slightly distended, normal bowel sounds, no guarding or rigidity. SPINE: No scoliosis or deformity SKIN: No rashes EXTREMITIES: There is significant left-sided weakness. No significant peripheral edema. Peripheral pulses are intact.. - Labs CBC & Chem 7: 02/04/17 05:57 02/04/17 05:57 Labs: Abnormal Lab Results - Last 24 Hours (Table) 02/04/17 02/04/17 Range/Units 05:57 05:57 WBC 13.3 H (3.8-10.6) k/uL MCH 24.5 L (25.0-35.0) pg MCHC 29.2 L (31.0-37.0) g/dL RDW 16.9 H (11.5-15.5) % Sodium 134 L (137-145) mmol/L Calcium 8.2 L (8.4-10.2) mg/dL Alkaline Phosphatase 251 H (38-126) U/L Total Protein 5.5 L (6.3-8.2) g/dL Albumin 2.3 L (3.5-5.0) g/dL Assessment and Plan Plan: #1 Altered mental status with left-sided weakness and gaze deviated to the right side. Initial computed tomography scan of the brain revealed no acute intracranial abnormalities. #2 Right sided hydropneumothorax. Status post right-sided Port-A-Cath placement approximately one week ago. #3 Bilateral pleural effusions right greater than left. #4 Ascites with recent paracentesis was 6.4 L fluid removed. Positive for adenocarcinoma. #5 Metastatic stage IV cancer of the gastrointestinal/biliary origin with secondary omental involvement and ascites and hepatic hepatic metastasis. Most likely pulmonary metastasis as the patient does have multiple pulmonary nodules that are subcentimeter scattered throughout the lungs and subsequent bilateral pleural effusions. #6 Recent pulmonary embolism/DVT, anticoagulated with Xarelto. #7 Cervical dysplasia. #8 Tachycardia with troponin elevation. Echocardiogram pending. Recommendation: Continue present supportive care measures, explained to the family at bedside that doing a thoracentesis at this point would basically subject the patient to more brisk without any significant benefit since her main issue seems to be neurological in nature. And her other issue seems to be related to metastatic colon cancer. Will follow repeat chest x-ray in a.m. Time with Patient: Less than 30
--- NOTE | 2017-02-04 14:14 | P.PN ---
Subjective Progress Note Date: 02/04/17 Principal diagnosis: Generalized weakness This is a pleasant 51-year-old female patient with stage IV colon cancer with metastases to the lung who was brought to the emergency room because of concern regarding left-sided weakness. Patient also has a history of COPD and nicotine dependence, history of PE and DVT,. Cardiology consultation was initially requested on the patient because of sinus tachycardia. She was seen in consultation yesterday by Dr. Gonzalez. Patient's cardiac enzymes were also slightly abnormal, not consistent with acute coronary syndrome, likely secondary to sinus tachycardia and oxygen supply and demand mismatch. The chest x-ray revealed a right-sided hydropneumothorax and cardiothoracic surgery has been consulted. Patient did have an echocardiogram with Doppler study performed which revealed an ejection fraction of 55-60%. Heart rate this morning 90s to 110. Blood pressure 130/70. WBC 13.3, hemoglobin 11.6, platelet count 231. Sodium 134, potassium 4.1, BUN 7, creatinine 0.5. Objective - Vital Signs Vital signs: Vital Signs Temp 97.2 F L 02/04/17 11:07 Pulse 94 02/04/17 11:29 Resp 16 02/04/17 11:29 BP 101/72 02/04/17 11:07 Pulse Ox 92 L 02/04/17 11:07 Intake & Output 02/03/17 02/04/17 02/04/17 18:59 06:59 18:59 Intake Total 700 260 Balance 700 260 Weight 76 kg Intake: IV 80 0.9 80 Intake, IV Titration 160 Amount Sodium Chloride 0.9% 1, 160 000 ml @ 20 mls/hr IV . Q24H [facility] Rx#:[id number] Oral 620 100 Other: Voiding Method Bedpan Diaper Diaper # Voids 2 1 1 # Bowel Movements 1 - Exam PHYSICAL EXAMINATION: HEENT: Head is atraumatic, normocephalic. Eyes have a deviated gaze to the right, Neck is supple. There is no elevated jugular venous pressure. HEART EXAMINATION: Heart S1, S2 normal. No murmur or gallop heard. CHEST EXAMINATION: Lungs reveal a few scattered rhonchi with diminished air entry to the bases ABDOMEN: Soft, mildly distended. Bowel sounds are heard. No organomegaly noted. EXTREMITIES: 1+ peripheral pulses with no evidence of peripheral edema and no calf tenderness noted. NEUROLOGIC patient is awake, alert and oriented -3. Significant left-sided weakness. . - Labs CBC & Chem 7: 02/04/17 05:57 02/04/17 05:57 Labs: Abnormal Lab Results - Last 24 Hours (Table) 02/04/17 02/04/17 Range/Units 05:57 05:57 WBC 13.3 H (3.8-10.6) k/uL MCH 24.5 L (25.0-35.0) pg MCHC 29.2 L (31.0-37.0) g/dL RDW 16.9 H (11.5-15.5) % Sodium 134 L (137-145) mmol/L Calcium 8.2 L (8.4-10.2) mg/dL Alkaline Phosphatase 251 H (38-126) U/L Total Protein 5.5 L (6.3-8.2) g/dL Albumin 2.3 L (3.5-5.0) g/dL Assessment and Plan Plan: Assessment and plan #1 Altered mental status with left-sided weakness and gaze deviated to the right side. Initial computed tomography scan of the brain revealed no acute intracranial abnormalities. #2 Right sided hydropneumothorax. Status post right-sided Port-A-Cath placement approximately one week ago. #3 Bilateral pleural effusions right greater than left. #4 Ascites with recent paracentesis was 6.4 L fluid removed. Positive for adenocarcinoma. #5 Metastatic stage IV cancer of the gastrointestinal/biliary origin with secondary omental involvement and ascites and hepatic hepatic metastasis. Most likely pulmonary metastasis as the patient does have multiple pulmonary nodules that are subcentimeter scattered throughout the lungs and subsequent bilateral pleural effusions. #6 Recent pulmonary embolism/DVT, anticoagulated with Xarelto. #7 Cervical dysplasia. #8 sinus tachycardia we will start the patient on a low-dose of beta bonnie today. #9 abnormal troponins, not consistent with acute coronary syndrome, likely secondary to sinus tachycardia and oxygen supply and demand mismatch. Plan Echocardiogram with Doppler study was performed which revealed an ejection fraction of 55-60%. Right ventricle is severely enlarged. Moderate tricuspid regurg, moderate to severe pulmonary hypertension. We will start the patient on Lopressor 12-1/2 mg one tablet by mouth twice a day today. We will follow this patient with you now on an as-needed basis only, please don't hesitate to call with any questions. DNP note has been reviewed, I agree with a documented findings and plan of care. Patient was seen and examined.
--- NOTE | 2017-02-04 19:59 | P.PN ---
Subjective Progress Note Date: 02/04/17 The patient is a 51-year-old woman with stage IV metastatic cancer who presented to the hospital with respiratory distress and acute stroke. She continues to have left hemiplegia. Her mentation is good although she is more drowsy today. She is coherent. She denied any headache or new symptoms. Her mother and family are at bedside. They report that they have been talking to her and her cognition has been good. The patient had a repeat CT today. This did not show any evolving infarct. There was no hemorrhage. Hypodensity was seen in the right splenium of corpus callosum. The patient is unable to undergo an MRI. The patient is being treated for recent pulmonary embolus. She is on Xarelto. Objective - Vital Signs Vital signs: Vital Signs Temp 97.2 F L 02/04/17 16:00 Pulse 105 H 02/04/17 16:00 Resp 16 02/04/17 16:00 BP 120/86 02/04/17 16:00 Pulse Ox 94 L 02/04/17 16:00 Intake & Output 02/04/17 02/04/17 02/05/17 06:59 18:59 06:59 Intake Total 260 240 Balance 260 240 Weight 76 kg Intake: Intake, IV Titration 160 Amount Sodium Chloride 0.9% 1, 160 000 ml @ 20 mls/hr IV . Q24H [facility] Rx#:[id number] Oral 100 240 Other: Voiding Method Diaper Diaper # Voids 1 4 # Bowel Movements 1 1 - Constitutional General appearance: Present: disheveled - EENT ENT: Present: hearing grossly normal - Neurologic Neurologic Comment(s): Neurologic examination mental status: The patient is sleepy but easily arousable. She answers questions appropriately. There is no a aphasia or dysarthria. Cranial nerve examination she continues to exhibit left-sided neglect. There is left facial asymmetry. Motor examination she has a left hemiplegia - Labs CBC & Chem 7: 02/04/17 05:57 02/04/17 05:57 Labs: Abnormal Lab Results - Last 24 Hours (Table) 02/04/17 02/04/17 Range/Units 05:57 05:57 WBC 13.3 H (3.8-10.6) k/uL MCH 24.5 L (25.0-35.0) pg MCHC 29.2 L (31.0-37.0) g/dL RDW 16.9 H (11.5-15.5) % Sodium 134 L (137-145) mmol/L Calcium 8.2 L (8.4-10.2) mg/dL Alkaline Phosphatase 251 H (38-126) U/L Total Protein 5.5 L (6.3-8.2) g/dL Albumin 2.3 L (3.5-5.0) g/dL Assessment and Plan (1) Cerebrovascular accident Current Visit: Yes Status: Acute SNOMED Code(s): 276809754 (2) Metastatic adenocarcinoma Current Visit: Yes Status: Acute Priority: High SNOMED Code(s): 067702588 (3) Ascites Current Visit: No Status: Chronic SNOMED Code(s): 734179992 (4) Hydropneumothorax Current Visit: Yes Status: Acute SNOMED Code(s): 78427757 Plan: The patient is a 51-year-old woman with history of acute right subcortical stroke with left hemiplegia. Family is at bedside. They report that she has been coherent. The patient is awake and able to answer questions. She has left -sided neglect left facial droop and left hemiplegia. There has been not much change in her neurologic examination since yesterday. CT brain does not reveal any changes. There is no mass mass effect or intracranial hemorrhage. The patient has been having some difficulty swallowing and her diet has been adjusted.
[2017-02-04] MEDS: ACETAMINOPHEN TAB 325 MG TAB PO PRN (22:16)
[2017-02-05 06:36] LABS: Anisocytosis Slight; CH 24.2; CHCM 29.2; HCT 39.5 % (34.0-46.0); HDW 2.78; HGB 11.4 gm/dL (11.4-16.0); Hypochromasia Marked; MCH 24.1 pg (25.0-35.0); MCHC 28.9 g/dL (31.0-37.0); MCV 83.3 fL (80.0-100.0); Mean Platelet Volume 8.3; RBC 4.75 m/uL (3.80-5.40); RDW 18.7 % (11.5-15.5); WBC 14.1 k/uL (3.8-10.6)
[2017-02-05 06:37] LABS: Anion Gap 6 mmol/L; Blood Urea Nitrogen 9 mg/dL (7-17); Calcium 8.3 mg/dL (8.4-10.2); Carbon Dioxide 28 mmol/L (22-30); Chloride 101 mmol/L (98-107); Glucose 82 mg/dL (74-99); Non-African American GFR(MDRD) >60 (>60 ml/min/1.73 sqM); Potassium 3.9 mmol/L (3.5-5.1); Sodium 135 mmol/L (137-145)
[2017-02-05 06:40] LABS: INR 1.5 (<1.2); Partial Thromboplastin Time 25.3 sec (22.0-30.0); Prothrombin Time 14.5 sec (9.0-12.0)
[2017-02-05] MEDS: FUROSEMIDE 20 MG TAB PO SCH (08:19)
[2017-02-05] MEDS: FAMOTIDINE 20 MG TAB PO SCH (08:20)
[2017-02-05] MEDS: POTASSIUM CHLORIDE ER 10 MEQ TAB.ER.PRT PO SCH (08:20)
[2017-02-05] MEDS: METOPROLOL TARTRATE 12.5 MG TAB PO SCH ×2 (08:20→20:49)
[2017-02-05] MEDS: RIVAROXABAN 10 MG TAB PO SCH (08:20)
--- NOTE | 2017-02-05 09:19 | XR ---
EXAMINATION TYPE: XR chest 1V portable DATE OF EXAM: 02/05/2017 COMPARISON: Prior chest x-ray 02/02/2017 HISTORY: Pneumothorax TECHNIQUE: Single frontal view of the chest is obtained. FINDINGS: Right-sided apical pneumothorax persists. Basilar increased density is present, interval i ncrease in density at the left lung base. IMPRESSION: Right-sided hydropneumothorax. Basilar effusions. Suspect cardiomegaly.
--- NOTE | 2017-02-05 11:51 | P.PN ---
Subjective Progress Note Date: 02/05/17 Principal diagnosis: Acute cerebrovascular accident. This is a very pleasant 51-year-old female patient who follows with Dr. Hadley as her primary care physician. She has a history of chronic obstructive pulmonary disease, chronic and ongoing tobacco dependence, anxiety. 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 She has had issues with ascites and bilateral pleural effusions she has undergone paracentesis. She also has a history of DVT/pulmonary embolism and is status post Sarah filter placement and she remains on Xarelto. She was seen here less than one month ago by Dr. Walter. She did have bilateral pleural effusions then. Ultrasound revealed a right-sided pleural effusion at 9.0 cm and to a lesser extent left pleural effusion. No thoracentesis was performed at that time. She was diuresed and did undergo a paracentesis with approximate 6.4 L of serous fluid removed which improved her pulmonary status. The peritoneal fluid was positive for metastatic carcinoma as well. A barium enema did reveal a 2.7 cm long apple core lesion/colon cancer in the ascending colon. She did improve and was subsequently discharged on 01/12/2017 with plans for palliative treatment. She re-presented to the emergency room yesterday by her family after being found to have left-sided weakness and altered mental status. A computed tomography scan of the brain did not reveal any intracranial abnormalities and no masses or lesions, no acute infarcts. Her chest x-ray revealed a right- sided hydropneumothorax. She is status post right-sided Port-A-Cath placement done approximately a week ago. A CT angiogram of the neck revealed no abnormalities within the internal carotids or the [place]. The right- sided pneumothorax with subsequent chest x-ray suggests may be larger than the originally reported. We're consulted for the same. She is seen on the selective care unit. She is somewhat of a poor historian. She does have some left-sided weakness but is answering yes and no questions appropriately. She is requiring to be fed by the nursing assistants. There is no evidence of aspiration. Speech pathology is in the room. She was quite short of breath while laying flat but is currently maintaining good O2 saturations in the upper 90s on 2 L/m per nasal cannula. Prior to that she was maintaining O2 saturations in the 90s on room air. An ultrasound of the chest is pending. Reevaluated today on 02/04/2017, patient is basically about the same. Family happened to be at bedside, and I explained to the family that she does have pleural effusion and small pneumothorax, thoracentesis could be considered, however at this point her main issue seems to be related to her acute CVA and her metastatic adenocarcinoma. Patient continues to have episodes of choking with sips of water, and she is presently nothing by mouth. Neurologic status is about the same.patient's main problem seems to be related to her acute CVA, she also has a right sided hydropneumothorax, possible malignant pleural effusion from metastatic stage IV colon cancer, and non-ST elevation myocardial infarction as well as recent history of pulmonary embolism and DVT. History of quadriplegia and physical debility. The patient is seen again today in 02/05/2017 in follow-up on the selective care unit. She remains quite debilitated and weak. She is maintaining O2 saturations in the 90s on room air. Chest x-ray reveals right-sided hydropneumothorax with basilar effusions. Density in the left lung base. She' s been afebrile. Hemodynamically stable. White count 14.1. Hemoglobin 11.4. INR 1.5. Objective - Vital Signs Vital signs: Vital Signs Temp 98.6 F 02/05/17 11:10 Pulse 93 02/05/17 11:22 Resp 16 02/05/17 11:22 BP 98/75 02/05/17 11:10 Pulse Ox 93 L 02/05/17 11:10 Intake & Output 02/04/17 02/05/17 02/05/17 18:59 06:59 18:59 Intake Total 240 160 440 Balance 240 160 440 Weight 72.5 kg 72.5 kg Intake: IV 80 0.9 80 Intake, IV Titration 160 Amount Sodium Chloride 0.9% 500 160 ml @ 20 mls/hr IV .Q24H [facility] Rx#:[id number] Oral 240 360 Other: Voiding Method Diaper Diaper Diaper # Voids 4 1 # Bowel Movements 1 1 - Exam GENERAL EXAM: Alert, oriented to person, comfortable in no apparent distress. HEAD: Normocephalic. Left-sided facial droop EYES: Deviated gaze to the right. NOSE: Clear with pink turbinates. THROAT: No erythema or exudates. Poor dentition. NECK: No masses, no JVD. CHEST: No chest wall deformity. Right subclavian Port-A-Cath in place. LUNGS: Few scattered rhonchi, diminished in the bases greater on the right. CVS: S1 and S2 normal with no audible murmur, regular rhythm. ABDOMEN: Slightly distended, normal bowel sounds, no guarding or rigidity. SPINE: No scoliosis or deformity SKIN: No rashes EXTREMITIES: There is significant left-sided weakness. No significant peripheral edema. Peripheral pulses are intact.. - Labs CBC & Chem 7: 02/05/17 05:36 02/05/17 05:36 Labs: Abnormal Lab Results - Last 24 Hours (Table) 02/05/17 02/05/17 02/05/17 Range/Units 05:36 05:36 05:36 WBC 14.1 H (3.8-10.6) k/uL MCH 24.1 L (25.0-35.0) pg MCHC 28.9 L (31.0-37.0) g/dL RDW 18.7 H (11.5-15.5) % PT 14.5 H (9.0-12.0) sec INR 1.5 H (<1.2) Sodium 135 L (137-145) mmol/L Calcium 8.3 L (8.4-10.2) mg/dL Assessment and Plan Assessment: Impression: #1 Altered mental status with left-sided weakness and gaze deviated to the right side contrary to acute right subcortical stroke with left hemiplegia.. #2 Right sided hydropneumothorax. Status post right-sided Port-A-Cath placement approximately one week ago. #3 Bilateral pleural effusions right greater than left. #4 Ascites with recent paracentesis was 6.4 L fluid removed. Positive for adenocarcinoma. #5 Metastatic stage IV cancer of the gastrointestinal/biliary origin with secondary omental involvement and ascites and hepatic hepatic metastasis. Most likely pulmonary metastasis as the patient does have multiple pulmonary nodules that are subcentimeter scattered throughout the lungs and subsequent bilateral pleural effusions. #6 Recent pulmonary embolism/DVT, anticoagulated with Xarelto. #7 Cervical dysplasia. #8 Tachycardia with troponin elevation. Echocardiogram pending. Plan: The patient was seen and evaluated by Dr. Matthew. Her chest x-rays and labs were reviewed. There is a right-sided hydropneumothorax along with pleural effusion. He did have discussion with the patient's family who were at the bedside yesterday. The risk may outweigh the benefit of a thoracentesis at this time based on her neurological status and metastatic colon cancer. No plans for thoracentesis at this time. I, the cosigning physician, have performed a history and physical examination on the patient. Lung sounds are diminished in the bilateral bases right greater than left. Maintaining good O2 saturations in the 90s on 2 L/m per nasal cannula. I have discussed the assessment and plan of care with my nurse practitioner, Marianna Cortes. I attest the above documented note as dictated by her.
[2017-02-05] MEDS: SODIUM CHLORIDE 0.9% 500 ML IV SCH (15:01)
[2017-02-05] MEDS: ASPIRIN 81 MG PO SCH (17:21)
--- NOTE | 2017-02-05 18:36 | P.PN ---
Subjective Progress Note Date: 02/05/17 Principal diagnosis: CVA. Metastatic colon cancer The patient continues to have dense left-sided weakness. She continues to be lethargic, with some difficulty in swallowing noted by nursing. Diet has been modified. Objective - Vital Signs Vital signs: Vital Signs Temp 98.0 F 02/05/17 14:59 Pulse 106 H 02/05/17 16:00 Resp 16 02/05/17 16:00 BP 117/69 02/05/17 14:59 Pulse Ox 92 L 02/05/17 14:59 Intake & Output 02/04/17 02/05/17 02/05/17 18:59 06:59 18:59 Intake Total 240 160 776 Balance 240 160 776 Weight 72.5 kg 72.5 kg Intake: IV 80 0.9 80 Intake, IV Titration 160 Amount Sodium Chloride 0.9% 500 160 ml @ 20 mls/hr IV .Q24H NORMA Rx#:[id number] Oral 240 696 Other: Voiding Method Diaper Diaper Diaper # Voids 4 1 # Bowel Movements 1 1 - Constitutional General appearance: Present: no acute distress - EENT Eyes: Present: PERRLA ENT: Present: hearing grossly normal - Respiratory Respiratory: bilateral: CTA - Cardiovascular Rhythm: regular Heart sounds: normal: S1, S2 - Gastrointestinal General gastrointestinal: Present: normal bowel sounds, soft - Integumentary Integumentary: Present: normal - Neurologic Neurologic Comment(s): Left facial droop - Musculoskeletal Musculoskeletal: Present: left sided weakness - Psychiatric Psychiatric: Present: A&O x's 3 - Labs CBC & Chem 7: 02/05/17 05:36 02/05/17 05:36 Labs: Abnormal Lab Results - Last 24 Hours (Table) 02/05/17 02/05/17 02/05/17 Range/Units 05:36 05:36 05:36 WBC 14.1 H (3.8-10.6) k/uL MCH 24.1 L (25.0-35.0) pg MCHC 28.9 L (31.0-37.0) g/dL RDW 18.7 H (11.5-15.5) % PT 14.5 H (9.0-12.0) sec INR 1.5 H (<1.2) Sodium 135 L (137-145) mmol/L Calcium 8.3 L (8.4-10.2) mg/dL Assessment and Plan (1) Cerebrovascular accident Narrative/Plan: The patient has not had any improvement in her strength so far. She was in fact slightly more lethargic today. In that had to be modified because of some difficulty in swallowing. Repeat computed tomography scan did not show major evolving CVA. Case was discussed with the admitting service and urology notes are reviewed. At this time, brain stem stroke appears to be a strong possibility. The patient developed a CVA despite being on Xarelto. Therefore antiplatelet therapy was discussed with the admitting service. The combination of Xarelto and aspirin could carry some increased bleeding risk. However, the patient does not have evidence of a massive evolving CVA. She would obviously be at high risk of recurrence without antiplatelet therapy in our opinion. Therefore based on risk benefit, it is felt to be reasonable to add a baby aspirin. Current Visit: Yes Status: Acute Code(s): I63.9 - CEREBRAL INFARCTION, UNSPECIFIED SNOMED Code(s): 701341492 (2) Metastatic adenocarcinoma Narrative/Plan: The patient has metastatic disease, and was supposed to start chemotherapy. The intent of chemotherapy is palliation of symptoms and prolongation of life. Her cancer is not curable. Currently, her performance status is too poor for her to begin chemotherapy. She definitely needs some degree of rehab first. I therefore agree with the plan for transferred to subacute rehab. She can follow-up in the office with within one to 2 weeks to assess her progress. Current Visit: Yes Status: Acute Priority: High Code(s): C79.9 - SECONDARY MALIGNANT NEOPLASM OF UNSPECIFIED SITE SNOMED Code(s): 889094933 (3) Pulmonary emboli Narrative/Plan: These are comparatively recent, due to which she was placed on Xarelto. Again in the setting of CVA, and the need for antibiotic therapy, concurrent use of Xarelto code increased risk of bleeding. However stopping anticoagulation would place her at significant risk of recurrence of venous thrombus embolism. Therefore, again, based on risk benefit continuation of Xarelto is felt to be appropriate Current Visit: No Status: Chronic Code(s): I26.99 - OTHER PULMONARY EMBOLISM WITHOUT ACUTE COR P[place]MONALE SNOMED Code(s): 43377809
--- NOTE | 2017-02-05 19:52 | PN ---
PROGRESS NOTE DATE OF SERVICE: 02/05/2017 This 51-year-old woman who had a past medical history of multiple medical problems had acute CVA. Patient has significant weakness on the left side of the body as well as conjugate gaze paralysis on the right side. The patient also had history of metastatic stage IV colon cancer. The patient also was on blood thinners because of PE and DVT. The patient appears to have stroke involving the brain stem this time. Dr. Matthew and multiple consultants, including Neurology, are following the patient closely. The patient also has some difficulty in swallowing, but apparently according the staff today, the patient did well with a modified diet. PAST MEDICAL HISTORY: Reviewed. REVIEW OF SYSTEMS: Could not be taken, as the patient is mildly confused. CURRENT MEDICATIONS: Reviewed, include: 1. Tylenol 650 every 6 hours p.r.n. 2. [place]. 3. DuoNeb q.i.d. and p.r.n. 4. Pepcid 20 mg b.i.d. 5. Lasix 20 mg daily. 6. Lopressor. 7. Xarelto. PHYSICAL EXAM: Patient is alert, oriented x2. Pulse 106, blood pressure 170/60, respirations 16, temperature 98 degrees, pulse ox 92% on room air. HEENT: Conjunctivae normal. Oral mucosa moist. NECK: No jugular jugular venous distention. No carotid bruits. No lymph enlargement. CARDIOVASCULAR: S1, S2 muffled. RESPIRATORY: Breath sounds diminished in the bases. A few scattered rhonchi and crackles. ABDOMEN: Soft, nontender. No mass palpable. LEGS: No edema. NERVOUS SYSTEM: Diffusely weak, left more than right. Conjugate gaze paralysis to the right side present. LAB INVESTIGATIONS: WBC 14.1. Otherwise, troponins are noted and the chest x-ray which was done today reviewed by me showed right-sided hydropneumothorax. ASSESSMENT: 1. Left-sided weakness and gait deviation to the right possibly secondary to acute cerebrovascular accident. 2. Change in mental status, metabolic encephalopathy secondary to cerebrovascular accident. 3. Right-sided pneumothorax, status post right-sided Port-A-Cath catheter. 4. Bilateral pleural effusion, right more than the left. 5. Ascites, status post bilateral thoracocentesis. 6. Metastatic stage IV colon cancer, possibly gastrointestinal biliary etiology secondary to malignant involvement ascites with hepatic metastases. 7. Recent deep venous thrombosis, pulmonary embolism. 8. On anticoagulation with Xarelto. 9. Cervical dysplasia. 10.Tachycardia. 11.Increased WBC. RECOMMENDATIONS AND DISCUSSION: In this 51-year-old woman with a past history of multiple medical problems, will monitor the patient closely, continue the current medial management and continue symptomatic treatment. I will supplement multivitamins. Otherwise, overall prognosis guarded. I recommend PT/OT evaluation. Otherwise repeat labs will be ordered. Pathology input appreciated. Discussed with staff. Guarded prognosis because of multiple complex medical issues. Further recommendations to follow. MMODL / IJN: [id number] /
[2017-02-05] MEDS: ATORVASTATIN 20 MG TAB PO SCH (20:50)
[2017-02-06] MEDS: PANTOPRAZOLE 40 MG TABLET PO SCH (06:37)
[2017-02-06] MEDS: FUROSEMIDE 20 MG TAB PO SCH (09:27)
[2017-02-06] MEDS: ASPIRIN 81 MG PO SCH (09:27)
[2017-02-06] MEDS: RIVAROXABAN 10 MG TAB PO SCH (09:28)
[2017-02-06] MEDS: POTASSIUM CHLORIDE ER 10 MEQ TAB.ER.PRT PO SCH (09:28)
[2017-02-06] MEDS: METOPROLOL TARTRATE 12.5 MG TAB PO SCH ×3 (09:28→22:57)
--- NOTE | 2017-02-06 10:55 | P.PN ---
Subjective Progress Note Date: 02/06/17 Principal diagnosis: Acute CVA, right-sided hydropneumothorax This is a very pleasant 51-year-old female patient who follows with Dr. Hadley as her primary care physician. She has a history of chronic obstructive pulmonary disease, chronic and ongoing tobacco dependence, anxiety. 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 She has had issues with ascites and bilateral pleural effusions she has undergone paracentesis. She also has a history of DVT/pulmonary embolism and is status post [place] filter placement and she remains on Xarelto. She was seen here less than one month ago by Dr. Walter. She did have bilateral pleural effusions then. Ultrasound revealed a right-sided pleural effusion at 9.0 cm and to a lesser extent left pleural effusion. No thoracentesis was performed at that time. She was diuresed and did undergo a paracentesis with approximate 6.4 L of serous fluid removed which improved her pulmonary status. The peritoneal fluid was positive for metastatic carcinoma as well. A barium enema did reveal a 2.7 cm long apple core lesion/colon cancer in the ascending colon. She did improve and was subsequently discharged on 01/12/2017 with plans for palliative treatment. She re-presented to the emergency room yesterday by her family after being found to have left-sided weakness and altered mental status. A computed tomography scan of the brain did not reveal any intracranial abnormalities and no masses or lesions, no acute infarcts. Her chest x-ray revealed a right- sided hydropneumothorax. She is status post right-sided Port-A-Cath placement done approximately a week ago. A CT angiogram of the neck revealed no abnormalities within the internal carotids or the [place] of [place]. The right- sided pneumothorax with subsequent chest x-ray suggests may be larger than the originally reported. We're consulted for the same. She is seen on the selective care unit. She is somewhat of a poor historian. She does have some left-sided weakness but is answering yes and no questions appropriately. She is requiring to be fed by the nursing assistants. There is no evidence of aspiration. Speech pathology is in the room. She was quite short of breath while laying flat but is currently maintaining good O2 saturations in the upper 90s on 2 L/m per nasal cannula. Prior to that she was maintaining O2 saturations in the 90s on room air. An ultrasound of the chest is pending. Reevaluated today on 02/05/2017, patient is basically about the same. Family happened to be at bedside, and I explained to the family that she does have pleural effusion and small pneumothorax, thoracentesis could be considered, however at this point her main issue seems to be related to her acute CVA and her metastatic adenocarcinoma. Patient continues to have episodes of choking with sips of water, and she is presently nothing by mouth. Neurologic status is about the same.patient's main problem seems to be related to her acute CVA, she also has a right sided hydropneumothorax, possible malignant pleural effusion from metastatic stage IV colon cancer, and non-ST elevation myocardial infarction as well as recent history of pulmonary embolism and DVT. History of quadriplegia and physical debility. Reevaluated today on 02/06/2017, patient is basically about the same. Denies shortness of breath, no headache, denies any pain, continues to have left-sided weakness. Patient remains a bit lethargic, continues to have difficulty swallowing based on nurses report. Labs were reviewed, WBC count is 14.1 hemoglobin is 11.4, basic metabolic profile and renal profile are relatively normal. Objective - Vital Signs Vital signs: Vital Signs Temp 98.9 F 02/06/17 08:44 Pulse 110 H 02/06/17 08:44 Resp 18 02/06/17 08:44 BP 117/78 02/06/17 08:44 Pulse Ox 90 L 02/06/17 08:44 Intake & Output 02/05/17 02/06/17 02/06/17 18:59 06:59 18:59 Intake Total 776 180 0 Balance 776 180 0 Weight 72.5 kg 74 kg Intake: IV 80 180 0.9 80 180 Oral 696 0 Other: Voiding Method Diaper Diaper Diaper # Voids 4 1 # Bowel Movements 1 - Exam GENERAL EXAM: Slightly lethargic,, oriented to person, comfortable in no apparent distress. HEAD: Normocephalic. EYES: Deviated gaze to the right. NOSE: Clear with pink turbinates. THROAT: No erythema or exudates. Poor dentition. NECK: No masses, no JVD. CHEST: No chest wall deformity. Right subclavian Port-A-Cath in place. LUNGS: Few scattered rhonchi, diminished in the bases greater on the right. CVS: S1 and S2 normal with no audible murmur, regular rhythm. ABDOMEN: Slightly distended, normal bowel sounds, no guarding or rigidity. SPINE: No scoliosis or deformity SKIN: No rashes EXTREMITIES: There is significant left-sided weakness. No significant peripheral edema. Peripheral pulses are intact. Neurologic: Dense left-sided weakness is noted. - Labs CBC & Chem 7: 02/05/17 05:36 02/05/17 05:36 Assessment and Plan Plan: #1 Altered mental status with left-sided weakness and gaze deviated to the right side. Initial computed tomography scan of the brain revealed no acute intracranial abnormalities. #2 Right sided hydropneumothorax. Status post right-sided Port-A-Cath placement approximately one week ago. #3 Bilateral pleural effusions right greater than left. #4 Ascites with recent paracentesis was 6.4 L fluid removed. Positive for adenocarcinoma. #5 Metastatic stage IV cancer of the gastrointestinal/biliary origin with secondary omental involvement and ascites and hepatic hepatic metastasis. Most likely pulmonary metastasis as the patient does have multiple pulmonary nodules that are subcentimeter scattered throughout the lungs and subsequent bilateral pleural effusions. #6 Recent pulmonary embolism/DVT, anticoagulated with Xarelto. #7 Cervical dysplasia. #8 Tachycardia with troponin elevation. Echocardiogram pending. Recommendation: Continue present supportive care measures, I would suggest possibly discussing with the family comfort care measures. Or possibly hospice. Time with Patient: Less than 30
[2017-02-06 12:06] LABS: Appearance,Urine Clear (Clear); Bilirubin,Urine Negative (Negative); Glucose,Urine (UA) Negative (Negative); Ketones,Urine Negative (Negative); Leukocyte Esterase,Urine Negative (Negative); Nitrite,Urine Negative (Negative); PH, Urine 6.5 (5.0-8.0); Protein,Urine Negative (Negative); Specific Gravity,Urine 1.008 (1.001-1.035); UA Billing (MACRO vs. MICRO) CHEM; Urobilinogen,Urine <2.0 mg/dL (<2.0)
[2017-02-06] MEDS: THIAMINE 100 MG TAB PO SCH (12:26)
[2017-02-06] MEDS: FOLIC ACID 1 MG TAB PO SCH (12:26)
[2017-02-06] MEDS: MULTIVITAMINS, THERA 1 EACH TAB PO SCH (12:26)
[2017-02-06] MEDS: SODIUM CHLORIDE 0.9% 500 ML IV SCH (14:33)
[2017-02-06] MEDS: ACETAMINOPHEN TAB 325 MG TAB PO PRN (17:13)
--- NOTE | 2017-02-06 21:02 | PN ---
PROGRESS NOTE DATE OF SERVICE: 02/06/17. INTERVAL HISTORY: This 51-year-old woman who was admitted with left-sided weakness also had conjugated eye deviation also. Patient also had possible features of a brainstem stroke. MRI could not be done. Of note, patient also had metastatic malignancy with significant hydronephrosis on the right side. The patient also had ascites also developing at this point. The patient closely monitored. PAST MEDICAL HISTORY: Reviewed. REVIEW OF SYSTEMS: Could not be taken the patient is mildly confused. CURRENT MEDICATIONS ARE: Reviewed and include: 1. Tylenol 650 q.6 p.r.n. 2. [place] 5 mg. 3. DuoNeb q.i.d. and p.r.n. 4. Aspirin 81 mg. 5. Lipitor 20 mg. 6. Folic acid 1 mg. 7. Lasix 20 mg daily. 8. Multivitamins one p.o. daily. 9. Metoprolol 10.5 mg daily. 10.Multivitamin. 11.Protonix 40 mg. 12.K-Dur. 13.Xarelto 20 mg daily. 14.Vitamin B1 daily. PHYSICAL EXAM: Patient is stuporous. Pulse is 100, blood pressure is 197/72. Respiratory rate 16. Temperature 97.2, pulse ox 97% on 2 L. HEENT: Conjunctivae normal. Oral mucosa moist. Neck is no jugular venous distention. No carotid bruit. No lymph node enlargement. Eyes: Conjugated deviation to the right present. Cardiovascular S1, S2. No S3, no S4. Respiratory: Breath sounds diminished in the bases. A few scattered rhonchi. No crackles. ABDOMEN: Soft, nontender. No mass palpable. Legs no edema. No swelling. Central nervous system: Significant weakness on the left side. Diffuse weakness was present. Joints: No active deforming arthropathy. LABS: WBC 14.1. Otherwise, INR is 1.5, calcium is 8.3. UA noted. ASSESSMENT: 1. Left-sided weakness and gaze deviation to the right, possibly secondary to acute cerebrovascular accident. Possible brainstem stroke. 2. Change in mental status, metabolic encephalopathy secondary to cerebrovascular incident. 3. Right-sided pneumothorax, status post right-sided [id number]. 4. Bilateral pleural effusion right more the left. 5. Ascites status post bilateral thoracocentesis metastatic stage IV colon cancer, possibly gastrointestinal biliary etiology secondary to malignant involvement of the ascites and hepatic METS. 6. Recent deep vein thrombosis and pulmonary embolism on anticoagulation with Xarelto. 7. Cervical . 8. Tachycardia. 9. Increased WBC. RECOMMENDATIONS AND DISCUSSION: Recommend to continue current medications, symptomatic treatment. Overall prognosis extremely guarded because of multiple complex medical issues at this time. Otherwise I would recommend to continue the current management and continue symptomatic treatment. Continue the bronchodilators, continue symptomatic treatment. Closely follow closely follow with consultants. Prognosis guarded. Aspiration precautions. MMANDREIAL / JORGEN: [id number] / MTDD
[2017-02-06] MEDS: ATORVASTATIN 20 MG TAB PO SCH ×2 (21:08→22:57)
[2017-02-06 21:21] LABS: Glucose,Whole Blood 113 mg/dL (75-99)
[2017-02-07] MEDS: ACETAMINOPHEN TAB 325 MG TAB PO PRN (02:44)
[2017-02-07] MEDS: PANTOPRAZOLE 40 MG TABLET PO SCH (06:10)
[2017-02-07] MEDS: FUROSEMIDE 20 MG TAB PO SCH (08:51)
[2017-02-07] MEDS: METOPROLOL TARTRATE 12.5 MG TAB PO SCH ×2 (08:51→20:32)
[2017-02-07] MEDS: ASPIRIN 81 MG PO SCH (08:51)
[2017-02-07] MEDS: POTASSIUM CHLORIDE ER 10 MEQ TAB.ER.PRT PO SCH (08:51)
[2017-02-07] MEDS: RIVAROXABAN 10 MG TAB PO SCH (08:51)
--- NOTE | 2017-02-07 10:26 | P.PN ---
Subjective Progress Note Date: 02/07/17 Principal diagnosis: Acute CVA, right-sided hydropneumothorax This is a very pleasant 51-year-old female patient who follows with Dr. Hadley as her primary care physician. She has a history of chronic obstructive pulmonary disease, chronic and ongoing tobacco dependence, anxiety. 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 She has had issues with ascites and bilateral pleural effusions she has undergone paracentesis. She also has a history of DVT/pulmonary embolism and is status post [place] filter placement and she remains on Xarelto. She was seen here less than one month ago by Dr. Walter. She did have bilateral pleural effusions then. Ultrasound revealed a right-sided pleural effusion at 9.0 cm and to a lesser extent left pleural effusion. No thoracentesis was performed at that time. She was diuresed and did undergo a paracentesis with approximate 6.4 L of serous fluid removed which improved her pulmonary status. The peritoneal fluid was positive for metastatic carcinoma as well. A barium enema did reveal a 2.7 cm long apple core lesion/colon cancer in the ascending colon. She did improve and was subsequently discharged on 01/12/2017 with plans for palliative treatment. She re-presented to the emergency room yesterday by her family after being found to have left-sided weakness and altered mental status. A computed tomography scan of the brain did not reveal any intracranial abnormalities and no masses or lesions, no acute infarcts. Her chest x-ray revealed a right- sided hydropneumothorax. She is status post right-sided Port-A-Cath placement done approximately a week ago. A CT angiogram of the neck revealed no abnormalities within the internal carotids or the [place]. The right- sided pneumothorax with subsequent chest x-ray suggests may be larger than the originally reported. We're consulted for the same. She is seen on the selective care unit. She is somewhat of a poor historian. She does have some left-sided weakness but is answering yes and no questions appropriately. She is requiring to be fed by the nursing assistants. There is no evidence of aspiration. Speech pathology is in the room. She was quite short of breath while laying flat but is currently maintaining good O2 saturations in the upper 90s on 2 L/m per nasal cannula. Prior to that she was maintaining O2 saturations in the 90s on room air. An ultrasound of the chest is pending. Reevaluated today on 02/05/2017, patient is basically about the same. Family happened to be at bedside, and I explained to the family that she does have pleural effusion and small pneumothorax, thoracentesis could be considered, however at this point her main issue seems to be related to her acute CVA and her metastatic adenocarcinoma. Patient continues to have episodes of choking with sips of water, and she is presently nothing by mouth. Neurologic status is about the same.patient's main problem seems to be related to her acute CVA, she also has a right sided hydropneumothorax, possible malignant pleural effusion from metastatic stage IV colon cancer, and non-ST elevation myocardial infarction as well as recent history of pulmonary embolism and DVT. History of quadriplegia and physical debility. Reevaluated today on 02/06/2017, patient is basically about the same. Denies shortness of breath, no headache, denies any pain, continues to have left-sided weakness. Patient remains a bit lethargic, continues to have difficulty swallowing based on nurses report. Labs were reviewed, WBC count is 14.1 hemoglobin is 11.4, basic metabolic profile and renal profile are relatively normal. Reevaluated today on 02/07/2017, patient is about the same. Does not seem to be in any form of respiratory distress. Patient has dense hemiplegia on the left side, and she looks chronically ill. Objective - Vital Signs Vital signs: Vital Signs Temp 98.5 F 02/07/17 08:00 Pulse 116 H 02/07/17 08:00 Resp 16 02/07/17 08:00 BP 115/81 02/07/17 08:00 Pulse Ox 94 L 02/07/17 08:26 Intake & Output 02/06/17 02/07/17 02/07/17 18:59 06:59 18:59 Intake Total 80 Balance 80 Weight 73.5 kg Intake: Oral 80 Other: Voiding Method Diaper Diaper Diaper # Voids 2 1 # Bowel Movements 2 1 - Exam GENERAL EXAM: Slightly lethargic,, oriented to person, comfortable in no apparent distress. HEAD: Normocephalic. EYES: Deviated gaze to the right. NOSE: Clear with pink turbinates. THROAT: No erythema or exudates. Poor dentition. NECK: No masses, no JVD. CHEST: No chest wall deformity. Right subclavian Port-A-Cath in place. LUNGS: Few scattered rhonchi, diminished in the bases greater on the right. CVS: S1 and S2 normal with no audible murmur, regular rhythm. ABDOMEN: Slightly distended, normal bowel sounds, no guarding or rigidity. SPINE: No scoliosis or deformity SKIN: No rashes EXTREMITIES: There is significant left-sided weakness. No significant peripheral edema. Peripheral pulses are intact. Neurologic: Dense left-sided weakness is noted. - Labs CBC & Chem 7: 02/05/17 05:36 02/05/17 05:36 Labs: Abnormal Lab Results - Last 24 Hours (Table) 02/06/17 Range/Units 21:20 POC Glucose (mg/dL) 113 H (75-99) mg/dL Microbiology - Last 24 Hours (Table) 02/06/17 11:00 Urine Culture - Preliminary Urine,Catheterized Assessment and Plan Plan: #1 Altered mental status with left-sided weakness and gaze deviated to the right side. Secondary to acute CVA #2 Right sided hydropneumothorax. Status post right-sided Port-A-Cath placement approximately one week ago. Considering the size of the pneumothorax , and considering the sudden the pleural effusion, I felt it is not necessary at this point to have any further invasive measures. No need for thoracentesis , and no need for chest tube placement. The right pleural effusion is most likely malignant and related to her ascites and malignant peritoneal fluid unless for otherwise. #3 Bilateral pleural effusions right greater than left. #4 Ascites with recent paracentesis was 6.4 L fluid removed. Positive for adenocarcinoma. #5 Metastatic stage IV cancer of the gastrointestinal/biliary origin with secondary omental involvement and ascites and hepatic hepatic metastasis. Most likely pulmonary metastasis as the patient does have multiple pulmonary nodules that are subcentimeter scattered throughout the lungs and subsequent bilateral pleural effusions. #6 Recent pulmonary embolism/DVT, anticoagulated with Xarelto. #7 Cervical dysplasia. #8 Tachycardia with troponin elevation. Echocardiogram pending. Recommendation: Continue present supportive care measures, I would suggest possibly discussing with the family comfort care measures. Or possibly hospice. Time with Patient: Less than 30
[2017-02-07] MEDS: FOLIC ACID 1 MG TAB PO SCH (12:15)
[2017-02-07] MEDS: MULTIVITAMINS, THERA 1 EACH TAB PO SCH (12:15)
[2017-02-07] MEDS: THIAMINE 100 MG TAB PO SCH (12:15)
[2017-02-07] MEDS: SODIUM CHLORIDE 0.9% 500 ML IV SCH (12:15)
[2017-02-07 13:22] LABS: Anisocytosis Slight; Basophils # (A) 0.1 k/uL (0-0.2); Basophils % (A) 1 %; CH 24.7; CHCM 28.8; Eosinophils # (A) 0.5 k/uL (0-0.7); Eosinophils % (A) 3 %; HCT 41.4 % (34.0-46.0); HDW 2.84; HGB 11.9 gm/dL (11.4-16.0); Hypochromasia Marked; Luc # (Auto) 0.12; Luc % (Auto) 1; Lymphocytes # (A) 0.9 k/uL (1.0-4.8); Lymphocytes % (A) 6 %; MCH 24.8 pg (25.0-35.0); MCHC 28.8 g/dL (31.0-37.0); MCV 85.9 fL (80.0-100.0); Mean Platelet Volume 7.6; Monocytes # (A) 0.7 k/uL (0-1.0); Monocytes % (A) 4 %; Neutrophils # (A) 13.7 k/uL (1.3-7.7); Neutrophils % (A) 86 %; RBC 4.82 m/uL (3.80-5.40); RDW 17.4 % (11.5-15.5); WBC (Perox) 16.22
[2017-02-07 14:20] LABS: Anion Gap 7 mmol/L; Blood Urea Nitrogen 17 mg/dL (7-17); Calcium 8.6 mg/dL (8.4-10.2); Carbon Dioxide 25 mmol/L (22-30); Chloride 110 mmol/L (98-107); Glucose 122 mg/dL (74-99); Non-African American GFR(MDRD) >60 (>60 ml/min/1.73 sqM); Potassium 4.3 mmol/L (3.5-5.1); Sodium 142 mmol/L (137-145)
--- NOTE | 2017-02-07 16:36 | PN ---
PROGRESS NOTE DATE OF SERVICE: 02/07/2017 INTERVAL HISTORY: This 51-year-old woman was admitted with left-sided weakness and gaze paralysis, possibly pontine stroke, also had significant malignancy. Also patient had right hydropneumothorax. Patient also had stage IV colon cancer on chemotherapy. Also the patient is barely responsive at this time. PAST MEDICAL HISTORY: Reviewed. REVIEW OF SYSTEM: Could not be taken. CURRENT MEDICATIONS: 1. Tylenol 650 q.6 p.r.n. 2. [place] 5 mg q.6h p.r.n. 3. DuoNeb q.i.d. and p.r.n. 4. Aspirin 81 mg. 5. Lipitor 20 mg. 6. Folic acid 1 mg. 7. Lasix 20 mg. 8. Lopressor 12.5 mg b.i.d. 9. Protonix 40 mg daily. 10.K-Dur 10 mEq daily. 11.Xarelto 20 mg daily. 12.Vitamin B 100 mg p.o. daily. PHYSICAL EXAM: Patient is stuporous. Pulse is 108, blood pressure 120/88, respirations 16, temperature 98.4, pulse ox 93% on 2 L. HEENT: Conjunctivae normal. Oral mucosa moist. Neck is no jugular venous distention. No carotid bruit. No lymph node enlargement. Conjugate gaze, paralysis to eyes to the right eye present. Otherwise minimal movement on the right side. Significant weakness of the left side present. CARDIOVASCULAR: S1, S2. No S3, no S4. RESPIRATORY: Breath sounds diminished in the bases. A few scattered rhonchi and crackles. ABDOMEN: Soft, ascites present. LEGS: No edema. NERVOUS SYSTEM: As mentioned earlier. LAB INVESTIGATIONS: At this time shows WBC 16, hemoglobin 11.9, glucose 100 and other labs are noted. ASSESSMENT: 1. Left-sided weakness and gaze deviation to the right, possibly secondary to acute cerebrovascular accident, possibly brainstem stroke. 2. Change in mental status, metabolic encephalopathy secondary to CVI. 3. Right-sided pneumothorax, possible hydropneumothorax status post Fish-[id number]. 4. Bilateral pleural effusion right more than the left. 5. Ascites status post metastatic stage IV colon cancer possibly GI biliary etiology secondary to malignant involvement of ascites and hepatic metastasis. 6. Recent DVT and pulmonary embolism on anticoagulant with Xarelto. 7. Tachycardia. 8. Increased WBC. 9. FULL CODE. RECOMMENDATIONS AND DISCUSSION: This 51-year-old woman who presented with multiple complex medical issues, we will monitor the patient closely. Continue the current management and symptomatic treatment. Aspiration precautions. Otherwise I would recommend to continue with antiplatelet agents and as well as anticoagulants. Prognosis extremely guarded. I had a detailed discussion with the mother and family at the bedside. We are also inquiring about the options of palliative care and comfort measures. I will discuss with Dr. Bhat regarding the overall prognosis, which seems to be extremely grave because of the multiple complex medical issues as listed earlier. Anyway, further recommendations to follow. MMODL / IJN: [id number] /
[2017-02-07] MEDS: ATORVASTATIN 20 MG TAB PO SCH (20:32)
[2017-02-08 06:09] LABS: Anisocytosis Slight; Basophils # (A) 0.1 k/uL (0-0.2); Basophils % (A) 1 %; CH 23.8; CHCM 28.2; Eosinophils # (A) 0.3 k/uL (0-0.7); Eosinophils % (A) 2 %; HCT 40.2 % (34.0-46.0); HDW 2.78; HGB 11.5 gm/dL (11.4-16.0); Hypochromasia Marked; Luc % (Auto) 1; Lymphocytes % (A) 7 %; MCH 24.2 pg (25.0-35.0); MCHC 28.6 g/dL (31.0-37.0); MCV 84.6 fL (80.0-100.0); Mean Platelet Volume 7.8; Monocytes # (A) 0.5 k/uL (0-1.0); Monocytes % (A) 4 %; Neutrophils # (A) 12.5 k/uL (1.3-7.7); Neutrophils % (A) 86 %; RBC 4.75 m/uL (3.80-5.40); RDW 18.7 % (11.5-15.5); WBC 14.5 k/uL (3.8-10.6); WBC (Perox) 14.56
[2017-02-08 06:21] LABS: Anion Gap 10 mmol/L; Blood Urea Nitrogen 15 mg/dL (7-17); Calcium 8.8 mg/dL (8.4-10.2); Carbon Dioxide 22 mmol/L (22-30); Chloride 110 mmol/L (98-107); Glucose 106 mg/dL (74-99); Non-African American GFR(MDRD) >60 (>60 ml/min/1.73 sqM); Potassium 4.5 mmol/L (3.5-5.1); Sodium 142 mmol/L (137-145)
[2017-02-08] MEDS: PANTOPRAZOLE 40 MG TABLET PO SCH (06:59)
[2017-02-08] MEDS: FUROSEMIDE 20 MG TAB PO SCH (10:16)
[2017-02-08] MEDS: RIVAROXABAN 10 MG TAB PO SCH (10:17)
[2017-02-08] MEDS: ASPIRIN 81 MG PO SCH (10:17)
[2017-02-08] MEDS: POTASSIUM CHLORIDE ER 10 MEQ TAB.ER.PRT PO SCH (10:17)
[2017-02-08] MEDS: METOPROLOL TARTRATE 12.5 MG TAB PO SCH ×2 (10:17→20:03)
[2017-02-08] MEDS: MULTIVITAMINS, THERA 1 EACH TAB PO SCH (12:06)
[2017-02-08] MEDS: THIAMINE 100 MG TAB PO SCH (12:06)
[2017-02-08] MEDS: FOLIC ACID 1 MG TAB PO SCH (12:06)
[2017-02-08] MEDS: SODIUM CHLORIDE 0.9% 500 ML IV SCH (12:07)
--- NOTE | 2017-02-08 18:10 | PN ---
PROGRESS NOTE DATE OF SERVICE: 02/08/2017 INTERVAL HISTORY: This 51-year-old woman was admitted with left-sided weakness and possibly had a pontine stroke. The patient also had possibly colon cancer with METS also. Patient also had right hydropneumothorax as well. The patient is stuporous, but able to respond to the questions at this time. No chest pain. No palpitations. No fever. EXAM: Pulse is 107, blood pressure 117/72, respiration 18, temperature 98.1, pulse ox 94% on 2 L. HEENT: Conjunctivae normal. Oral mucosa moist. Neck is no jugular venous distention. No carotid bruit. No lymph node enlargement. Cardiovascular system: S1, S2. No S3, no S4. Respirations: Breath sounds diminished in the bases. A few scattered rhonchi and crackles. the right side. ABDOMEN: Soft, nontender. Legs no edema no swelling. Central nervous system: Significant weakness of the left side, conjugated gaze also present. LABS: WBC 14.2, hemoglobin 7.5. BMP noted. ASSESSMENT: 1. Left-sided weakness and gait deviation to the right possibly secondary to acute cerebrovascular accident, possibly pontine stroke and brainstem stroke. 2. Change in mental status, metabolic encephalopathy secondary to CVI. 3. Right-sided pneumothorax and possible hydropneumothorax, possibly metastatic. 4. Bilateral pleural effusion right more than the left. 5. Ascites status post paracentesis. Secondary to possibly metastatic stage IV colon cancer or gastrointestinal biliary etiology cancer. 6. Recent deep vein thrombosis and pulmonary embolism on anticoagulation with Xarelto. 7. Tachycardia. 8. Increased WBC. 9. FULL CODE. RECOMMENDATIONS AND DISCUSSION: Recommend to continue current medications, symptomatic treatment, current management. I had a detailed discussion with the family yesterday. Dr. Bhat also discussed with the patient. At this time the family seems to be opting for continued rehab and then consider further options at this time. We will continue to monitor. Prognosis is extremely guarded because of above mentioned multiple medical problems. . MMODL / IJN: [id number] / MTDD
[2017-02-08] MEDS: ATORVASTATIN 20 MG TAB PO SCH (20:04)
--- NOTE | 2017-02-08 20:23 | P.PN ---
Subjective Progress Note Date: 02/08/17 The patient is a 51-year-old woman with recent right MCA stroke with left hemiplegia. The patient is drowsy with eyes closed but able to speak. She denies any complaints. She denied headache. She denied neck pain. She is still unable to move the left arm or leg. She does have some difficulty opening her eyes. She is oriented to person and place. She does follow simple commands. She does have dysphagia and is on a pured diet The patient has multiple medical problems including stage IV metastatic adenocarcinoma. She has a history of recent pulmonary embolus, liver metastases and ascites Objective - Vital Signs Vital signs: Vital Signs Temp 98.1 F 02/08/17 16:00 Pulse 107 H 02/08/17 16:00 Resp 18 02/08/17 16:00 BP 117/72 02/08/17 16:00 Pulse Ox 94 L 02/08/17 16:00 Intake & Output 02/08/17 02/08/17 02/09/17 06:59 18:59 06:59 Intake Total 411 Balance 411 Weight 74.5 kg 74.5 kg Intake: IV 0 0.9 0 Oral 411 Other: Voiding Method Diaper Diaper # Voids 1 - Constitutional General appearance: Present: cooperative - Respiratory Respiratory: bilateral: rhonchi - Cardiovascular Rhythm: regular - Neurologic Neurologic Comment(s): Neurologic examination mental status: The patient is lethargic but able to respond verbally and cooperative. She is oriented to person and place. Next Cranial nerve examination she has right gaze deviation X Motor examination left hemiplegia - Labs CBC & Chem 7: 02/08/17 05:45 02/08/17 05:45 Labs: Abnormal Lab Results - Last 24 Hours (Table) 02/08/17 02/08/17 Range/Units 05:45 05:45 WBC 14.5 H (3.8-10.6) k/uL MCH 24.2 L (25.0-35.0) pg MCHC 28.6 L (31.0-37.0) g/dL RDW 18.7 H (11.5-15.5) % Neutrophils # 12.5 H (1.3-7.7) k/uL Chloride 110 H (98-107) mmol/L Glucose 106 H (74-99) mg/dL Microbiology - Last 24 Hours (Table) 02/06/17 11:00 Urine Culture - Final Urine,Catheterized Assessment and Plan (1) Cerebrovascular accident Current Visit: Yes Status: Acute SNOMED Code(s): 817896471 (2) Metastatic adenocarcinoma Current Visit: Yes Status: Acute Priority: High SNOMED Code(s): 033774412 (3) Ascites Current Visit: No Status: Chronic SNOMED Code(s): 394949704 (4) Hydropneumothorax Current Visit: Yes Status: Acute SNOMED Code(s): 99711548 Plan: The patient is a 51-year-old woman with stage IV metastatic adenocarcinoma. She has had recent pulmonary embolus and is on anti-coagulation. She has had a recent right MCA stroke with left hemiplegia. She has lethargy as well as dysphagia. The patient has had 2 CAT scans of the brain both unchanged. There was evidence of focal hypodensity near the right sided splenium of corpus callosum. Patient had computed tomography scan on February 02 and February 04 and there was stability of this hypodensity. There was no contrast enhancement seen on February [address] study.
--- NOTE | 2017-02-08 22:07 | P.PN ---
Subjective Progress Note Date: 02/08/17 the patient has persistent dense weakness in the left side, as well as left- sided inattention. Responses are slow but appropriate. there is marked left facial droop. no fevers, chills, nausea or vomiting . she is tolerating soft foods well Objective - Vital Signs Vital signs: Vital Signs Temp 98.7 F 02/08/17 20:00 Pulse 112 H 02/08/17 20:00 Resp 16 02/08/17 20:00 BP 111/78 02/08/17 20:00 Pulse Ox 92 L 02/08/17 20:00 Intake & Output 02/08/17 02/08/17 02/09/17 06:59 18:59 06:59 Intake Total 411 Balance 411 Weight 74.5 kg 74.5 kg Intake: IV 0 0.9 0 Oral 411 Other: Voiding Method Diaper Diaper Diaper # Voids 1 1 # Bowel Movements 1 - Constitutional General appearance: Present: no acute distress - EENT Eyes: Present: PERRLA - Respiratory Respiratory: bilateral: CTA - Cardiovascular Rhythm: regular Heart sounds: normal: S1, S2 - Gastrointestinal General gastrointestinal: Present: normal bowel sounds, soft - Neurologic Neurologic: Present: CNII-XII intact - Musculoskeletal Musculoskeletal: Present: generalized weakness, left sided weakness - Psychiatric Psychiatric Comment(s): responses are appropriate, but affect is quite slow Psychiatric: Present: A&O x's 3 - Labs CBC & Chem 7: 02/08/17 05:45 02/08/17 05:45 Labs: Abnormal Lab Results - Last 24 Hours (Table) 02/08/17 02/08/17 Range/Units 05:45 05:45 WBC 14.5 H (3.8-10.6) k/uL MCH 24.2 L (25.0-35.0) pg MCHC 28.6 L (31.0-37.0) g/dL RDW 18.7 H (11.5-15.5) % Neutrophils # 12.5 H (1.3-7.7) k/uL Chloride 110 H (98-107) mmol/L Glucose 106 H (74-99) mg/dL Microbiology - Last 24 Hours (Table) 02/06/17 11:00 Urine Culture - Final Urine,Catheterized Assessment and Plan (1) Cerebrovascular accident Narrative/Plan: the patient continues to have dense left-sided hemiplegia. There has been no significant improvement since admission. Appetite is diminished, but she is able to swallow liquids and soft foods well. she is currently on xarelto and aspirin Current Visit: Yes Status: Acute Code(s): I63.9 - CEREBRAL INFARCTION, UNSPECIFIED SNOMED Code(s): 825550686 (2) Metastatic adenocarcinoma Narrative/Plan: the prognosis and options were discussed in detail with the patient's family including the mother and other family members, who were present at the bedside. The patient herself was quite lethargic and would drift off to sleep. It was reiterated that her cancer is stage IV, and not curable. The objective of the planned treatment had been prolongation of life and palliation of symptoms. Given her recent major CVA and very poor performance status, she is not a candidate for active treatment at this time. This would have a very high risks of causing severe adverse events. They expressed understanding of the same. Therefore the options include transferred to subacute rehabilitation, with reassessment in the office in 2-3 weeks. If performance status is improved sufficiently, that active treatment can be considered. They were advised that the patient has wide spread metastasis including significant liver involvement. Therefore there is a strong possibility that her cancer could continue to progress, leading to further deterioration in her performance status. In that situation, transition to comfort care would be appropriate. Comfort care/hospice at this point was also discussed, as unfortunately, realistically, the chances of significant improvement in her performance status occurring fast enough, are slim. The family acknowledged understanding of this, but would like to try the rehabilitation option. I also discussed changing her CODE STATUS to No code/no CPR, as she is unlikely to benefit from aggressive life support measures, given her current performance status and underying metastatic malignancy. The mother stated that at this time she is working on the power of transactional attorney, and we will be discussing changing the CODE STATUS with the patient. Current Visit: Yes Status: Acute Priority: High Code(s): C79.9 - SECONDARY MALIGNANT NEOPLASM OF UNSPECIFIED SITE SNOMED Code(s): 563499538 (3) Pulmonary emboli Current Visit: No Status: Chronic Code(s): I26.99 - OTHER PULMONARY EMBOLISM WITHOUT ACUTE COR PULMONALE SNOMED Code(s): 28639121
[2017-02-09 06:27] LABS: Anisocytosis Slight; Basophils # (A) 0.1 k/uL (0-0.2); Basophils % (A) 1 %; CH 24.5; CHCM 28.2; Eosinophils # (A) 0.4 k/uL (0-0.7); Eosinophils % (A) 3 %; HCT 40.6 % (34.0-46.0); HDW 2.83; HGB 11.5 gm/dL (11.4-16.0); Hypochromasia Marked; Luc # (Auto) 0.12; Luc % (Auto) 1; Lymphocytes % (A) 6 %; MCH 24.8 pg (25.0-35.0); MCHC 28.4 g/dL (31.0-37.0); MCV 87.2 fL (80.0-100.0); Mean Platelet Volume 7.9; Monocytes # (A) 0.6 k/uL (0-1.0); Monocytes % (A) 4 %; Neutrophils # (A) 13.3 k/uL (1.3-7.7); Neutrophils % (A) 86 %; RBC 4.65 m/uL (3.80-5.40); RDW 17.1 % (11.5-15.5); WBC 15.5 k/uL (3.8-10.6); WBC (Perox) 15.75
[2017-02-09 06:37] LABS: Anion Gap 9 mmol/L; Blood Urea Nitrogen 18 mg/dL (7-17); Calcium 8.7 mg/dL (8.4-10.2); Carbon Dioxide 26 mmol/L (22-30); Chloride 109 mmol/L (98-107); Glucose 91 mg/dL (74-99); Non-African American GFR(MDRD) >60 (>60 ml/min/1.73 sqM); Potassium 4.4 mmol/L (3.5-5.1); Sodium 144 mmol/L (137-145)
[2017-02-09] MEDS: PANTOPRAZOLE 40 MG TABLET PO SCH (06:44)
[2017-02-09] MEDS: ASPIRIN 81 MG PO SCH ×2 (09:52→10:14)
[2017-02-09] MEDS: FUROSEMIDE 20 MG TAB PO SCH ×2 (09:52→10:14)
[2017-02-09] MEDS: FOLIC ACID 1 MG TAB PO SCH ×2 (09:53→10:15)
[2017-02-09] MEDS: MULTIVITAMINS, THERA 1 EACH TAB PO SCH ×2 (09:53→10:15)
[2017-02-09] MEDS: RIVAROXABAN 10 MG TAB PO SCH ×2 (09:53→10:14)
[2017-02-09] MEDS: METOPROLOL TARTRATE 12.5 MG TAB PO SCH ×3 (09:53→21:36)
[2017-02-09] MEDS: POTASSIUM CHLORIDE ER 10 MEQ TAB.ER.PRT PO SCH ×2 (09:53→10:14)
[2017-02-09] MEDS: THIAMINE 100 MG TAB PO SCH ×2 (09:54→10:14)
--- NOTE | 2017-02-09 13:05 | XR ---
EXAMINATION TYPE: XR chest 1V DATE OF EXAM: 02/09/2017 COMPARISON: Prior chest x-ray 02/05/2017 HISTORY: Hydropneumothorax, shortness of breath TECHNIQUE: Single frontal view of the chest is obtained. FINDINGS: There is some improvement in the right-sided pneumothorax. Persistent basilar density is p resent, the hemidiaphragms are secured, heart size thought likely to be stable. The port is present a s on previous exam the right pectoral region, distal tip overlying the superior vena cava. There are overlying cardiac leads. IMPRESSION: Some improvement in the right hydropneumothorax. Basilar effusions and associated edema versus atelectasis, correlate to exclude pneumonia. Patient is rotated. Cardiomegaly is suspected.
[2017-02-09] MEDS: SODIUM CHLORIDE 0.9% 500 ML IV SCH (16:06)
[2017-02-09] MEDS: MORPHINE SULFATE 10 MG/ML SYRINGE IVP PRN ×2 (16:20→18:05)
--- NOTE | 2017-02-09 16:43 | P.PN ---
Subjective Patient with the metastatic colon cancer is admitted for hydropneumothorax. Patient was admitted for right MCA stroke with significant weakness on the left side. At extensive discussion with the patient today regarding hospice and comfort care. Patient's family wanted her to be full code until today after discussion family made the decision of hospice patient will be made comfort care , transferred [facility] care patient was started on IV morphine for pain and comfort Objective - Vital Signs Vital signs: Vital Signs Temp 98 F 02/09/17 12:00 Pulse 108 H 02/09/17 16:00 Resp 30 H 02/09/17 16:00 BP 118/82 02/09/17 12:00 Pulse Ox 93 L 02/09/17 12:00 Intake & Output 02/08/17 02/09/17 02/09/17 18:59 06:59 18:59 Intake Total 411 600 Balance 411 600 Weight 74.5 kg 72.5 kg Intake: IV 0 0.9 0 Oral 411 600 Other: Voiding Method Diaper Diaper Diaper # Voids 1 0 # Bowel Movements 1 0 - Exam PHYSICAL EXAMINATION: GENERAL: The patient is alert and oriented x3, appears to be tired little bit to Keep it up in respiratory distress HEENT: Pupils are round and equally reacting to light. EOMI. No scleral icterus. No conjunctival pallor. Normocephalic, atraumatic. No pharyngeal erythema. No thyromegaly. CARDIOVASCULAR: S1 and S2 present. No murmurs, rubs, or gallops. PULMONARY: Chest is clear to auscultation, no wheezing or crackles. ABDOMEN: Soft, nontender, nondistended, normoactive bowel sounds. No palpable organomegaly. MUSCULOSKELETAL: No joint swelling or deformity. EXTREMITIES: No cyanosis, clubbing, or pedal edema. NEUROLOGICAL: Complete left sided flaccid paralysis SKIN: No rashes. - Labs CBC & Chem 7: 02/09/17 05:33 02/09/17 05:33 Labs: Abnormal Lab Results - Last 24 Hours (Table) 02/09/17 02/09/17 Range/Units 05:33 05:33 WBC 15.5 H (3.8-10.6) k/uL MCH 24.8 L (25.0-35.0) pg MCHC 28.4 L (31.0-37.0) g/dL RDW 17.1 H (11.5-15.5) % Neutrophils # 13.3 H (1.3-7.7) k/uL Chloride 109 H (98-107) mmol/L BUN 18 H (7-17) mg/dL Assessment and Plan Plan: #1 left-sided weakness secondary to right MCA stroke. #2 toxic and metabolic encephalopathy #3 right-sided hydropneumothorax with metastatic colon cancer #4 malignant ascites #5 metastatic adenocarcinoma extremely poor prognosis not a candidate for chemotherapy After extensive discussion with the family family decided on going with hospice patient will be made comfort care will be transferred out of [facility] to care. Patient will be started on morphine for pain and comfort hospice and palliative care was consulted. Initially I ordered a chest x-ray before family made the decision of hospice which is elevated at this point of time
[2017-02-09] MEDS: ATORVASTATIN 20 MG TAB PO SCH (21:36)
[2017-02-09] MEDS: ACETAMINOPHEN TAB 325 MG TAB PO PRN (21:41)
[2017-02-10] MEDS: FOLIC ACID 1 MG TAB PO SCH (10:12)
[2017-02-10] MEDS: ASPIRIN 81 MG PO SCH (10:12)
[2017-02-10] MEDS: MULTIVITAMINS, THERA 1 EACH TAB PO SCH (10:12)
[2017-02-10] MEDS: THIAMINE 100 MG TAB PO SCH (10:12)
[2017-02-10] MEDS: PANTOPRAZOLE 40 MG TABLET PO SCH (10:12)
[2017-02-10] MEDS: RIVAROXABAN 10 MG TAB PO SCH (10:12)
[2017-02-10] MEDS: POTASSIUM CHLORIDE ER 10 MEQ TAB.ER.PRT PO SCH (10:12)
[2017-02-10] MEDS: METOPROLOL TARTRATE 12.5 MG TAB PO SCH (10:12)
--- NOTE | 2017-02-10 12:06 | P.DS ---
Providers Date of admission: 02/02/17 15:32 Expected date of discharge: 02/10/17 Attending physician: Adam Cardenas Consults: 02/02/17 15:32 Consult Physician Urgent Consulting Provider: Gely Kenny Consult Reason/Comments: cva Do you want consulting provider notified?: Yes 02/02/17 15:33 Consult Physician Urgent Consulting Provider: Hi Rojas Consult Reason/Comments: Right hydropneumothorax Do you want consulting provider notified?: Yes 02/02/17 15:34 Consult Physician Urgent Consulting Provider: Dario Bhat Consult Reason/Comments: Oncological care Do you want consulting provider notified?: Already Contacted 02/02/17 15:35 Consult Physician Stat Consulting Provider: Flores Matthew Consult Reason/Comments: Hydropneumothorax Do you want consulting provider notified?: Already Contacted Primary care physician: Delonte Choudhary [facility] Course: Final Diagnoses #1 left-sided weakness secondary to right MCA stroke. #2 toxic and metabolic encephalopathy #3 right-sided hydropneumothorax with metastatic colon cancer #4 malignant ascites #5 metastatic adenocarcinoma extremely poor prognosis not a candidate for chemotherapy Hospital course:Patient with the metastatic colon cancer is admitted for hydropneumothorax. Patient was admitted for right MCA stroke with significant weakness on the left side. Evaluated by multiple consults. At extensive discussion with the patient, regarding hospice and comfort care. After discussion ,family made the decision of hospice.Patient made comfort care. Patient will be discharged to [facility] today. The impression and plan of care has been dictated as directed. : I performed a history and examination of this patient, discussed the same with the dictator. I agree with the dictator's note ,documented as a scribe. Any additional findings or plans will be noted. Patient Condition at Discharge: Poor Plan - Discharge Summary New Discharge Prescriptions: New LORazepam [Ativan] 0.5 mg SL TID PRN #20 tab PRN Reason: Anxiety MORPHINE ORAL YUNIOR CONC 20mg/mL [Roxanol Oral Soln Conc 20MG/ML] 10 mg SL Q4H PRN #30 ml PRN Reason: Pain Scopolamine 1.5MG/72Hr Patch [TransDerm Scop] 1 patch TRANSDERM Q72H #3 patch Ipratropium-Albuterol Nebulize [Duoneb 0.5 mg-3 mg/3 ml Soln] 3 ml INHALATION RT-Q6H PRN #120 ampul.neb PRN Reason: Shortness Of Breath Or Wheezing Continue Furosemide [Lasix] 20 mg PO DAILY Discontinued Rizatriptan Benzoate [Rizatriptan] 10 mg PO DAILY PRN PRN Reason: Migraine Headache Ranitidine HCl [Zantac] 150 mg PO BID Hydrocodone/Acetaminophen [[place] 5-325] 1 tab PO Q6HR PRN PRN Reason: Pain Rivaroxaban [Xarelto] 20 mg PO DAILY Potassium Chloride [Klor-Con 10] 10 meq PO DAILY Discharge Medication List Furosemide [Lasix] 20 mg PO DAILY 01/22/17 [History] Ipratropium-Albuterol Nebulize [Duoneb 0.5 mg-3 mg/3 ml Soln] 3 ml INHALATION RT -Q6H PRN #120 ampul.neb 02/10/17 [Rx] LORazepam [Ativan] 0.5 mg SL TID PRN #20 tab 02/10/17 [Rx] MORPHINE ORAL YUNIOR CONC 20mg/mL [Roxanol Oral Soln Conc 20MG/ML] 10 mg SL Q4H PRN #30 ml 02/10/17 [Rx] Scopolamine 1.5MG/72Hr Patch [TransDerm [place]op] 1 patch TRANSDERM Q72H #3 patch [Rx] Follow up Appointment(s)/Referral(s): Delonte Hadley DO [Primary Care Provider] - As Needed Activity/Diet/Wound Care/Special Instructions: [place] [facility] Discharge Disposition: [facility] TO [facility]
[2017-02-10] MEDS: SODIUM CHLORIDE 0.9% 500 ML IV SCH (13:47)
[2017-02-10 15:06] VITALS: BP 94/60; PULSE 105; RESP 16; TEMP 96.9
--- NOTE | 2017-02-28 20:32 | EEG ---
ELECTROENCEPHALOGRAM REPORT DATE OF EE02/03/2017. REFERRING PHYSICIAN: Dr. Jerez. INTERPRETING PHYSICIAN: Dr. Gely Kenny. INDICATION FOR EXAMINATION: This patient is a 51-year-old female being evaluated for altered mental status and left- sided weakness. AGE: 51. EEG FINDINGS: A routine 21-channel awake digital EEG recording was accomplished utilizing the 10-20 international system with bipolar and referential montages. The background activity in the most alert resting state consists of a low to medium amplitude poorly-developed and poorly-sustained 6 Hz activity over the posterior head regions. This posterior rhythm attenuates to eye opening. There is a small amount of low amplitude 18-20 Hz beta activity seen maximally over the anterior head regions. Hyperventilation was not performed. Photic stimulation at flash frequencies of 2-30 Hz produced a moderate occipital driving response. No epileptiform discharges were seen. IMPRESSION: This EEG is moderately abnormal in a diffuse fashion due to slowing of the EEG background. The EEG failed to reveal any focal, lateralized or epileptiform abnormalities. Clinical correlation is recommended. MMANDREIAL / IJN: [id number] /
== END 2017-02-10 17:43 | disposition hospice, inpatient (51) | DRG 45 ==
LOC: EC 12:47 → 6SEL 15:32 → 4MS4W 02-09 18:35
PROVIDERS: ADMIT Internal Medicine; ATTEND Internal Medicine
DX: I63.511 Cerebral infarction due to unspecified occlusion or stenosis of right middle cerebral artery (principal); J96.01 Acute respiratory failure with hypoxia; I21.A1 Myocardial infarction type 2; G82.50 Quadriplegia, unspecified; G92 Toxic encephalopathy; J91.0 Malignant pleural effusion; R18.0 Malignant ascites; C78.00 Secondary malignant neoplasm of unspecified lung; C78.7 Secondary malignant neoplasm of liver and intrahepatic bile duct; C18.2 Malignant neoplasm of ascending colon; E78.5 Hyperlipidemia, unspecified; F17.200 Nicotine dependence, unspecified, uncomplicated; F41.9 Anxiety disorder, unspecified; H51.8 Other specified disorders of binocular movement; J44.9 Chronic obstructive pulmonary disease, unspecified; J93.9 Pneumothorax, unspecified; J93.83 Other pneumothorax; N13.30 Unspecified hydronephrosis; N87.9 Dysplasia of cervix uteri, unspecified; R13.10 Dysphagia, unspecified; G81.94 Hemiplegia, unspecified affecting left nondominant side; Z51.5 Encounter for palliative care; Z79.01 Long term (current) use of anticoagulants; Z82.49 Family history of ischemic heart disease and other diseases of the circulatory system; Z86.711 Personal history of pulmonary embolism; Z86.718 Personal history of other venous thrombosis and embolism; Z88.0 Allergy status to penicillin; Z79.899 Other long term (current) drug therapy; Z85.038 Personal history of other malignant neoplasm of large intestine
CPT/HCPCS: 36415; 70450; 70470; 70496; 70498; 71010; 76604; 80048; 80053; 80061; 81003; 82550; 82553; 83735; 84100; 84484; 85025; 85027; 85610; 85730; 87086; 93005; 93306; 93880; 94640; 94760; 95819; 96360; 96361; 99291